=== PATIENT | female | born 1960 | race Caucasian/White ===

== ENCOUNTER 2016-10-08 16:12 | Emergency (ER) | payer OTHER ==
[~2016-10-08] VITALS: Ht 157.5 cm; Wt 136.1 kg
[2016-10-08] MEDS ORDERED: KHEDEZLA50 MG PO (16:27)
[2016-10-08] MEDS ORDERED: LASIX40 MG PO (16:27)
[2016-10-08] MEDS ORDERED: CIPRO500 MG PO (16:28)
[2016-10-08] MEDS ORDERED: KETOROLAC TROME10 MG PO (16:28)
[2016-10-08] MEDS ORDERED: METOPROLOL TART50 MG PO (16:28)
[2016-10-08] MEDS ORDERED: CIPRO500 MG/5 M PO (16:42)
== END 2016-10-08 16:48 | disposition home or self-care (01) ==
LOC: ED 16:12
DX: F41.9 Anxiety disorder, unspecified (principal); I10 Essential (primary) hypertension; E78.5 Hyperlipidemia, unspecified; Z90.710 Acquired absence of both cervix and uterus; Z90.89 Acquired absence of other organs; Z88.0 Allergy status to penicillin; Z88.2 Allergy status to sulfonamides; Z79.899 Other long term (current) drug therapy
CPT/HCPCS: 99283

== ENCOUNTER 2018-12-08 07:06 | Emergency (ER) | payer OTHER ==
[~2018-12-08] VITALS: Ht 157.5 cm; Wt 113.4 kg
--- OUTSIDE RECORDS SUMMARY | ~2018-12-08 | XMS | Encounter Summary ---
Demographics + + + | Address | [address] | | | [place] [address] | + + + | Home Phone | | + + + | Preferred Language | Unknown | + + + | Marital Status | Single | + + + | Moravian Affiliation | Unknown | + + + | Race | White | + + + | Ethnic Group | Not or | + + + Author + + + | Author | [facility] | + + + | Organization | [facility] | + + + | Address | Unknown | + + + | Phone | Unavailable | + + + Support + + +---------+ + | Name | Relationship | Address | Phone | + + +---------+ + | Fanny Baez | ECON | Unknown | | + + +---------+ + Care Team Providers + +------+ + | Care [place] Utility Worker Name | Role | Phone | + +------+ + | Irina Brooks | PCP | | + +------+ + Encounter Details +--------+ + + + + | Date | Type | Department | Care Team | Description | +--------+ + + + + | 03/26/ | MyChart | Cardiology General | | Please call to | | 2019 | Encounter | at [facility] [address] | | reschedule your | | | | Daron Luna Mailcode: | | Cardiology | | | | [address] [place] [address] for | | appointment | | | | Health and Healing, | | | | | | | | | | | | [place], [place] | | | | | | [address] | | | | | | [phone] | | | +--------+ + + + + Social History + +-------+ +--------+ + | Tobacco Use | Types | Packs/Day | Years | Date | | | | | Used | | + +-------+ +--------+ + | Former Smoker | | | | Quit: 02/05/1997 | + +-------+ +--------+ + + +---+---+---+ | Smokeless Tobacco: | | | | | Never Used | | | | + +---+---+---+ + + +---------+ + | Alcohol Use | Drinks/Week | oz/Week | Comments | + + +---------+ + | Not Asked | | | | + + +---------+ + + + + | Sex Assigned at | Date Recorded | | | | + + + | Not on file | | + + + + + + + | Job Start Date | Occupation | Industry | + + + + | Not on file | Not on file | Not on file | + + + + + + + + | Travel History | Travel Start | Travel End | + + + + + + | No recent travel history available. | + + documented as of this encounter Plan of Treatment Not on filedocumented as of this encounter Visit Diagnoses Not on filedocumented in this encounter"
--- OUTSIDE RECORDS SUMMARY | ~2018-12-08 | XMS | Encounter Summary ---
Demographics + + + | Address | [address] | | | [place] [address] | + + + | Home Phone | | + + + | Preferred Language | Unknown | + + + | Marital Status | Single | + + + | Scientologist Affiliation | Unknown | + + + | Race | White | + + + | Ethnic Group | Not or | + + + Author + + + | Author | [facility] | + + + | Organization | [facility] | + + + | Address | Unknown | + + + | Phone | Unavailable | + + + Support + + +---------+ + | Name | Relationship | Address | Phone | + + +---------+ + | Fanny Baez | ECON | Unknown | | + + +---------+ + Care Team Providers + +------+ + | Care Supervisor Concrete Block [employer] Name | Role | Phone | + +------+ + | Sky Solis MD | PCP | | + +------+ + Reason for Referral Consultation (Routine) +--------+--------+ + + + + | Status | Reason | Specialty | Diagnoses / | Referred By | Referred To | | | | | Procedures | Contact | Contact | +--------+--------+ + + + + | Closed | | Sleep | Diagnoses | Keesha Soriano | | | | Medicine | Sleep | MD Tani | Disorder Med | | | | | disorder | [address] | [address] | | | | | breathing | Ave | Jayson Crum | | | | | Metabolic | [place] | Jen Munoz | | | | | syndrome | [address] | Mailcode: | | | | | Procedures | Phone: | [phone] | | | | | CONSULT TO | [phone] | [place] | | | | | ADULT SLEEP | Fax: | Research | | | | | MEDICINE | [phone] | [place] [address] | | | | | | | [place], [place] | | | | | | | [address] | | | | | | | Phone: | | | | | | | [phone] | | | | | | | Fax: | | | | | | | [phone] | +--------+--------+ + + + + Reason for Visit + + + | Reason | Comments | + + + | Follow-up visit | | + + + Consultation (Routine) +--------+--------+ + + + + | Status | Reason | Specialty | Diagnoses / | Referred By | Referred To | | | | | Procedures | Contact | Contact | +--------+--------+ + + + + | Closed | | Cardiology | Diagnoses | Irma, | Christie | | | | | | Sky | MD Tani | | | | | Hyperlipidem | MD Wilfredo | [address] | | | | | ia | JULIAN | Cheryl | | | | | Procedures | INTERNAL | [place], [place] | | | | | CONSULT TO | MEDICINE | [address] | | | | | CARDIOLOGY | [address] | Phone: | | | | | | [address] | [phone] | | | | | | [address] | Fax: | | | | | | [place], | [phone] | | | | | | [place] [address] | | | | | | | Phone: | | | | | | | [phone] | | | | | | | Fax: | | | | | | | [phone] | | +--------+--------+ + + + + Encounter Details +--------+---------+ + + + | Date | Type | Department | Care Team | Description | +--------+---------+ + + + | 05/12/ | Office | Cardiology | Tani Soriano MD | Metabolic syndrome | | 2015 | Visit | Preventive at [facility] | [address] | (Primary Dx); Sleep | | | | [address] | [place], [place] | disorder breathing; | | | | Mailcode: CH9A | [address] | Vitamin D | | | | [facility] | [phone] | deficiency; | | | | and Healing, | | Hypothyroidism | | | | [address] | | | | | | [place], [place] | | | | | | [address] | | | | | | [phone] | | | +--------+---------+ + + + Social History + +-------+ +--------+ + | Tobacco Use | Types | Packs/Day | Years | Date | | | | | Used | | + +-------+ +--------+ + | Former Smoker | | | | Quit: 02/05/1997 | + +-------+ +--------+ + + + +---------+ + | Alcohol Use [...] + + documented as of this encounter Last Filed Vital Signs + + + + + | Vital Sign | Reading | Time Taken | Comments | + + + + + | Blood Pressure | 138/68 | 05/12/2014 1:53 PM | | | | | PDT | | + + + + + | Pulse | 70 | 05/12/2014 1:53 PM | | | | | PDT | | + + + + + | Temperature | 36.7 C (98 F) | 05/12/2014 1:53 PM | | | | | PDT | | + + + + + | Respiratory Rate | - | - | | + + + + + | Oxygen Saturation | 93% | 05/12/2014 1:53 PM | | | | | PDT | | + + + + + | Inhaled Oxygen | - | - | | | Concentration | | | | + + + + + | Weight | 137.8 kg (303 lb | 05/12/2014 1:53 PM | | | | 12.8 oz) | PDT | | + + + + + | Height | 155.7 cm (5' 1.3") | 05/12/2014 1:53 PM | | | | | PDT | | + + + + + | Body Mass Index | 56.84 | 05/12/2014 1:53 PM | | | | | PDT | | + + + + + documented in this encounter Progress Notes Tani Soriano MD - 05/12/2014 3:28 PM PDTFormatting of this note might be different from yvette goddard. Endocrinology Clinic Subjective Rebel Skinner is a 54 y.o. 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 Her weight w as 299 at home in the AM. Exercise: Not much because she has been working 14 hours daily, 6 days weekly. She walks her dog about weekly. She will start exercising next week after s he is done with the [employer] season. She has already joined a gym. She has occasional constipat ion and a dry moth, but she otherwise is tolerating the phentermine well. She has been sleep ing well. Her BP has been good. She had blood testing done through her PCP in mid-April, a bout 04/17/14. Her thyroid hormone results may have been slightly abnormal, but the rest of her results reportedly were normal. He increased her dose of of liothyronine from 5 to 7.5 mcg/d, but she has not started taking the higher dose yet because she is waiting to finish u sing the 5 mcg pills. 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/dl Metabolic syndrome Allergies Allergen Reactions Penicillin G Hives and Dyspnea Sulfa (Sulfonamide Antibiotics) Hives Current Outpatient Prescriptions Medication Sig ascorbic acid (VITAMIN C) 500 mg oral tablet Take 500 mg by mouth two times daily. Cholecalciferol, Vitamin D3, (VITAMIN D3) 2,000 unit oral tablet Take 2,000 Units by [facility] once daily. Desvenlafaxine (PRISTIQ) 50 mg oral tablet extended release 24 hr Take 50 mg by mouth o nce daily. levothyroxine 50 mcg oral tablet Take 50 mcg by mouth once daily. LOSARTAN-HYDROCHLOROTHIAZIDE ORAL Take by mouth. lovastatin 40 mg oral tablet Take 40 mg by mouth once daily in the evening. Administer with evening meal. meloxicam 15 mg oral tablet Take 15 mg by mouth once daily. metoprolol tartrate 50 mg oral tablet Take by mouth two times daily. phentermine 37.5 mg oral tablet 18.75 once daily in the morning. VITAMIN B COMPLEX ORAL Take by mouth. Physical Exam BP 138/68 | Pulse 70 | Temp (Src) 36.7 C (98 F) (Oral) | Ht 1.557 m (5' 1.3") | Wt 137. 803 kg (303 lb 12.8 oz) | SpO2 93% | BMI 56.84 kg/(m^2) Body mass index is 56.84 kg/(m^2). Alert, NAD, mood WNL Skin mild acanthosis nigricans Thyroid 20-25 g. No palpable nodules Cardiac-RRR, no murmur/S3/S4/rubs. No JVD. Pulses 2+. No bruits Abdomen: No hepatosplenomegaly, masses, or tenderness Extremities: trace to 1 + pretibial edema. Wt Readings from Last 4 Encounters: 05/12/14 137.803 kg (303 lb 12.8 oz) 01/06/14 139.164 kg (306 lb 12.8 oz) 10/28/13 141.069 kg (311 lb) Labs Component Latest Ref Rng 10/28/2013 10/28/2013 10/28/2013 10/28/2013 GLUCOSE, PL 60-99 mg/dL 95 BUN, PLASMA (LAB) 6-20 mg/dL [address] 0.6-1.10 mg/dL 0.83 EGFR >60 mL/min >60 SODIUM, PL 136-145 mmol/L 139 POTASSIUM, PL 3.4-5.0 mmol/L 3.6 CHLORIDE, PL 97-108 mmol/L 105 TOTAL CO2, PL 21-32 mmol/L 29 CALCIUM, PL 8.6-10.2 mg/dL 9.1 BILIRUBIN TOTAL 0.3-1.2 mg/dL 0.4 TOTAL PROTEIN, PLASMA (LAB) 6.4-8.2 g/dL 8.2 ALBUMIN, PLASMA 3.5-4.7 g/dL 3.6 ALK PHOS 42-98 U/L 90 AST(SGOT) 15-41 U/L 30 ALT (SGPT) 12-60 U/L 38 ANION GAP 5 CHOLESTEROL <200 mg/dL 160 TRIGLYCERIDES <150 mg/dL 147 HDL CHOL >40 mg/dL 53 LDL CHOLEST <100 mg/dL 78 VLDL CHOL <31 mg/dL 29 NON-HDL CHOL <130 mg/dL 107 TSH 0.50-5.07 mIU/L 1.09 FREE T4, SERUM 0.6-1.2 ng/dL 1.2 VITAMIN D 25-OH 30-80 ng/mL 30.5 ESR 0-30 mm/hr 43 (H) LIPOPROTEIN (A) <=29 mg/dL 102 (H) Component Latest Ref Rn 10/28/2013 WHITE CELL COUNT 4.40-11.00 K/cu mm 9.75 RED CELL COUNT 4.00-5.20 M/cu mm 4.52 HEMOGLOBIN 12.0-16.0 g/dL 13.4 HEMATOCRIT 36.0-46.0 % 40.2 MCV 80.0-96.0 fL 88.9 MCHC 33.0-35.5 g/dL 33.3 RDW SD 35.1-46.3 fL 44.8 PLATELET COUNT 150-400 K/cu mm 304 MPV 9.7-12.3 fL 8.7 (L) NRBC% 0.0-0.3 % 0.0 NRBC# 0.00-0.02 K/cu mm 0.00 NEUTROPHIL % 50.0-70.0 % 60.1 LYMPHOCYTE % 18.0-42.0 % 25.0 MONOCYTE % 3.5-9.0 % 7.7 EOS % 1.0-3.0 % 5.5 (H) BASO % 0.0-2.0 % 1.1 IMMATURE GRANULOCYTE% 0.0-0.6 % 0.6 NEUTROPHIL # 1.80-7.70 K/cu mm 5.85 LYMPHOCYTE # 1.00-4.80 K/cu mm 2.44 MONOCYTE # 0.10-0.90 K/cu mm 0.75 EOS # 0.00-0.50 K/cu mm 0.54 (H) BASO # 0.00-0.10 K/cu mm 0.11 (H) IMMATURE GRANULOCYTE# 0.00-0.03 K/cu mm 0.06 (H) Assessment Rebel Skinner is a 54 y.o. female who has medical problems noted above. 1. Dyslipidemia: High Lp(a), but mostly acceptable LDL-C, HDL-C and TG. An LDL-C < 70 may be preferable. Weight loss may help lower her LDL-C 2. Hypothyroidism: She has been euthyroid 3. BP is high normal, but acceptable for now 4. Metabolic syndrome: She has lost 3 more pounds of body weight, despite being less activ e. 5. Vitamin D deficiency: She was barely replete, but aceptable Plan 1. Have her PCP send us her recent lab results 2. She still needs to have a sleep study - she did not the person she saw with her sister chloé franz the [facility]. She will see someone here at [facility] 3. Continue phentermine 37.5 mg q AM 4. Resume regular exercise 5. Healthy dietary habits 6. RTC here in 4 months (due to long distance from [place] to [facility]) - F/U with PCP in yoly liriano visits here 7. Possible bariatric surgery after changing to her new insurance plan documented in this encounter Plan of Treatment Not on filedocumented as of this encounter Procedures + +--------+ + + + | Procedure Name | Priori | Date/Time | Associated Diagnosis | Comments | | | ty | | | | + +--------+ + + + | LAB REPORTS | | 04/24/2014 | | Results for this | | | | 12:00 AM | | procedure are in the | | | | PDT | | results section. | + +--------+ + + + documented in this encounter Results LAB REPORTS (04/24/2014 12:00 AM PDT) + + + | Narrative | Performed At | + + + | | | | | | + + + + + | Procedure Note | + + | Other, Faculty - 05/26/2014 2:32 PM PDT | + + documented in this encounter Visit Diagnoses + + | Diagnosis | + + | Metabolic syndrome - Primary Dysmetabolic Syndrome X | + + | Sleep disorder breathing Other sleep disturbances | + + | Vitamin D deficiency | + + | Hypothyroidism Unspecified hypothyroidism | + + documented in this encounter
--- OUTSIDE RECORDS SUMMARY | ~2018-12-08 | XMS | Encounter Summary ---
Demographics + + + | Address | [address] | | | [place] [address] | + + + | Home Phone | | + + + | Preferred Language | Unknown | + + + | Marital Status | Single | + + + | Taoism Affiliation | Unknown | + + + | Race | White | + + + | Ethnic Group | Not or | + + + Author + + + | Author | [facility] | + + + | Organization | [facility] | + + + | Address | Unknown | + + + | Phone | Unavailable | + + + Support + + +---------+ + | Name | Relationship | Address | Phone | + + +---------+ + | Fanny Baez | ECON | Unknown | | + + +---------+ + Care Team Providers + +------+ + | Care Casing Inspector Name | Role | Phone | + +------+ + | Sky Solis MD | PCP | | + +------+ + Encounter Details +--------+ + + + + | Date | Type | Department | Care Team | Description | +--------+ + + + + | 05/26/ | Abstract | Cardiology | Tani Soriano MD | | | 2017 | | Preventive at [facility] | [address] | | | | | [address] | [place], [place] | | | | | Mailcode: CH9A | [address] | | | | | [facility] | [phone] | | | | | and [place], | | | | | | [address] | | | | | | [place], [place] | | | | | | [address] | | | | | | [phone] | | | +--------+ + + + [...]
--- OUTSIDE RECORDS SUMMARY | ~2018-12-08 | XMS | Encounter Summary ---
Demographics + + + | Address | [address] | | | [place] [address] | + + + | Home Phone | | + + + | Preferred Language | Unknown | + + + | Marital Status | Single | + + + | Sikh Affiliation | Unknown | + + + | Race | White | + + + | Ethnic Group | Not or | + + + Author + + + | Author | [facility] | + + + | Organization | [facility] | + + + | Address | Unknown | + + + | Phone | Unavailable | + + + Support + + +---------+ + | Name | Relationship | Address | Phone | + + +---------+ + | Fanny Baez | ECON | Unknown | | + + +---------+ + Care Team Providers + +------+ + | Care Patient Financial Services Coordinator Name | Role | Phone | + [...] | | | | | disorder | [address] | [address] | | | | | breathing | Ave | Jayson Crum | | | | | Metabolic | [place] | Jen Munoz | | | | | syndrome | [address] | Mailcode: | | | | | Procedures | Phone: | [id number] | | | | | CONSULT TO | [phone] | [place] | | | | | ADULT SLEEP | Fax: | Research | | | | | MEDICINE | [phone] | [address] [address] | | | | | | | [place], [place] | | | | | | | [address] | | | | | | | Phone: | | | | | | | [phone] | | | | | | | Fax: | | | | | | | [phone] | +--------+--------+ + + + + Reason [...] | | Hyperlipidem | MD Wilfredo | [address] | | | | | ia | JUL[place] | Cheryl | | | | | Procedures | INTERNAL | [place], [place] | | | | | CONSULT TO | MEDICINE | [address] | | | | | CARDIOLOGY | [address] | Phone: | | | | | | [address] | [phone] | | | | | | [address] | Fax: | | | | | | [place], | [phone] | | | | | | [place] [address] | | | | | | | Phone: | | | | | | | [phone] | | | | | | | Fax: | | | | | | | [phone] | | +--------+--------+ + + + + Encounter Details +--------+---------+ + + + | Date | Type | Department | Care Team | Description | +--------+---------+ + + + | 05/12/ | Office | Cardiology | Tani Soriano MD | Metabolic syndrome | | 2015 | Visit | Preventive at [facility] | [address] | (Primary Dx); Sleep | | | | [address] | [place], [place] | disorder breathing; | | | | Mailcode: CH9A | [address] | Vitamin D | | | | [facility] | [phone] | deficiency; | | | | and Healing, | | Hypothyroidism | | | | [address] | | | | | | [place], [place] | | | | | | [address] | | | | | | [phone] | | | +--------+---------+ + + + [...] after s he is done with the [employer] (?) season. She has already joined a gym. [...] unit oral tablet Take 2,000 Units by [facility] once daily. Desvenlafaxine (PRISTIQ) 50 mg oral [...] saw with her sister chloé franz the [facility]. She will see someone here at [facility] 3. Continue phentermine 37.5 mg q AM 4. Resume regular exercise 5. Healthy dietary habits 6. RTC here in 4 months (due to long distance from [place] to [facility]) - F/U with PCP in [...]
--- OUTSIDE RECORDS SUMMARY | ~2018-12-08 | XMS | Encounter Summary ---
Demographics + + + | Address | [address] | | | [place] [address] | + + + | Home Phone | | + + + | Preferred Language | Unknown | + + + | Marital Status | Single | + + + | Baptism Affiliation | Unknown | + + + | Race | White | + + + | Ethnic Group | Not or | + + + Author + + + | Author | [facility] | + + + | Organization | [facility] | + + + | Address | Unknown | + + + | Phone | Unavailable | + + + Support + + +---------+ + | Name | Relationship | Address | Phone | + + +---------+ + | Fanny Baez | ECON | Unknown | | + + +---------+ + Care Team Providers + +------+ + | Care Special Education Administrator Name | Role | Phone | + +------+ + | Sky Solis MD | PCP | | + +------+ + Encounter Details +--------+ + + + + | Date | Type | Department | Care Team | Description | +--------+ + + + + | 09/13/ | MyChart | Cardiology | Tani Soriano MD | RE: Gastric Surgery | | 2017 | Encounter | Preventive at [facility] | [address] | | | | | [address] | [place], [place] | | | | | Mailcode: CH9A | [address] | | | | | [facility] | [phone] | | | | | and Healing, | | | | | | [address] | | | | | | [place], [place] | | | | | | [address] | | | | | | [phone] | | | +--------+ + + + [...]
--- OUTSIDE RECORDS SUMMARY | ~2018-12-08 | XMS | Encounter Summary ---
Demographics + + + | Address | [address] | | | [place] [address] | + + + | Home Phone | | + + + | Preferred Language | Unknown | + + + | Marital Status | Single | + + + | Presybeterian Affiliation | Unknown | + + + | Race | White | + + + | Ethnic Group | Not or | + + + Author + + + | Author | [facility] | + + + | Organization | [facility] | + + + | Address | Unknown | + + + | Phone | Unavailable | + + + Support + + +---------+ + | Name | Relationship | Address | Phone | + + +---------+ + | Fanny Baez | ECON | Unknown | | + + +---------+ + Care Team Providers + +------+ + | Care Quality Assurance Manager Name | Role | Phone | + +------+ + | Sky Solis MD | PCP | | + +------+ + Reason for Visit + + + | Reason | Comments | + + + | Follow-up in | | | outpatient clinic | | + + + | Follow-up visit | | + + + Consultation (Routine) +--------+--------+ + + + + | Status | Reason | Specialty | Diagnoses / | Referred By | Referred To | | | | | Procedures | Contact | Contact | +--------+--------+ + + + + | Closed | | Sleep | Diagnoses | Christie | Myles | | | | Medicine | Sleep | MD Tani | Disorder Med | | | | | disorder | [address] | [address] | | | | | breathing | [address] | [address] | | | | | Metabolic | [place], [place] | Jen Munoz | | | | | syndrome | [address] | Mailcode: | | | | | Procedures | Phone: | [id number] | | | | | CONSULT TO | [phone] | [facility] | | | | | ADULT SLEEP | Fax: | Research | | | | | MEDICINE | [phone] | [place] [address] | | | | | | | [place], [place] | | | | | | | [address] | | | | | | | Phone: | | | | | | | [phone] | | | | | | | Fax: | | | | | | | [phone] | +--------+--------+ + + + + Encounter Details +--------+---------+ + + + | Date | Type | Department | Care Team | Description | +--------+---------+ + + + | 05/18/ | Office | Sleep Disorder | Fatmata Travis MD | Obstructive sleep | | 2016 | Visit | [facility] | [address] | apnea (Primary Dx) | | | | [facility] | Jen Munoz [place], | | | | | [address] | [place] [address] | | | | | Jen Munoz Mailcode: | [phone] | | | | | [address]139 [facility] | | | | | | [facility] | | | | | | [address] [place], [place] | | | | | | [address] | | | | | | [phone] | | | +--------+---------+ + + + [...] + + + | Blood Pressure | 143/68 | 05/19/2015 9:54 AM | | | | | PDT | | + + + + + | Pulse | 86 | 05/19/2015 9:54 AM | | | | | PDT | | + + + + + | Temperature | - | - | | + + + + + | Respiratory Rate | - | - | | + + + + + | Oxygen Saturation | 94% | 05/19/2015 9:54 AM | | | | | PDT | | + + + + + | Inhaled Oxygen | - | - | | | Concentration | | | | + + + + + | Weight | 143.8 kg (317 lb) | 05/19/2015 9:54 AM | | | | | PDT | | + + + + + | Height | 157.5 cm (5' 2") | 05/19/2015 9:54 AM | | | | | PDT | | + + + + + | Body Mass Index | 57.98 | 05/19/2015 9:54 AM | | | | | PDT | | + + + + + documented in this encounter Progress Notes Fatmata Travis MD - 05/19/2015 9:47 AM PDTFormatting of this note might be different from th e original. [facility] Sleep Disorders Program Followup ASSESSMENT/PLAN Rebel Skinner has h/o GERD reports snoring, EDS, awakening coughing htn, HL, situational depression, ordered split PSG last visit 09/2014. spencer study 11/24 14 revealed severe CARLENE 29/hr, O2 Kenny 84%. 01/2015: start APAP 6-15 from [facility] in [place]. -Encouraged weight loss. -Followup: Next Appointment in [facility] is on 05/19/15 at 10:00 am with Fatmata Travis MD. Subjective In the interim since last visit she was told insurance wouldn't cover pap. Has sisters pap (got today. 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 Metabolic syndrome Past Medical History Diagnosis Date Morbid obesity with BMI of 50.0-59.9, adult (HCC) 10/28/2013 Hyperlipidemia 10/28/2013 Vitamin D deficiency 10/28/2013 Hypothyroidism 10/28/2013 Unspecified essential hypertension Thyroid nodule Depression Current outpatient prescriptions: ascorbic acid (VITAMIN C) 500 mg oral tablet, Take 500 mg by mouth once daily., Disp: , Rfl: ASPIRIN (ASPIR-81 ORAL), Take by mouth., Disp: , Rfl: Cholecalciferol, Vitamin D3, (VITAMIN D3) 2,000 unit oral tablet, Take 2,000 Units by mouth once daily., Disp: , Rfl: Desvenlafaxine (PRISTIQ) 50 mg oral tablet extended release 24 hr, Take 50 mg by mouth once daily., Disp: , Rfl: liothyronine (CYTOMEL) 5 mcg oral tablet, Take 5 mcg by mouth once daily., Disp: , Rfl: losartan-hydrochlorothiazide 100-25 mg oral tablet, Take 1 tablet by mouth once daily., Dis p: , Rfl: lovastatin 40 mg oral tablet, Take 40 mg by mouth once daily in the evening. Administer wit h evening meal., Disp: , Rfl: meloxicam 15 mg oral tablet, Take 15 mg by mouth once daily., Disp: , Rfl: metoprolol tartrate 50 mg oral tablet, Take by mouth two times daily., Disp: , Rfl: MOMETASONE FUROATE, BULK, MISC, Apply to affected area. Indications: aplly 1% cream topica lly, Disp: , Rfl: omeprazole 20 mg oral capsule,delayed release(DR/EC), Take 20 mg by mouth once daily., Disp : , Rfl: phentermine 37.5 mg oral tablet, Take 1 tablet by mouth once daily in the morning., Disp: 9 0 tablet, Rfl: 1 VITAMIN B COMPLEX ORAL, Take 1 tablet by mouth once daily., Disp: , Rfl: Objective There were no vitals taken for this visit. estimated body mass index is 57.44 kg/(m^2) as calculated from a height of 1.575 m (5' 2") as of 01/13/15 and a weight of 142.475 kg (314 lb 1.6 oz) as of 01/13/15. I reviewed the sleep questionnaire including a 12 point review of systems. Physical Exam Constitutional: Oriented to person, place, and time and well-developed, well-nourished, and in no distress. Head: Normocephalic and atraumatic. Nose: Nose normal. Eyes: Conjunctivae and EOM are normal. Neck: Normal range of motion. Musculoskeletal: Normal range of motion. Neurological: He is alert and oriented to person, place, and time. EOMI Skin: Skin is warm and dry. Psychiatric: Affect and judgment normal. Nursing note and vitals reviewed. documented in this encoun ter Plan of Treatment Not on filedocumented as of this encounter Visit Diagnoses + + | Diagnosis | + + | Obstructive sleep apnea - Primary Obstructive sleep apnea (adult) (pediatric) | + + documented in this encounter
--- OUTSIDE RECORDS SUMMARY | ~2018-12-08 | XMS | Encounter Summary ---
Demographics + + + | Address | [address] | | | [place] [address] | + + + | Home Phone | | + + + | Preferred Language | Unknown | + + + | Marital Status | Single | + + + | Buddhism Affiliation | Unknown | + + + | Race | White | + + + | Ethnic Group | Not or | + + + Author + + + | Author | [facility] | + + + | Organization | [facility] | + + + | Address | Unknown | + + + | Phone | Unavailable | + + + Support + + +---------+ + | Name | Relationship | Address | Phone | + + +---------+ + | Fanny Baez | ECON | Unknown | | + + +---------+ + Care Team Providers + +------+ + | Care Pipe Roller Name | Role | Phone | + +------+ + | Sky Solis MD | PCP | | + +------+ + Encounter Details +--------+ + + + + | Date | Type | Department | Care Team | Description | +--------+ + + + + | 12/04/ | Abstract | Cardiology | Tani Soriano MD | | | 2017 | | Preventive at [facility] | [address] | | | | | [address] | [place], [place] | | | | | Mailcode: CH9A | [address] | | | | | [facility] | [phone] | | | | | and [address], | | | | | | [address] | | | | | | [place], [place] | | | | | | [address] | | | | | | [phone] | | | +--------+ + + + [...]
--- OUTSIDE RECORDS SUMMARY | ~2018-12-08 | XMS | Encounter Summary ---
Demographics + + + | Address | [address] | | | [place] [address] | + + + | Home Phone | | + + + | Preferred Language | Unknown | + + + | Marital Status | Single | + + + | Baptist Affiliation | Unknown | + + + | Race | White | + + + | Ethnic Group | Not or | + + + Author + + + | Author | [facility] | + + + | Organization | [facility] | + + + | Address | Unknown | + + + | Phone | Unavailable | + + + Support + + +---------+ + | Name | Relationship | Address | Phone | + + +---------+ + | Fanny Baez | ECON | Unknown | | + + +---------+ + Care Team Providers + +------+ + | Care Credit Union Examiner Name | Role | Phone | + +------+ + | Sky Solis MD | PCP | | + +------+ + Encounter Details +--------+ + + + + | Date | Type | Department | Care Team | Description | +--------+ + + + + | 12/13/ | Abstract | Cardiology | Tani Soriano MD | | | 2017 | | Preventive at [facility] | [address] | | | | | [address] | [place], [place] | | | | | Mailcode: CH9A | [address] | | | | | [facility] | [phone] | | | | | and [address], | | | | | | [address] | | | | | | [place], [place] | | | | | | [address] | | | | | | [phone] | | | +--------+ + + + [...]
--- OUTSIDE RECORDS SUMMARY | ~2018-12-08 | XMS | Encounter Summary ---
Demographics + + + | Address | [address] | | | [place] [address] | + + + | Home Phone | | + + + | Preferred Language | Unknown | + + + | Marital Status | Single | + + + | Advent Affiliation | Unknown | + + + | Race | White | + + + | Ethnic Group | Not or | + + + Author + + + | Author | [facility] | + + + | Organization | [facility] | + + + | Address | Unknown | + + + | Phone | Unavailable | + + + Support + + +---------+ + | Name | Relationship | Address | Phone | + + +---------+ + | Fanny Baez | ECON | Unknown | | + + +---------+ + Care Team Providers + +------+ + | Care Corn Miller Name | Role | Phone | + +------+ + | Sky Solis MD | PCP | | + +------+ + Encounter Details +--------+ + + + + | Date | Type | Department | Care Team | Description | +--------+ + + + + | 06/22/ | Abstract | Cardiology | Tani Soriano MD | | | 2016 | | Preventive at [facility] | [address] | | | | | [address] | [place], [place] | | | | | Mailcode: CH9A | [address] | | | | | [facility] | [phone] | | | | | and [address], | | | | | | [address] | | | | | | [place], [place] | | | | | | [address] | | | | | | [phone] | | | +--------+ + + + [...]
--- OUTSIDE RECORDS SUMMARY | ~2018-12-08 | XMS | Encounter Summary ---
Demographics + + + | Address | [address] | | | [place] [address] | + + + | Home Phone | | + + + | Preferred Language | Unknown | + + + | Marital Status | Single | + + + | Nondenominational Affiliation | Unknown | + + + | Race | White | + + + | Ethnic Group | Not or | + + + Author + + + | Author | [facility] | + + + | Organization | [facility] | + + + | Address | Unknown | + + + | Phone | Unavailable | + + + Support + + +---------+ + | Name | Relationship | Address | Phone | + + +---------+ + | Fanny Baez | ECON | Unknown | | + + +---------+ + Care Team Providers + +------+ + | Care Lumber Carrier Operator Name | Role | Phone | + +------+ + | Sky Solis MD | PCP | | + +------+ + Encounter Details +--------+------+ + + + | Date | Type | Department | Care Team | Description | +--------+------+ + + + | 09/16/ | Lab | Laboratory at [facility] | | Hyperlipidemia; | | 2014 | | [address] | | Hypothyroidism, | | | | [place], [place] | | unspecified | | | | [address] | | hypothyroidism type; | | | | [phone] | | Metabolic syndrome; | | | | | | Vitamin D | | | | | | deficiency | +--------+------+ + + + Social History + +-------+ [...] | + +--------+ + + + | LIPID LAB [facility] - | Routin | 09/16/2014 | Hyperlipidemia | Results for this | | LIPID PROFILE- | e | 1:15 PM | Hypothyroidism, | procedure are in the | | PLASMA LIPIDS, HDL | | PDT | unspecified | results section. | | AND LDL | | | hypothyroidism type | | | | | | Metabolic syndrome | | + +--------+ + + + | VITAMIN D, | Routin | 09/16/2014 | Vitamin D | Results for this | | 25-HYDROXY, SERUM | e | 1:15 PM | deficiency | procedure are in the | | | | PDT | | results section. | + +--------+ + + + | COMPLETE METABOLIC | Routin | 09/16/2014 | Hyperlipidemia | Results for this | | SET | e | 1:15 PM | Vitamin D deficiency | procedure are in the | | (NA,K,CL,CO2,BUN,CRE | | PDT | Hypothyroidism, | results section. | | AT,GLUC,CA,AST,ALT,B | | | unspecified | | | IGGY TOTAL,ALK | | | hypothyroidism type | | | PHOS,ALB,PROT TOTAL) | | | Metabolic syndrome | | + +--------+ + + + documented in this encounter Results VITAMIN D, 25-HYDROXY, SERUM (09/16/2014 1:15 PM PDT) + +-------+ + + + | Component | Value | Ref Range | Performed | Pathologist | | | | | At | Signature | + +-------+ + + + | VITAMIN D | 33.1 | 30 - 80 ng/mL | [facility] | | | 25 HYDROXY | | | LABORATORY | | | | | | SERVICES, | | | | | | SPECIAL IMM | | | | | | + COAG | | + +-------+ + + + + + | Specimen | + + | Blood - Blood | + + + + + | Narrative | Performed At | + + + | REFERENCE INTERVAL: Vitamin D, 25-Hydroxy 0-17years: | [facility] | | Deficiency: less than 20 ng/mL Optimum level: | LABORATORY | | greater than or equal to 20 ng/mL* | SERVICES, | | *(Allison CL et al. Pediatrics 2008; 122:1128-38.) 18 | SPECIAL IMM + | | years and older: Deficiency: less than 20 | COAG | | ng/mL Insufficiency: 20-29 ng/mL | | | Optimum Level: 30-80 ng/mL High: | | | 81-150 ng/ml Toxic: Greater than | | | 150 ng/mL This assay accurately quantifies the sum of Vitamin D3 | | | 25-hydroxy and Vitamin D2, 25-hydroxy. Reference range | | | change effective 08/29/2012. | | + + + + + + + + | Performing | Address | City/State/Zipcode | Phone Number | | Organization | | | | + + + + + | [facility] | [address] | [place] [address] | | | SERVICES, SPECIAL | [address] | | | | IMM + [place]AG | | | | + + + + + COMPLETE METABOLIC SET (NA,K,CL,CO2,BUN,CREAT,GLUC,CA,AST,ALT,BILI TOTAL,ALK PHOS,ALB,PROT TOTAL) (09/16/2014 1:15 PM PDT) + +---------+ + + + | Component | Value | Ref Range | Performed | Pathologist | | | | | At | Signature | + +---------+ + + + | GLUCOSE, | 82 | 60 - 99 mg/dL | [facility] | | | PLASMA | | | LABORATORY | | | (LAB) | | | SERVICES, | | | | | | CORE | | + +---------+ + + + | BUN, PLASMA | 15 | 6 - 20 mg/dL | [facility] | | | (LAB) | | | LABORATORY | | | | | | SERVICES, | | | | | | CORE | | + +---------+ + + + | CREATININE | 0.82 | 0.60 - 1.10 | [facility] | | | PLASMA | | mg/dL | LABORATORY | | | (LAB) | | | SERVICES, | | | | | | CORE | | + +---------+ + + + | EGFR | >60 | >60 mL/min | [facility] | | | - | | | LABORATORY | | | [facility] | | | SERVICES, | | | | | | CORE | | + +---------+ + + + | EGFR NON | >60 | >60 mL/min | [facility] | | | -[facility] | | | LABORATORY | | | [facility] | | | SERVICES, | | | | | | CORE | | + +---------+ + + + | SODIUM, | 139 | 136 - 145 | [facility] | | | PLASMA | | mmol/L | LABORATORY | | | (LAB) | | | SERVICES, | | | | | | CORE | | + +---------+ + + + | POTASSIUM, | 4.2 | 3.4 - 5.0 | [facility] | | | PLASMA | | mmol/L | LABORATORY | | | (LAB) | | | SERVICES, | | | | | | CORE | | + +---------+ + + + | CHLORIDE, | 100 | 97 - 108 mmol/L | [facility] | | | PLASMA | | | LABORATORY | | | (LAB) | | | SERVICES, | | | | | | CORE | | + +---------+ + + + | TOTAL CO2, | 28 | 21 - 32 mmol/L | [facility] | | | PLASMA | | | LABORATORY | | | (LAB) | | | SERVICES, | | | | | | CORE | | + +---------+ + + + | CALCIUM, | 9.9 | 8.6 - 10.2 | [facility] | | | PLASMA | | mg/dL | LABORATORY | | | (LAB) | | | SERVICES, | | | | | | CORE | | + +---------+ + + + | BILIRUBIN | 0.3 | 0.3 - 1.2 mg/dL | [facility] | | | TOTAL | | | LABORATORY | | | | | | SERVICES, | | | | | | CORE | | + +---------+ + + + | TOTAL | 8.3 (H) | 6.4 - 8.2 g/dL | [facility] | | | PROTEIN, | | | LABORATORY | | | PLASMA | | | SERVICES, | | | (LAB) | | | CORE | | + +---------+ + + + | ALBUMIN, | 3.7 | 3.5 - 4.7 g/dL | [facility] | | | PLASMA | | | LABORATORY | | | (LAB) | | | SERVICES, | | | | | | CORE | | + +---------+ + + + | ALK PHOS | 102 (H) | 42 - 98 U/L | [facility] | | | | | | LABORATORY | | | | | | SERVICES, | | | | | | CORE | | + +---------+ + + + | AST(SGOT) | 35 | <=41 U/L | [facility] | | | | | | LABORATORY | | | | | | SERVICES, | | | | | | CORE | | + +---------+ + + + | ALT (SGPT) | 49 | <=60 U/L | [facility] | | | | | | LABORATORY | | | | | | SERVICES, | | | | | | CORE | | + +---------+ + + + | ANION | 11 | 4 - 11 mmol/L | [facility] | | | GAP(ALB | | | LABORATORY | | | CORRECTED) | | | SERVICES, | | | | | | CORE | | + +---------+ + + + | POTASSIUM | No Hemo | | [facility] | | | CMNT | | | LABORATORY | | | | | | SERVICES, | | | | | | CORE | | + +---------+ + + + | BILI T CMNT | No Hemo | | [facility] | | | | | | LABORATORY | | | | | | SERVICES, | | | | | | CORE | | + +---------+ + + + | AST CMNT | No Hemo | | [facility] | | | | | | LABORATORY | | | | | | SERVICES, | | | | | | CORE | | + +---------+ + + + | ANION GAP | 11 | mmol/L | [facility] | | | | | | LABORATORY | | | | | | SERVICES, | | | | | | CORE | | + +---------+ + + + + + | Specimen | + + | Blood - Blood | + + + + + | Narrative | Performed At | + + + | GFR is estimated using the MDRD equation recommended by the | [facility] | | National Kidney Disease Education Program. Estimated GFR | LABORATORY | | Interpretive Information: <60 mL/min/1.73 sq m | SERVICES, CORE | | Chronic Kidney Disease <15 mL/min/1.73 sq m | | | Kidney Failure Estimated GFR greater that 60 mL/min/1.73 sq m is of | | | limited clinical value. The MDRD equation is not valid in the | | | following situations: - Patients under 18 years of age - Severe | | | malnutrition or obesity - Vegetarian diet - Rapidly changing kidney | | | function | | + + + + + + + + | Performing | Address | City/State/Zipcode | Phone Number | | Organization | | | | + + + + + | [facility] | [address] | [place] [address] | | | [address]DA GONZALE[address] | [address] | | | + + + + + LIPID LAB - LIPID LAB PROFILE- PLASMA LIPIDS, HDL AND LDL (09/16/2014 1:15 PM PDT) + +---------+ + + + | Component | Value | Ref Range | Performed | Pathologist | | | | | At | Signature | + +---------+ + + + | TOTAL | 164 | <=200 mg/dl | [facility] | | | CHOLESTEROL | | | LAB | | | - LIPID | | | | | | LAB | | | | | + +---------+ + + + | VLDL | 35 (H) | <=31 mg/dl | [facility] | | | CHOLESTEROL | | | LAB | | | , | | | | | | CALCULATED | | | | | | - LIPID LAB | | | | | + +---------+ + + + | LDL, | 80 | <=100 mg/dl | [facility] | | | CHOLESTEROL | | | LAB | | | - LIPID | | | | | | LAB | | | | | + +---------+ + + + | HDL, | 49 | 49 - 120 mg/dl | [facility] | | | CHOLESTEROL | | | LAB | | | - LIPID | | | | | | LAB | | | | | + +---------+ + + + | TOTAL | 173 (H) | <=150 mg/dl | [facility] | | | TRIGLYCERID | | | LAB | | | E - LIPID | | | | | | LAB | | | | | + +---------+ + + + | NON-HDL | 115 | <=130 mg/dL | [facility] | | | CHOLESTEROL | | | LAB | | | (LIPID | | | | | | LAB) | | | | | + +---------+ + + + + + | Specimen | + + | Blood - Blood | + + + + + + + | Performing | Address | City/State/Zipcode | Phone Number | | Organization | | | | + + + + + | [facility] | [address] | [place], [place] | | | | [address] | [address] | | + + + + + | [facility] | [address] | [place], [place] | | | | [address] | [address] | | + + + + + documented in this encounter Visit Diagnoses + + | Diagnosis | + + | Hyperlipidemia Other and unspecified hyperlipidemia | + + | Hypothyroidism, unspecified hypothyroidism type | + + | Metabolic syndrome Dysmetabolic Syndrome X | + + | Vitamin D deficiency | + + documented in this encounter"
--- OUTSIDE RECORDS SUMMARY | ~2018-12-08 | XMS | Encounter Summary ---
Demographics + + + | Address | [address] | | | [place] [address] | + + + | Home Phone | | + + + | Preferred Language | Unknown | + + + | Marital Status | Single | + + + | Sabianism Affiliation | Unknown | + + + | Race | White | + + + | Ethnic Group | Not or | + + + Author + + + | Author | [facility] | + + + | Organization | [facility] | + + + | Address | Unknown | + + + | Phone | Unavailable | + + + Support + + +---------+ + | Name | Relationship | Address | Phone | + + +---------+ + | Fanny Baez | ECON | Unknown | | + + +---------+ + Care Team Providers + +------+ + | Care Remediation Consultant Name | Role | Phone | + +------+ + | Sky Solis MD | PCP | | + +------+ + Reason for Visit Consultation (Routine) +--------+--------+ + + + + | Status | Reason | Specialty | Diagnoses / | Referred By | Referred To | | | | | Procedures | Contact | Contact | +--------+--------+ + + + + | Closed | | Cardiology | Diagnoses | Irma, | Christie | | | | | Keesha Swanson | MD Tani | | | | | Hyperlipidem | MD Wilfredo | [address] | | | | | ia Ele[address] | [address] | [address] | | | | | | INTERNAL | [place], [place] | | | | | lipoprotein( | MEDICINE | [address] | | | | | a) | [address] | Phone: | | | | | Hypothyroidi | [address] | [phone] | | | | | sm | [address] | Fax: | | | | | Metabolic | [place], | [phone] | | | | | syndrome | [place] [address] | | | | | | Procedures | Phone: | | | | | | CONSULT TO | [phone] | | | | | | CARDIOLOGY | Fax: | | | | | | | [phone] | | +--------+--------+ + + + + Encounter Details +--------+---------+ + + + | Date | Type | Department | Care Team | Description | +--------+---------+ + + + | 05/18/ | Office | Cardiology | Tani Soriano MD | Hyperlipidemia, | | 2016 | Visit | Preventive at [facility] | [address] | unspecified | | | | [address] | [place], [place] | hyperlipidemia type | | | | Mailcode: CH9A | [address] | (Primary Dx); | | | | [place] [facility] | [phone] | Metabolic syndrome; | | | | and Healing, | | Other specified | | | | Building [address] | | hypothyroidism; CARLENE | | | | [place], [place] | | (obstructive sleep | | | | [address] | | apnea) - sleep study | | | | [phone] | | in [facility] of | | | | | | 30 per hour. | +--------+---------+ + + + Social History [...] + + + | Blood Pressure | 144/81 | 05/19/2015 12:08 PM | | | | | PDT | | + + + + + | Pulse | 92 | 05/19/2015 12:08 PM | | | | | PDT | | + + + + + | Temperature | - | - | | + + + + + | Respiratory Rate | - | - | | + + + + + | Oxygen Saturation | 98% | 05/19/2015 12:08 PM | | | | | PDT | | + + + + + | Inhaled Oxygen | - | - | | | Concentration | | | | + + + + + | Weight | 143.8 kg (317 lb) | 05/19/2015 12:08 PM | | | | | PDT | | + + + + + | Height | 157.5 cm (5' 2") | 05/19/2015 12:08 PM | | | | | PDT | | + + + + + | Body Mass Index | 57.98 | 05/19/2015 12:08 PM | | | | | PDT | | + + + + + documented in this encounter Progress Notes Tani Soriano MD - 05/19/2015 1:13 PM PDTFormatting of this note might be different from yvette goddard. Endocrinology Clinic Subjective Rebel Skinner is a 55 y.o. 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 She has not started using CPAP yet, but she will receive a device next week. Exercise: Not much. She is planning to start exercising with her 16 yo niece. Her son with metastatic cancer F eb 12th. This is the second child that she has lost. Another child from SIDS. She is having a lot of grief, as expected. She has not been trying to eat healthy foods. Her BP h as been okay at home < 140/76. It is probably high today because she did not take her antih ypertensive medications this AM. She has also been walking a lot this AM prior to her appoi ntment. She is tolerating the phentermine 37.5 mg well. She takes it at 8 AM. She had the sleep study in [facility] and apparently was found to have an AHI of 30 per hour . CPAP has been ordered, but she is still trying to appeal a blockade by her insurance plan . 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 Metabolic syndrome CARLENE (obstructive sleep apnea) - sleep study in [facility] of 30 per hour. Allergies Allergen Reactions Penicillin G Hives and Dyspnea Sulfa (Sulfonamide Antibiotics) Hives Current Medications Patient is Taking: Ascorbic Acid 500 Mg Tablet - Take 500 mg by mouth once daily. Aspir-81 Oral - Take by mouth. Cholecalciferol (vitamin D3) 2,000 Unit Tablet - Take 2,000 Units by mouth once daily. Desvenlafaxine Succinate Er 50 Mg Tablet,extended Release 24 Hr - Take 50 mg by mouth o nce daily. Liothyronine 5 Mcg Tablet - Take 5 mcg by mouth once daily. Losartan 100 Mg-hydrochlorothiazide 25 Mg Tablet - Take 1 tablet by mouth once daily. Lovastatin 40 Mg Tablet - Take 40 mg by mouth once daily in the evening. Administer wit h evening meal. Meloxicam 15 Mg Tablet - Take 15 mg by mouth once daily. Metoprolol Tartrate 50 Mg Tablet - Take by mouth two times daily. Mometasone Furoate (bulk) Misc - Apply to affected area. Indications: aplly 1% cream t opically Omeprazole 20 Mg Capsule,delayed Release - Take 20 mg by mouth once daily. Phentermine 37.5 Mg Tablet - Take 1 tablet by mouth once daily in the morning. Vitamin B Complex Oral - Take 1 tablet by mouth once daily. Physical Exam BP 144/81 | Pulse 92 | Ht 1.575 m (5' 2") | Wt 143.79 kg (317 lb) | SpO2 98% | BMI 57.97 kg /(m^2) Body mass index is 57.97 kg/(m^2). Alert, NAD, mood WNL Skin mild acanthosis nigricans Thyroid 20-25 g. No palpable nodules Cardiac-RRR, no murmur/S3/S4/rubs. No JVD. Pulses 2+. No bruits Abdomen: No hepatosplenomegaly, masses, or tenderness Extremities: trace pretibial edema. Wt Readings from Last 10 Encounters: 05/19/15 143.79 kg (317 lb) 05/19/15 143.79 kg (317 lb) 05/19/15 143.79 kg (317 lb) 01/13/15 142.475 kg (314 lb 1.6 oz) 01/12/15 142.429 kg (314 lb) 09/16/14 141.658 kg (312 lb 4.8 oz) 09/16/14 141.658 kg (312 lb 4.8 oz) 05/12/14 137.803 kg (303 lb 12.8 oz) [...] <=29 mg/dL 102 (H) Component Latest Ref Rng 10/28/2013 WHITE CELL COUNT 4.40-11.00 K/cu mm [...] IMMATURE GRANULOCYTE# 0.00-0.03 K/cu mm 0.06 (H) Component Latest Ref Rng 09/16/2014 09/16/2014 GLUCOSE, PL 60-99 mg/dL 82 BUN, PLASMA 6-20 mg/dL [address] 0.60-1.10 mg/dL 0.82 EGFR >60 mL/min >60 SODIUM, PL 136-145 mmol/L 139 POTASSIUM, PL 3.4-5.0 mmol/L 4.2 CHLORIDE, PL 97-108 mmol/L 100 TOTAL CO2, PL 21-32 mmol/L 28 CALCIUM, PL 8.6-10.2 mg/dL 9.9 BILIRUBIN TOTAL 0.3-1.2 mg/dL 0.3 TOTAL PROTEIN, PL 6.4-8.2 g/dL 8.3 (H) ALBUMIN, PLASMA 3.5-4.7 g/dL 3.7 ALK PHOS 42-98 U/L 102 (H) AST(SGOT) <=41 U/L 35 ALT (SGPT) <=60 U/L 49 ANION GAP 11 CHOLESTEROL <=200 mg/dl 164 VLDL CHOL <=31 mg/dl 35 (H) LDL CHOLEST <=100 mg/dl 80 HDL CHOL 49-120 mg/dl 49 TOTAL TRIGLYCERIDE - LIPID LAB <=150 mg/dl 173 (H) NON-HDL CHOLESTEROL <=130 mg/dL 115 VITAMIN D 25-OH 30-80 ng/mL 33.1 Assessment Rebel Skinner is a 55 y.o. female who has medical problems noted above. 1. Dyslipidemia: High Lp(a), but mostly acceptable LDL-C 80, HDL-C 49 and mildly elevated TG 173. An LDL-C < 70 may be preferable, but weight loss may help lower her LDL-C. Her lif estyle has been worse after the of her son, so we will not do repeat lab testing today . 2. Hypothyroidism: She has been euthyroid 3. BP is high normal today. Treatment with CPAP should help lower her BP 4. Metabolic syndrome: BMI 58. She will meet with our dietitian today. Treatment of CARLENE is likely to facilitate weight loss. Stress related to her son's after his struggle w ith metastatic esophageal cancer is negatively impacting her ability to lose weight. She wa s losing weight after adding phentermine, but the deterioration in her lifestyle after her s on's undermined the efficacy of the phentermine. Bariatric surgery would be very help ful in the endeavor to lower her excess body adiposity, but it has previously been blocked b y her insurance plan. 5. CARLENE: She needs to start treatment 6. Vitamin D deficiency: Her level was low normal in September Plan Use CPAP Meet with our dietitian, Marleny Caro, this afternoon Continue taking phentermine Healthy diet and regular physical activity Monitor BP RTC 4 months (sooner F/U is difficult because of the long distance) documented in this encounter Plan of Treatment Not on filedocumented as of this encounter Visit Diagnoses + + | Diagnosis | + + | Hyperlipidemia, unspecified hyperlipidemia type - Primary | + + | Metabolic syndrome Dysmetabolic Syndrome X | + + | Other specified hypothyroidism | + + | CARLENE (obstructive sleep apnea) - sleep study in [facility] of 30 per hour. | | Obstructive sleep apnea (adult) (pediatric) | + + documented in this encounter
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
--- OUTSIDE RECORDS SUMMARY | ~2018-12-08 | XMS | Encounter Summary ---
Demographics + + + | Address | [address] | | | [place] [address] | + + + | Home Phone | | + + + | Preferred Language | Unknown | + + + | Marital Status | Single | + + + | Denominational Affiliation | Unknown | + + + | Race | White | + + + | Ethnic Group | Not or | + + + Author + + + | Author | [facility] | + + + | Organization | [facility] | + + + | Address | Unknown | + + + | Phone | Unavailable | + + + Support + + +---------+ + | Name | Relationship | Address | Phone | + + +---------+ + | Fanny Baez | ECON | Unknown | | + + +---------+ + Care Team Providers + +------+ + | Care Optical Glass Etcher Name | Role | Phone | + +------+ + | Sky Solis MD | PCP | | + +------+ + Encounter Details +--------+ + + + + | Date | Type | Department | Care Team | Description | +--------+ + + + + | 11/17/ | Documentati | Sleep Disorder | Fatmata Travis MD | | | 2015 | on | Medicine at [facility] | [address] | | | | | Research Center | [address] [place], | | | | | [address] | [place] [address] | | | | | Jen Munoz Mailcode: | [phone] | | | | | [address] [facility] | | | | | | [facility] Center | | | | | | [address] [place], [place] | | | | | | [address] | | | | | | [phone] | | | +--------+ + + + [...]
--- OUTSIDE RECORDS SUMMARY | ~2018-12-08 | XMS | Encounter Summary ---
Demographics + + + | Address | [address] | | | [place] [address] | + + + | Home Phone | | + + + | Preferred Language | Unknown | + + + | Marital Status | Single | + + + | Buddhist Affiliation | Unknown | + + + | Race | White | + + + | Ethnic Group | Not or | + + + Author + + + | Author | [facility] | + + + | Organization | [facility] | + + + | Address | Unknown | + + + | Phone | Unavailable | + + + Support + + +---------+ + | Name | Relationship | Address | Phone | + + +---------+ + | Fanny Baez | ECON | Unknown | | + + +---------+ + Care Team Providers + +------+ + | Care Aqua Ammonia Operator Name | Role | Phone | + +------+ + | Sky Solis MD | PCP | | + +------+ + Reason for Visit + + + | Reason | Comments | + + + | Refill Request | phentermine 37.5 mg | + + + Encounter Details +--------+--------+ + + + | Date | Type | Department | Care Team | Description | +--------+--------+ + + + | 03/04/ | Refill | Cardiology | Tani Soriano MD | Refill Request | | 2016 | | Preventive at [facility] | [address] | (phentermine 37.5 mg | | | | [address] | [place], [place] | ) | | | | Mailcode: CH9A | [address] | | | | | [facility] | [phone] | | | | | and Healing, | | | | | | Building [address] | | | | | | [place], [place] | | | | | | [address] | | | | | | [phone] | | | +--------+--------+ + + + Social History + +-------+ [...]
--- OUTSIDE RECORDS SUMMARY | ~2018-12-08 | XMS | Encounter Summary ---
Demographics + + + | Address | [address] | | | [place] [address] | + + + | Home Phone [...] + + + | Author | [facility] | + + + | Organization | [facility] | + + + | Address | Unknown | + + + | Phone | Unavailable | + + + Support + + +---------+ + | Name | Relationship | Address | Phone | + + +---------+ + | Fanny Baez | ECON | Unknown | | + + +---------+ + Care Team Providers + +------+ + | Care Kitchen Work Supervisor Name | Role | Phone | + +------+ + | Sky Solis MD | PCP | | + +------+ + Reason for Referral Diagnostic Testing (Routine) +--------+--------+ + + + + | Status | Reason | Specialty | Diagnoses / | Referred By | Referred To | | | | | Procedures | Contact | Contact | +--------+--------+ + + + + | Denied | | Sleep | Diagnoses | Thaddeus | Myles To | | | | Medicine | Unspecified | MD Norma | Andrew Collado | | | | | sleep apnea | [address] | [address] [facility] | | | | | Procedures | [facility] | [address] | | | | | SPL[address] | [address] | Mailcode: | | | | | NIGHT PSG | [place], [place] | [address] | | | | | [place] | [address] | [place], [place] | | | | | POLYSOMNOGRA | Phone: | [phone] | | | | | PHY W/CPAP | [phone] | Phone: | | | | | | Fax: | [phone] | | | | | | [phone] | Fax: | | | | | | | [phone] | +--------+--------+ + + + + Reason for Visit + + + | Reason | Comments | + + + | CARLENE - obstructive | | | Sleep Apnea | | + + + | Consultation | | + + + Consultation (Routine) [...] | | | | | disorder | [address] | [address] | | | | | breathing | [address] | [address] | | | | | Metabolic | [place], [place] | [address] | | | | | syndrome | [address] | Mailcode: | | | | | Procedures | Phone: | [address] | | | | | CONSULT TO | [phone] | [facility] | | | | | ADULT SLEEP | Fax: | Research | | | | | MEDICINE | [phone] | [address] | | | | | | | [place], [place] | | | | | | | [address] | | | | | | | Phone: | | | | | | | [phone] | | | | | | | Fax: | | | | | | | [phone] | +--------+--------+ + + + + Encounter Details +--------+---------+ + + + | Date | Type | Department | Care Team | Description | +--------+---------+ + + + | 09/16/ | Office | Sleep Disorder | Norma Travis MD | Unspecified sleep | | 2015 | Visit | Medicine at [facility] | [address] | apnea (Primary Dx); | | | | Research Center | [address] [place], | Morbid obesity (HCC) | | | | [address] | [place] [address] | | | | | [address] Mailcode: | [phone] | | | | | [address] | | | | | | [facility] | | | | | | [address] [place], [place] | | | | | | [address] | | | | | | [phone] | | | +--------+---------+ + + + [...] + + + | Blood Pressure | 127/42 | 09/16/2014 9:44 AM | | | | | PDT | | + + + + + | Pulse | 73 | 09/16/2014 9:44 AM | | | | | PDT | | + + + + + | Temperature | 36.6 C (97.8 F) | 09/16/2014 9:44 AM | | | | | PDT | | + + + + + | Respiratory Rate | - | - | | + + + + + | Oxygen Saturation | 95% | 09/16/2014 9:44 AM | | | | | PDT | | + + + + + | Inhaled Oxygen | - | - | | | Concentration | | | | + + + + + | Weight | 141.7 kg (312 lb 4.8 | 09/16/2014 9:44 AM | | | | oz) | PDT | | + + + + + | Height | 156.8 cm (5' 1.75") | 09/16/2014 9:44 AM | | | | | PDT | | + + + + + | Body Mass Index | 57.58 | 09/16/2014 9:44 AM | | | | | PDT | | + + + + + documented in this encounter Progress Notes Norma Travis MD - 09/16/2014 9:35 AM PDTFormatting of this note might be different from yvette goddard. Referring: Sky Solis MD Primary Care: Sky Solis MD ASSESSMENT and PLAN Rebel Skinner has htn, HL, situational depression h/o GERD reports snoring, EDS, awakening coughing. - split sleep study ordered to evaluate for sleep-disordered breathing - send msg thru my chart regarding results of study and treatment options, [facility] [place] [facility]. -She agrees to take precautions to prevent driving while drowsy. -Weight loss encouraged for patients with BMI > 30 kg/m2. - See patient handout for other details of recommendations provided. - Followup in clinic to evaluate response to treatment. IDENTIFYING DATA/CHIEF COMPLAINT: Rebel is a 54 y.o. single female referred for evaluation of Chief Complaint Patient presents with CARLENE - obstructive Sleep Apnea . HISTORY OF PRESENT ILLNESS: Observation/tests/treatment history: I reviewed the patients records, sleep questionairre and pertinent details are summarized. Her symptoms include snoring, witnessed apneas and daytime somnolence. Endorses moderate s noring. Endorses trivial apneic events. No symptoms of narcolepsy or cataplexy. + vivid dreams. She endorses mild excessive movements or restless legs symptoms during sleep She has mild abnormal behavior at night including: dream enactment, nightmares and sleep talking She has mild morning headaches. She denies accidents or near misses on the roadway due to sleepiness or inattention. Scor es 5/24 on their [place] Sleepiness Scale. Daytime somnolence is mild She noted moderate insomnia. Estimates most common sleep time is roughly 9 to 6 . MEDS: Current outpatient prescriptions:ascorbic acid (VITAMIN C) 500 mg oral tablet, Take 500 mg by mouth once daily., Disp: , Rfl: Cholecalciferol, Vitamin D3, (VITAMIN [...] mouth two times daily., Disp: , Rfl: phentermine 37.5 mg oral tablet, Take 1 tablet by mouth once daily in the morning., Disp: 9 0 tablet, Rfl: 1 VITAMIN B COMPLEX ORAL, Take 1 tablet by mouth once daily., Disp: , Rfl: ALLERGIES: is allergic to penicillin g and sulfa (sulfonamide antibiotics). PAST MEDICAL AND SURGICAL HISTORY: Past Medical History Diagnosis Date Morbid obesity with BMI of 50.0-59.9, adult 10/28/2013 Hyperlipidemia 10/28/2013 Vitamin D deficiency 10/28/2013 Hypothyroidism 10/28/2013 Unspecified essential hypertension Thyroid nodule Depression Reviewed No results found for this basename: cxr No results found for this basename: ph,pco2,po2,hco3,O2sat,FIO2 No results found for this basename: pft I have personally reviewed the scanned questionnaire which details a 12 point review of sys tems, the past medical history, family history and social history. Physical Exam Constitutional: Oriented to person, place, and time and well-developed, well-nourished, and in no distress. HENT: MMP 4 Head: Normocephalic and atraumatic. Nose: Nose normal. Mouth/Throat: Oropharynx is clear and moist. Eyes: Conjunctivae and EOM are normal. Neck: Normal range of motion. Neck supple. Cardiovascular: Normal rate and normal heart sounds. Pulmonary/Chest: Effort normal and breath sounds normal. Abdominal: Soft. Bowel sounds are normal. Musculoskeletal: Normal range of motion. Neurological: He is alert and oriented to person, place, and time. Gait normal. Skin: Skin is warm and dry. Psychiatric: Affect and judgment normal. Nursing note and vitals reviewed. MD NORMA Pappas MD [facility] Sleep Disorders Program documented in this encoun ter Plan of Treatment + + +--------+ + + | Name | Type | Priori | Associated Diagnoses | Order Schedule | | | | ty | | | + + +--------+ + + | SPLIT N[facility] PSG | Procedures | Routin | Sleep apnea | Expected: 09/16/2014 | | | | e | | | + + +--------+ + + documented as of this encounter Visit Diagnoses + + | Diagnosis | + + | Unspecified sleep apnea - Primary | + + | Morbid obesity (HCC) Morbid obesity | + + documented in this encounter
--- OUTSIDE RECORDS SUMMARY | ~2018-12-08 | XMS | Clinical Summary ---
Demographics + + + | Address | [address] | | | [place] [address] | + + + | Home Phone | | + + + | Preferred Language | Unknown | + + + | Marital Status | Single | + + + | Anabaptism Affiliation | Unknown | + + + | Race | Unknown | + + + | Ethnic Group | Unknown | + + + Author + + + | Author | [facility] | | | and [place] | + + + | Organization | [facility] | | | and [place] | + + + | Address | Unknown | + + + | Phone | Unavailable | + + + Support + + +---------+ + | Name | Relationship | Address | Phone | + + +---------+ + | Fanny Baez | AILEEN | NA | | | | | NA, | | + + +---------+ + Care Team Providers + +------+ + | Care Armed Custom Protection Officer Name | Role | Phone | + +------+ + | Sky Solis MD | PCP | | + +------+ + Allergies Not on File Medications Not on file Active Problems Not on file Social History + +-------+ +--------+------+ | Tobacco Use | Types | Packs/Day | Years | Date | | | | | Used | | + +-------+ +--------+------+ | Never Assessed | | | | | + +-------+ +--------+------+ + + + | Sex Assigned at [...] recent travel history available. | + + Last Filed Vital Signs Not on file Plan of Treatment + + + + + | Health Maintenance | Due Date | Last Done | Comments | + + + + + | Vaccine: | | | | | Dtap/Tdap/Td (1 - | 9 | | | | Tdap) | | | | + + + + + | Cervical Cancer | | | | | Screening (Pap) | 0 | | | + + + + + | Vaccine: Zoster (1 | | | | | of 2) | 0 | | | + + + + + | Breast Cancer | | 04/01/2015, 03/19/2014, | | | Screening | 8 | 12/04/2012 | | + + + + + | Vaccine: Influenza | | | | | (#1) | 9 | | | + + + + + Results Not on filefrom Last 3 Months Insurance +-------+--------+ +--------+ + +------+ | Payer | Benefi | Subscriber | Effect | Phone | Address | Type | | | t Plan | ID | madeline | | | | | | / | | Dates | | | | | | Group | | | | | | +-------+--------+ +--------+ + +------+ | MODA | MODA | [id number] | 07/07/19 | [phone] | [address] | PPO | | | [employer] | | 12-Pre | 9 | [phone] | | | | [place] | | sent | | [place], | | | | [place] | | | | [place] [address] | | +-------+--------+ +--------+ + +------+ + +--------+ +--------+ + + | Guarantor Name | Accoun | Relation to | Date | Phone | Billing Address | | | t Type | Patient | of | | | | | | | | | | + +--------+ +--------+ + + | Rebel Skinner | Person | Self [birth year] | [address] | | | al/Fam | | 1961 | [phone] | [place] [address] | | | vicky | | | 3 (Home) | | + +--------+ +--------+ + + Advance Directives Patient has advance care planning documents on file. For more information, please contact:[facility] [place] [address]"
--- OUTSIDE RECORDS SUMMARY | ~2018-12-08 | XMS | Encounter Summary ---
Demographics + + + | Address | [address] | | | [place] [address] | + + + | Home Phone | | + + + | Preferred Language | Unknown | + + + | Marital Status | Single | + + + | Restorationist Affiliation | Unknown | + + + | Race | White | + + + | Ethnic Group | Not or | + + + Author + + + | Author | [facility] | + + + | Organization | [facility] | + + + | Address | Unknown | + + + | Phone | Unavailable | + + + Support + + +---------+ + | Name | Relationship | Address | Phone | + + +---------+ + | Fanny Baez | ECON | Unknown | | + + +---------+ + Care Team Providers + +------+ + | Care Flat Lock Operator Name | Role | Phone | + +------+ + | Sky Solis MD | PCP | | + +------+ + Encounter Details +--------+ + + + + | Date | Type | Department | Care Team | Description | +--------+ + + + + | 12/13/ | Abstract | Cardiology | Tani Soriano MD | | | 2017 | | Preventive at [facility] | [address] | | | | | [address] | [place], [place] | | | | | Mailcode: CH9A | [address] | | | | | [facility] | [phone] | | | | | and [address], | | | | | | [address] | | | | | | [place], [place] | | | | | | [address] | | | | | | [phone] | | | +--------+ + + + [...]
--- OUTSIDE RECORDS SUMMARY | ~2018-12-08 | XMS | Encounter Summary ---
Demographics + + + | Address | [address] | | | [place] [address] | + + + | Home Phone [...] Author + + + | Author | [facility] | + + + | Organization | [facility] | + + + | Address | Unknown | + + + | Phone | Unavailable | + + + Support + + +---------+ + | Name | Relationship | Address | Phone | + + +---------+ + | Fanny Baez | ECON | Unknown | | + + +---------+ + Care Team Providers + +------+ + | Care Machine Carton Marker Name | Role | Phone | + +------+ + | Sky Solis MD | PCP | | + +------+ + Encounter Details +--------+ + + + + | Date | Type | Department | Care Team | Description | +--------+ + + + + | 06/17/ | Documentati | Mick Dyer | [facility], | | | 2013 | on | Diabetes Health | Endocrinology | | | | | [facility] | | | | | | [address] | | | | | [address] | | | | | | Physician's | | | | | | Pavilion | | | | | | [facility] | | | | | | [place], [place] | | | | | | [address] | | | | | | [phone] | | | +--------+ + + + + Social History + +-------+ +--------+------+ | Tobacco [...]
--- OUTSIDE RECORDS SUMMARY | ~2018-12-08 | XMS | Encounter Summary ---
Demographics + + + | Address | [address] | | | [place] [address] | + + + | Home Phone | | + + + | Preferred Language | Unknown | + + + | Marital Status | Single | + + + | Alevism Affiliation | Unknown | + + + [...] Team Providers + +------+ + | Care Carpenter Mold Name | Role | Phone | + +------+ + | Sky Solis MD | PCP | | + +------+ + Reason for Visit + + + | Reason | Comments | + + + | Return Patient | | + + + Consultation (Routine) +--------+--------+ + + + + | Status | Reason | Specialty | Diagnoses / | Referred By | Referred To | | | | | Procedures | Contact | Contact | +--------+--------+ + + + + | Closed | | Endocrinology | | Irma, | [facility] | | | | , Diabetes & | | Sky | [address] | | | | Metabolism | | MD Wilfredo | [address] | | | | | | [address] | | | | | | INTERNAL | Physician's | | | | | | MEDICINE | Pavilion | | | | | | [address] | Physician's | | | | | | [address] | Pavilion | | | | | | [address] | [place], [place] | | | | | | [place], | [address] | | | | | | [place] [address] | Phone: | | | | | | Phone: | [phone] | | | | | | [phone] | Fax: | | | | | | Fax: | [phone] | | | | | | [phone] | | +--------+--------+ + + + + Encounter Details +--------+---------+ + + + | Date | Type | Department | Care Team | Description | +--------+---------+ + + + | 01/06/ | Office | Mick Dyer | Tani Soriano MD | Hyperlipidemia | | 2014 | Visit | Diabetes Health | [address] | (Primary Dx); | | | | [facility] | [place], [place] | Hypothyroidism; | | | | [address] | [address] | Elevated | | | | [address] | [phone] | lipoprotein(a) 102 | | | | Physician's | | mg/dl; Metabolic | | | | Pavilion | | syndrome | | | | Phys[facility] Pavilion | | | | | | [place], [place] | | | | | | [address] | | | | | | [phone] | | | +--------+---------+ + + + [...] + + + | Blood Pressure | 136/73 | 01/06/2014 4:36 PM | | | | | PST | | + + + + + | Pulse | 76 | 01/06/2014 4:36 PM | | | | | PST | | + + + + + | Temperature | - | - | | + + + + + | Respiratory Rate | - | - | | + + + + + | Oxygen Saturation | - | - | | + + + + + | Inhaled Oxygen | - | - | | | Concentration | | | | + + + + + | Weight | 139.2 kg (306 lb | 01/06/2014 4:36 PM | | | | 12.8 oz) | PST | | + + + + + | Height | - | - | | + + + + + | Body Mass Index | 56.11 | 10/28/2013 1:06 PM | | | | | PDT | | + + + + + documented in this encounter Progress Notes Tani Soriano MD - 01/06/2014 5:16 PM PSTFormatting of this note might be different from yvette goddard. Endocrinology Clinic Subjective Rebel Skinner is a 53 y.o. 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 She has been walking about 3/4 mile 3 times weekly. No chest pain, chest pressure, chest discomfort, or exertional dyspnea. Her BP is unchanged after starting treatment with phentermine 18.75 mg /d. She is tolerating the phentermine well. Her insurance plan has blocked bariatric surge ry, but her plan may change in June. Patient Active Problem List Diagnosis Morbid obesity [...] unit oral tablet Take 2,000 Units by [facility] once daily. Desvenlafaxine (PRISTIQ) 50 [...] ORAL Take by mouth. Physical Exam BP 136/73 | Pulse 76 | Wt 139.164 kg (306 lb 12.8 oz) | BMI 56.1 kg/(m^2) Body mass index is 56.1 kg/(m^2). Alert, NAD, mood WNL Skin mild acanthosis nigricans Thyroid 20-25 g. No palpable nodules Cardiac-RRR, no murmur/S3/S4/rubs. No JVD. Pulses 2+. No bruits Abdomen: No hepatosplenomegaly, masses, or tenderness Extremities: no pretibial edema. Wt Readings from Last 4 Encounters: 01/06/14 139.164 kg (306 lb 12.8 oz) [...] 0.06 (H) Assessment Rebel Skinner is a 53 y.o. female who has medical problems noted above. 1. Dyslipidemia: High Lp(a), but mostly acceptable LDL-C, HDL-C and TG. An LDL-C < 70 may be preferable. Weight loss may help lower her LDL-C 2. Hypothyroidism: She is euthyroid 3. BP is acceptable 4. Metabolic syndrome: She has lost 4.5 lbs in about 2 months. She cn try increasing the phentermine to full dose 5. Vitamin D deficiency: She is barely replete Plan 1. Phentermine 37.5 mg q AM 2. Regular exercise 3. Healthy dietary habits 4. RTC here in 4 months (due to long distance from [place]) with F/U with her PCP in abou t 2 Months 5. Possible bariatric surgery after changing to her new insurance plan documented in this encounter Plan of Treatment Not on filedocumented as of this encounter Visit Diagnoses + + | Diagnosis | + + | Hyperlipidemia - Primary Other and unspecified hyperlipidemia | + + | Hypothyroidism Unspecified hypothyroidism | + + | Elevated lipoprotein(a) 102 mg/dl Other disorders of lipoid metabolism | + + | Metabolic syndrome Dysmetabolic Syndrome X | + + documented in this encounter"
--- OUTSIDE RECORDS SUMMARY | ~2018-12-08 | XMS | Encounter Summary ---
Demographics + + + | Address | [address] | | | [place] [address] | + + + | Home Phone | | + + + | Preferred Language | Unknown | + + + | Marital Status | Single | + + + | Hindu Affiliation | Unknown | + + + [...] Team Providers + +------+ + | Care Customs Director Name | Role | Phone | + +------+ + | Sky Solis MD | PCP | | + +------+ + Encounter Details +--------+------+ + + + | Date | Type | Department | Care Team | Description | +--------+------+ + + + | 09/16/ | Lab | Laboratory at [facility] | | Hyperlipidemia; | | 2014 | | [address] | | Hypothyroidism, | | | | [place], [place] | | unspecified | | | | [address] | | hypothyroidism type; | | | | [phone] | | Metabolic syndrome; | | | [...] [facility] | [address] | [place] [address] | | | SERVICES, SPECIAL | PARK [...] | | | LABORATORY | | | FIJIAN | | | SERVICES, | | | [...] | + + + + + | [facility] | [address] | [place] [address] | | | NELDA GONZALEZ | IL[address] [...] | + + + + + | [facility] | [address] | [place], [place] | | | | [address] | [address] | | + + + + + | [facility] | [address] | [place], [place] | | | | [address] | [address] | | + + + + + [...]
--- OUTSIDE RECORDS SUMMARY | ~2018-12-08 | XMS | Encounter Summary ---
Demographics + + + | Address | [address] | | | [place] [address] | + + + | Home Phone | | + + + | Preferred Language | Unknown | + + + | Marital Status | Single | + + + | Protestant Affiliation | Unknown | + + + | Race | White | + + + | Ethnic Group | Not or | + + + Author + + + | Author | [facility] | + + + | Organization | [facility] | + + + | Address | Unknown | + + + | Phone | Unavailable | + + + Support + + +---------+ + | Name | Relationship | Address | Phone | + + +---------+ + | Fanny Baez | ECON | Unknown | | + + +---------+ + Care Team Providers + +------+ + | Care Machine Worker Name | Role | Phone | [...] | | | | | disorder | [address] | [address] | | | | | breathing | [address] | [address] | | | | | Metabolic | [place], [place] | [place]oz | | | | | syndrome | [address] | Mailcode: | | | | | Procedures | Phone: | [id number] | | | | | CONSULT TO | [phone] | [facility] | | | | | [facility]ULT [facility] | Fax: | Research | | | | | MEDICINE | [phone] | [address] | | | | | | | [place], [place] | | | | | | | [address] | | | | | | | Phone: | | | | | | | [phone] | | | | | | | Fax: | | | | | | | [phone] | +--------+--------+ + + + + Encounter Details +--------+---------+ + + + | Date | Type | Department | Care Team | Description | +--------+---------+ + + + | 01/12/ | Office | Sleep Disorder | Fatmata Travis MD | Obstructive sleep | | 2015 | Visit | [facility] at [facility] | [address] | apnea (Primary Dx) | | | | [facility] | [place], | | | | | [address] | [place] [address] | | | | | [place] Mailcode: | [phone] | | | | | [id number] | | | | | | [facility] | | | | | | [address] [place], [place] | | | | | | [address] | | | | | | [phone] | | | +--------+---------+ + + + [...] + + + | Blood Pressure | 109/66 | 01/12/2015 3:33 PM | | | | | PST | | + + + + + | Pulse | 87 | 01/12/2015 3:33 PM | | | | | PST | | + + + + + | Temperature | - | - | | + + + + + | Respiratory Rate | - | - | | + + + + + | Oxygen Saturation | 95% | 01/12/2015 3:33 PM | | | | | PST | | + + + + + | Inhaled Oxygen | - | - | | | Concentration | | | | + + + + + | Weight | 142.4 kg (314 lb) | 01/12/2015 3:33 PM | | | | | PST | | + + + + + | Height | 157.5 cm (5' 2") | 01/12/2015 3:33 PM | | | | | PST | | + + + + + | Body Mass Index | 57.43 | 01/12/2015 3:33 PM | | | | | PST | | + + + + + documented in this encounter Progress Notes Fatmata Travis MD - 01/12/2015 3:52 PM PSTFormatting of this note might be different from th e original. Durable Medical Equipment Order & Demographic Data Patient name Yousif Singh 1960 Address [address] [place] [address] No relevant phone numbers on file. Insurance Information Payor: MOD[employer] / Plan: [employer] / Product Type: PPO / F/O Payor-Plan/Addr Policy # Cert # Phone # 1 [employer] - [employer] [id number] [address] [address] Sub Name: YOUSIF SINGH Rel to Pt: Diagnosis: Obstructive Sleep Apnea (ICD-10: G47.33) Length of need: Lifetime (99 mo) 1. Auto CPAP set to pressure Minimum = 6 and Maximum = 15 cm H2O with heated humidification and wireless modem; assign [facility] Sleep Program as patient s provider in online data base. 2. Fit and supply mask, fit to patient's comfort. Refills as needed. - As needed to complete above order, provide required accessories with replacements as foll ows or as insurance permits: Mask interface, 1 per 3 months Cushion replacement, 2 per month Pillow set, replacement, 2 set per month Full-face mask, 1 per 3 months Full-face cushion replacement 1 per month Headgear, 1 per 6 months Tubing, 1 per 3 months Filter, disposable, 2 per month Filter, non-disposable, 1 per 6 months Chin band, 1 per 6 months Humidifier chamber, 1 per 6 months MD Fatmata Pappas MD Date: 01/12/2015 Sent to [facility], Fatmata Fournier MD - 015 3:27 PM PST [facility] Sleep Disorders Program Followup ASSESSMENT/PLAN Yousif Singh has h/o GERD reports snoring, EDS, awakening coughing htn, HL, situational depression, ordered split PSG last visit 09/2014. danby study 11/06 015 revealed severe CARLENE 29/hr, O2 Kenny 84%. -Encouraged weight loss. - start APAP 6-15 from [facility] in [place]. Subjective In the interim since last visit she had PSG and reviewed results with her. Reports awaekni ng coughing and discussed possibilyt of reflux Patient Active Problem List Diagnosis Morbid obesity with BMI of 50.0-59.9, adult ([facility]) Hyperlipidemia Vitamin D deficiency Hypothyroidism Elevated lipoprotein(a) 102 mg/dl Metabolic syndrome Past Medical History Diagnosis Date Morbid obesity with BMI of 50.0-59.9, adult ([facility]) 10/28/2013 Hyperlipidemia 10/28/2013 Vitamin D deficiency 10/28/2013 [...] this visit. estimated body mass index is 57.62 kg/(m^2) as calculated from a height of 1.568 m (5' 1.75 ") as of 09/16/14 and a weight of 141.658 kg (312 lb 4.8 oz) as of 09/16/14. I reviewed the sleep questionnaire including a [...]
--- OUTSIDE RECORDS SUMMARY | ~2018-12-08 | XMS | Encounter Summary ---
Demographics + + + | Address | [address] | | | [place] [address] | + + + | Home Phone | | + + + | Preferred Language | Unknown | + + + | Marital Status | Single | + + + | Gnosticism Affiliation | Unknown | + + + [...] Team Providers + +------+ + | Care Plush Cutter Name | Role | Phone | + +------+ + | Sky Solis MD | PCP | | + +------+ + Encounter Details +--------+ + + + + | Date | Type | Department | Care Team | Description | +--------+ + + + + | 11/24/ | Abstract | Cardiology | Tani Soriano MD | | | 2016 | | Preventive at [facility] | [address] | | | | | [address] | [place], [place] | | | | | Mailcode: CH9A | [phone] | | | | | [facility] | [phone] | | | | | and [address], | | | | | | [address] | | | | | | [place], [place] | | | | | | [address] | | | | | | [phone] | | | +--------+ + + + [...]
--- OUTSIDE RECORDS SUMMARY | ~2018-12-08 | XMS | Clinical Summary ---
Demographics + + + | Address | [address] | | | [place] [address] | + + + | Home Phone | | + + + | Preferred Language | Unknown | + + + | Marital Status | Single | + + + | Faith Affiliation | Unknown | + + + | Race | White | + + + | Ethnic Group | Not or | + + + Author + + + | Author | [facility] | + + + | Organization | [facility] | + + + | Address | Unknown | + + + | Phone | Unavailable | + + + Support + + +---------+ + | Name | Relationship | Address | Phone | + + +---------+ + | Fanny Baez | ECON | Unknown | | + + +---------+ + Care Team Providers + +------+ + | Care Overlock Elastic Attacher Name | Role | Phone | + +------+ + | Irina Brooks | PCP | | + +------+ + Source Comments [facility]UL is fully live on both EpicCare Ambulatory and EpicCare InPatient.[facility] Allergies + + + + + + | Active Allergy | Reactions | Severity | Noted | Comments | | | | | Date | | + + + + + + | Penicillin G | Hives, Dyspnea | | 10/29/19 | | | | | | 14 | | + + + + + + | Sulfa (Sulfonamide | Hives | | 10/29/19 | | | Antibiotics) | | | 14 | | + + + + + + | Adhesive Tape | Rash, Contact | | 02/07/19 | | | | Dermatitis | | 18 | | + + + + + + Medications + + + +---------+------+------+-------+ | Medication | Sig | Dispensed | Refills | Star | End | Statu | | | | | | t | Date | s | | | | | | Date | | | + + + +---------+------+------+-------+ | Desvenlafaxine | Take 50 mg by mouth | | 0 | | | Activ | | (PRISTIQ) 50 mg oral | once daily. | | | | | e | | tablet extended | | | | | | | | release 24 hr | | | | | | | + + + +---------+------+------+-------+ | metoprolol | Take 50 mg by mouth | | 0 | | | Activ | | tartrate 50 mg oral | two times daily. | | | | | e | | tablet | | | | | | | + + + +---------+------+------+-------+ | Cholecalciferol, | Take 2,000 Units by | | 0 | | | Activ | | Vitamin D3, (VITAMIN | mouth once daily. | | | | | e | | D3) 2,000 unit oral | | | | | | | | tablet | | | | | | | + + + +---------+------+------+-------+ | VITAMIN B COMPLEX | Take 1 tablet by | | 0 | | | Activ | | ORAL | mouth two times | | | | | e | | | daily. | | | | | | + + + +---------+------+------+-------+ | liothyronine | Take 7.5 mcg by | | 0 | | | Activ | | (CYTOMEL) 5 mcg oral | mouth once daily. | | | | | e | | tablet | | | | | | | + + + +---------+------+------+-------+ | omeprazole 20 mg | Take 20 mg by mouth | | 0 | | | Activ | | oral capsule,delayed | once daily. | | | | | e | | release(DR/EC) | | | | | | | + + + +---------+------+------+-------+ | MOMETASONE | Apply to affected | | 0 | | | Activ | | FUROATE, BULK, | area. Indications: | | | | | e | | MISCIndications: | aplly 1% cream | | | | | | | aplly 1% cream | topically | | | | | | | topically | | | | | | | + + + +---------+------+------+-------+ | losartan 100 mg | Take 100 mg by mouth | | 0 | | | Activ | | oral | once daily. | | | | | e | | tabletIndications: | Indications: | | | | | | | hypertension | hypertension | | | | | | + + + +---------+------+------+-------+ | predniSONE 20 mg | Take 20 mg by mouth | | 0 | | | Activ | | oral tablet | once daily as needed | | | | | e | | | (gout). | | | | | | + + + +---------+------+------+-------+ | Iron 18 mg oral | Take 18 mg by mouth | | 0 | | | Activ | | tablet | two times daily. | | | | | e | | | Plus 30 mg of | | | | | | | | vitamin C per pill | | | | | | + + + +---------+------+------+-------+ | | Take 1 tablet by | | 0 | | | Activ | | multivitamin-mineral | mouth once daily. | | | | | e | | s oral tablet | | | | | | | + + + +---------+------+------+-------+ | lovastatin 20 mg | Take 1 tablet by | 90 | 11 | 10/2 | | Activ | | oral tablet | mouth once daily in | tablet | | 20 | | e | | | the evening. | | | 17 | | | | | Administer with | | | | | | | | evening meal. | | | | | | + + + +---------+------+------+-------+ | CALCIUM CITRATE | Take 1 tablet by | | 0 | | | Activ | | ORAL | mouth three times | | | | | e | | | daily. | | | | | | + + + +---------+------+------+-------+ | estradiol 0.01 % | Insert 2 g vaginally | | 0 | | | Activ | | (0.1 mg/gram) | once daily. | | | | | e | | vaginal cream | | | | | | | + + + +---------+------+------+-------+ | colchicine 0.6 mg | Take 0.6 mg by mouth | | 0 | | | Activ | | oral tablet | two times daily. | | | | | e | + + + +---------+------+------+-------+ Active Problems + + + | Problem | Noted Date | + + + | Controlled type 2 diabetes mellitus without complication, without | 11/28/2016 | | long-term current use of insulin | | + + + | CARLENE (obstructive sleep apnea) - sleep study in [place] [facility] | 05/23/2015 | | 30 per hour. | | + + + | Elevated lipoprotein(a) 102 mg/dl | 12/01/2013 | + + + | Metabolic syndrome | 12/01/2013 | + + + | Morbid obesity with BMI of 50.0-59.9, adult | 10/28/2013 | + + + | Hyperlipidemia | 10/28/2013 | + + + | Vitamin D deficiency | 10/28/2013 | + + + | Hypothyroidism | 10/28/2013 | + + + Social History + +-------+ [...] | + + Last Filed Vital Signs + + + + + | Vital Sign | Reading | Time Taken | Comments | + + + + + | Blood Pressure | 145/75 | 10/24/2017 4:22 PM | | | | | PDT | | + + + + + | Pulse | 66 | 10/24/2017 4:22 PM | | | | | PDT | | + + + + + | Temperature | 36.5 C (97.7 F) | 03/23/2017 12:03 PM | | | | | PST | | + + + + + | Respiratory Rate | 16 | 10/28/2013 1:06 PM | | | | | PDT | | + + + + + | Oxygen Saturation | 96% | 10/24/2017 4:22 PM | | | | | PDT | | + + + + + | Inhaled Oxygen | - | - | | | Concentration | | | | + + + + + | Weight | 112.9 kg (249 lb) | 10/24/2017 4:22 PM | | | | | PDT | | + + + + + | Height | 157.5 cm (5' 2") | 10/24/2017 4:22 PM | | | | | PDT | | + + + + + | Body Mass Index | 45.54 | 10/24/2017 4:22 PM | | | | | PDT | | + + + + + Plan of Treatment + + + + + | Health Maintenance | Due Date | Last Done | Comments | + + + + + | Diabetes | | | | | self-management | 0 | | | | education | | | | + + + + + | Monofilament foot | | | | | exam | 0 | | | + + + + + | Pneumococcal | | | | | vaccination (1 of 1 | 6 | | | | - PPSV23) | | | | + + + + + | Diabetic eye exam | | | | | | 0 | | | + + + + + | Hemoglobin A1c | | 03/23/2017, 06/27/2016 | | | | 8 | | | + + + + + | Medical attention | | 11/27/2016 | | | for nephropathy | 8 | | | + + + + + | Creatinine | | 03/23/2017, 09/16/2014, | | | | 9 | 10/28/2013 | | + + + + + | Influenza (Flu) | | 03/08/2017, 02/23/2012, | | | vaccination (#1) | 9 | 11/04/2009, Additional history | | | | | exists | | + + + + + | Cholesterol | | 03/23/2017, 09/16/2014, | | | screening | 3 | 10/28/2013 | | + + + + + [...] + +------+ | MODA | MODA | xxxxxxxxx | 07/07/19 | [phone] | [address] | PPO | | | [place] | | 12-Pre | 4 | [address] | | | | [place] | | sent | | [place], | | | | | | | | [place] [address] | | +-------+--------+ +--------+ + +------+ + +--------+ +--------+ + + | Guarantor Name | Accoun | Relation to | Date | Phone | Billing Address | | | t Type | Patient | of | | | | | | | | | | + +--------+ +--------+ + + | Rebel Skinner | Person | Self [birth year] | | | al/Fam | | 1961 | [phone] | [place] [address] | | | vicky | | | 3 (Home) | | + +--------+ +--------+ + +
--- OUTSIDE RECORDS SUMMARY | ~2018-12-08 | XMS | Encounter Summary ---
Demographics + + + | Address | [address] | | | [place] [address] | + + + | Home Phone [...] Team Providers + +------+ + | Care School Attendance Secretary Name | Role | Phone | + +------+ + | Sky Solis MD | PCP | | + +------+ + Encounter Details +--------+ + + + + | Date | Type | Department | Care Team | Description | +--------+ + + + + | 11/24/ | Abstract | Cardiology | Tani Soriano MD | | | 2016 | | Preventive at [facility] | [address] | | | | | [address] | [place], [place] | | | | | Mailcode: CH9A | [address] | | | | | [facility] | [phone] | | | | | and [place], | | | | | | [address] | | | | | | [place], [place] | | | | | | [address] | | | | | | [phone] | | | +--------+ + + + [...]
--- OUTSIDE RECORDS SUMMARY | ~2018-12-08 | XMS | Encounter Summary ---
Demographics + + + | Address | [address] | | | [place] [address] | + + + | Home Phone | | + + + | Preferred Language | Unknown | + + + | Marital Status | Single | + + + | Holiness Affiliation | Unknown | + + + [...] Team Providers + +------+ + | Care Jewelry Sorter Name | Role | Phone | + +------+ + | Sky Solis MD | PCP | | + +------+ + Encounter Details +--------+ + + + + | Date | Type | Department | Care Team | Description | +--------+ + + + + | 03/07/ | Abstract | Digestive Health | Clinic, Surgery | | | 2018 | | [place] [facility] [address] | | | | | | [address] | | | | | | Mailcode: [place] | | | | | | [facility] | | | | | | [facility], [address] | | | | | | [place], [place] | | | | | | [address] | | | | | | [phone] | | | +--------+ + + + [...]
--- OUTSIDE RECORDS SUMMARY | ~2018-12-08 | XMS | Encounter Summary ---
Demographics + + + | Address | [address] | | | [place] [address] | + + + | Home Phone | | + + + | Preferred Language | Unknown | + + + | Marital Status | Single | + + + | Episcopalian Affiliation | Unknown | + + + | Race | White | + + + | Ethnic Group | Not or | + + + Author + + + | Author | [facility] | + + + | Organization | [facility] | + + + | Address | Unknown | + + + | Phone | Unavailable | + + + Support + + +---------+ + | Name | Relationship | Address | Phone | + + +---------+ + | Fanny Baez | ECON | Unknown | | + + +---------+ + Care Team Providers + +------+ + | Care President & [employer] Name | Role | Phone | + +------+ + | Sky Solis MD | PCP | | + +------+ + Reason for Visit Office Visit - E/M Services (Routine) +--------+--------+ + + + + | [...] | | | | | INTERNAL | [place], [place] | | | | | lipoprotein( | MEDICINE | [address] | | | | | a) | [address] | Phone: | | | | | Hypothyroidi | [facility] | [phone] | | | | | sm | [address] | Fax: | | | | | Metabolic | [place], | [phone] | | | | | syndrome | [place] [address] | | | | | | Procedures | Phone: | | | | | | [place] EST | [phone] | | | | | | PATIENT | Fax: | | | | | | LEVEL V | [phone] | | +--------+--------+ + + + + Encounter Details +--------+---------+ + + + | Date | Type | Department | Care Team | Description | +--------+---------+ + + + | 03/23/ | Office | Cardiology | Tani Soriano MD | Mixed hyperlipidemia | | 2018 | Visit | Preventive at [facility] | [address] | (Primary Dx); | | | | [address] | [place], [place] | Controlled type 2 | | | | Mailcode: [facility] | [address] | diabetes mellitus | | | | [facility] | [phone] | without | | | | and Healing, | | complication, | | | | Building [address] | | without long-term | | | | [place], [place] | | current use of | | | | [address] | | insulin (HCC); | | | | [phone] | | Acquired | | | | | | hypothyroidism; | | | | | | Metabolic syndrome; | | | | | | Myalgia | +--------+---------+ + + + Social History [...] + + + | Blood Pressure | 130/62 | 03/23/2017 12:03 PM | | | | | PST | | + + + + + | Pulse | 66 | 03/23/2017 12:03 PM | | | | | PST | | + + + + + | Temperature | 36.5 C (97.7 F) | 03/23/2017 12:03 PM | | | | | PST | | + + + + + | Respiratory Rate | - | - | | + + + + + | Oxygen Saturation | 97% | 03/23/2017 12:03 PM | | | | | PST | | + + + + + | Inhaled Oxygen | - | - | | | Concentration | | | | + + + + + | Weight | 115.4 kg (254 lb 6.4 | 03/23/2017 12:03 PM | | | | oz) | PST | | + + + + + | Height | 156.8 cm (5' 1.75") | 03/23/2017 12:03 PM | | | | | PST | | + + + + + | Body Mass Index | 46.91 | 03/23/2017 12:03 PM | | | | | PST | | + + + + + documented in this encounter Progress Notes Tani Soriano MD - 03/23/2017 12:00 PM PSTFormatting of this note might be different from yvette goddard. [facility]ive [facility] Subjective Rebel Skinner is a 56 y.o. 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 She had izabel cristofer sleeve surgery 10/03/16 in [facility] on October 03. She is taking supplemental vi tamin B12, calcium and a multivitamin, but she stopped taking vitamin D. She has been havin g trouble with gout, with a most recent attack last month while taking colchicine and allopu rinol. She is being referred to a pre algebra teacher in [place] to clarify whether she actua lly has gout and to guide treatment. Exercise: Pool walking and water weights for 1 hour a bout 2 days weekly. She has no chest pain, chest pressure, chest discomfort, or exertional dyspnea. She has had intermittent numbness in her left arm extending down to her thumb. Georgie warren will see a chiropractor this afternoon for her neck. She has been having myalgias of her arms, legs, and back beginning about 3 weeks ago. She stopped taking colchicine about 3 wee ks ago. She resumed treatment with lovastatin in late November. She had lab testing yesterd ay: CBC, uric acid. Her PCP, Dr. Solis is retiring, she she will start seeing Dr. Feng n ext month. 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 Metabolic syndrome CARLENE (obstructive sleep apnea) - sleep study in [place] AHI of 30 per hour. Allergies Allergen Reactions Penicillin G Hives and Dyspnea Sulfa (Sulfonamide Antibiotics) Hives Current Medications Patient is Taking: Allopurinol 300 Mg Tablet - Take 300 mg by mouth once daily. Indications: prevention of acute gout attack Desvenlafaxine Succinate Er 50 Mg Tablet,extended Release 24 Hr - Take 50 mg by mouth o nce daily. Liothyronine 5 Mcg Tablet - Take 7.5 mcg by mouth once daily. Losartan 100 Mg Tablet - Take 100 mg by mouth once daily. Indications: hypertension Lovastatin 20 Mg Tablet - Take 1 tablet by mouth once daily in the evening. Administer with evening meal. Metoprolol Tartrate 50 Mg Tablet - Take 50 mg by mouth two times daily. Mometasone Furoate (bulk) Misc - Apply to affected area. Indications: aplly 1% cream t opically Multivitamin With Minerals Tablet - Take 1 tablet by mouth once daily. Omeprazole 20 Mg Capsule,delayed Release - Take 20 mg by mouth once daily. Vitamin B Complex Oral - Take 1 tablet by mouth two times daily. Calcium Citrate Oral - Take 1 tablet by mouth three times daily. Physical Exam BP 130/62 | Pulse 66 | Temp (Src) 36.5 C (97.7 F) (Oral) | Ht 1.568 m (5' 1.75") | Wt 1 15.4 kg (254 lb 6.4 oz) | SpO2 97% | BMI 46.91 kg/(m^2) Body mass index is 46.91 kg/m. Alert, NAD, mood WNL Skin mild acanthosis nigricans Thyroid 20-25 g. No palpable nodules Cardiac-RRR, no murmur/S3/S4/rubs. No JVD. Pulses 2+. No bruits Abdomen: No hepatosplenomegaly, masses, or tenderness Extremities: trace pretibial edema. Wt Readings from Last 10 Encounters: 03/23/17 115.4 kg (254 lb 6.4 oz) 02/07/17 116.6 kg (257 lb) 11/28/16 127 kg (280 lb) 06/27/16 151.5 kg (334 lb) 09/22/15 145.8 kg (321 lb 6.4 oz) 05/19/15 143.8 kg (317 lb) 05/19/15 143.8 kg (317 lb) 05/19/15 143.8 kg (317 lb) 01/13/15 142.5 kg (314 lb 1.6 oz) 01/12/15 142.4 kg (314 lb) Labs Component Latest Ref Rng 10/28/2013 [...] ng/mL 33.1 Assessment Rebel Skinner is a 56 y.o. female who has medical problems noted above. 1. Dyslipidemia: High Lp(a), but mostly acceptable LDL-C 80, HDL-C 49 and mildly elevated TG 173 in the past. An LDL-C concentration < 70 mg/dl may be preferable. We need to see he r current results. 2. Hypothyroidism: She has been euthyroid. Will recheck now 3. HTN: BP is normal today 4. Metabolic syndrome: BMI was up to 63 kg/m2, but she has already lost 74 lbs since under going gastric sleeve surgery in [place] in September 2016. She needs to resume taking vitamin D . She met with our dietitian at her last visit. 5. ACRLENE: Prior sleep study in [place] apparently identified an AHI of 30 per hour. This should be improving in response to weight loss 6. Vitamin D deficiency: She needs to resume taking supplemental vit D 7. Myalgias: Unclear etiology. She tolerated the statin well in the past for a long time. Will check her CK concentration. I asked her continue taking the lovastatin for now. 8. Grief over losing her son 2 years ago. She is doing fairly well. Plan Check labs today Resume taking vitamin D 2000 units daily. Increase the dose as needed Meet with our dietitian regarding meal planning - she received very limited instruction fro m the surgeon in [place] and most of the communication was in Nepali, which she does not spe ak. Continue F/U with her PCP in [facility] 4-5 months documented in this encoun ter Plan of Treatment Not on filedocumented as of this encounter Results TSH (03/23/2017 1:28 PM PST) + +-------+ + + + | Component | Value | Ref Range | Performed | Pathologist | | | | | At | Signature | + +-------+ + + + | TSH | 1.75 | 0.50 - 5.07 | [facility] | | | | | mIU/L | LABORATORY | | | | | | SERVICES, | | | | | | CORE | | + +-------+ + + + + + | Specimen | + + | Blood - Blood | | (substance) | + + + + + | Narrative | Performed At | + + + | TSH reference ranges are influenced by a variety of environmental | [facility] | | influences, age, gender and ethnicity. The supplied reference limits | LABORATORY | | are based on published values utilizing a similar TSH assay, and | LISA, CORE | | should be interpreted with caution. | | + + + + + + + + | Performing | Address | City/State/Zipcode | Phone Number | | Organization | | | | + + + + + | [facility] | [address] | [place] [address] | | | NELDA GONZALEZ | [address] | | | + + + + + RHEUMATOID FACTOR, SERUM (03/23/2017 1:28 PM PST) + +-------+ + + + | Component | Value | Ref Range | Performed | Pathologist | | | | | At | Signature | + +-------+ + + + | RHEUMATOID | <10 | <=14 IU/mL | [facility] | | | FACTOR | | | [facility] | | | | | | [place] | | + +-------+ + + + + + | Specimen | + + | Blood - Blood | | (substance) | + + + + + + + | Performing | Address | City/State/Zipcode | Phone Number | | Organization | | | | + + + + + | [facility] | [address] | [place] [address] | | | [place] | | | | + + + + + CK, PLASMA (03/23/2017 1:28 PM PST) + +--------+ + + + | Component | Value | Ref Range | Performed | Pathologist | | | | | At | Signature | + +--------+ + + + | CK | 36 (L) | 38 - 234 U/L | [facility] | | | | | | LABORATORY | | | | | | SERVICES, | | | | | | CORE | | + +--------+ + + + + + | Specimen | + + | Blood - Blood | | (substance) | + + + + + + + | Performing | Address | City/State/Zipcode | Phone Number | | Organization | | | | + + + + + | [facility] | [address] | [place] [address] | | | SERVICES, CORE | [address] | | | + + + + + LIPID LAB - C-REACTIVE PROTEIN, HIGH SENSITIVITY (03/23/2017 1:28 PM PST) + + + + + + | Component | Value | Ref Range | Performed | Pathologist | | | | | At | Signature | + + + + + + | C-REACTIVE | 16.62 (H) | <=2.00 mg/L | [facility] | | | PRTN, HIGH | | | LABORATORY | | | SENS - | | | SERVICES, | | | LIPID LAB | | | LIPID | | + + + + + + + + | Specimen | + + | Blood - Blood | | (substance) | + + + + + + + | Performing | Address | City/State/Zipcode | Phone Number | | Organization | | | | + + + + + | [facility] | [address] | [place], [place] | | | SERVICES, LIPID | [address] | [id number] | | + + + + + LIPID LAB - LIPID PROFILE - PLASMA LIPIDS, HDL AND LDL (03/23/2017 1:28 PM PST) + +---------+ + + + | Component | Value | Ref Range | Performed | Pathologist | | | | | At | Signature | + +---------+ + + + | TOTAL | 179 | <220 mg/dl | [facility] | | | CHOLESTEROL | | | LABORATORY | | | - LIPID | | | SERVICES, | | | LAB | | | LIPID | | + +---------+ + + + | VLDL | 24 | <=31 mg/dl | [facility] | | | CHOLESTEROL | | | LABORATORY | | | , | | | SERVICES, | | | CALCULATED | | | LIPID | | | - LIPID LAB | | | | | + +---------+ + + + | LDL, | 103 (H) | <100 mg/dl | [facility] | | | CHOLESTEROL | | | LABORATORY | | | - LIPID | | | SERVICES, | | | LAB | | | LIPID | | + +---------+ + + + | HDL, | 52 | >50 mg/dl | [facility] | | | CHOLESTEROL | | | LABORATORY | | | - LIPID | | | SERVICES, | | | LAB | | | LIPID | | + +---------+ + + + | TOTAL | 121 | <150 mg/dl | [facility] | | | TRIGLYCERID | | | LABORATORY | | | E - LIPID | | | SERVICES, | | | LAB | | | LIPID | | + +---------+ + + + | NON-HDL | 127 | <=130 mg/dL | [facility] | | | CHOLESTEROL | | | LABORATORY | | | (LIPID | | | SERVICES, | | | LAB) | | | LIPID | | + +---------+ + + + + + | Specimen | + + | Blood - Blood | | (substance) | + + + + + + + | Performing | Address | City/State/Zipcode | Phone Number | | Organization | | | | + + + + + | [facility] | [address] | [place], [place] | | | SERVICES, LIPID | [address] | [id number] | | + + + + + HEMOGLOBIN A1C, BLOOD (03/23/2017 1:28 PM PST) + + + + + + | Component | Value | Ref Range | Performed | Pathologist | | | | | At | Signature | + + + + + + | HEMOGLOBIN | 6.0 (H)Comment: Hgb A1C | <5.7 % | [facility] | | | A1C | Interpretive | | LABORATORY | | | | Information: | | SERVICES, | | | | <5.7% - Normal | | SPECIAL IMM | | | | 5.7-6.4% - Consistent | | + COAG | | | | with pre-diabetes | | | | | | >6.4% - Consistent | | | | | | with diabetes | | | | | | | | | | + + + + + + + + | Specimen | + + | Blood - Blood | | (substance) | + + + + + | Narrative | Performed At | + + + | Alternate forms of testing such as fructosamine should be | [facility] | | considered for monitoring shelter glycemic control in patients with: | LABORATORY | | Increased red cell turnover, certain hemoglobinopathies (e.g., HbS, | SERVICES, | | HbE, HbC and thalassemia syndromes), anemias, blood loss, chronic | SPECIAL IMM + | | liver disease and hemochromatosis (artefactually low HbA1c); iron | [facility] | | deficiency anemia (artefactually high HbA1c due to enhanced glycation | | | of hemoglobin). | | + + + + + + + + | Performing | Address | City/State/Zipcode | Phone Number | | Organization | | | | + + + + + | [facility] | [address] | [place] [address] | | | SERVICES, SPECIAL | [address] | | | | IMM + [place] | | | | + + + + + COMPLETE METABOLIC SET (NA,K,CL,CO2,BUN,CREAT,GLUC,CA,AST,ALT,BILI TOTAL,ALK PHOS,ALB,PROT TOTAL) (03/23/2017 1:28 PM PST) + +---------+ + + + | Component | Value | Ref Range | Performed | Pathologist | | | | | At | Signature | + +---------+ + + + | GLUCOSE, | 88 | 70 - 99 mg/dL | [facility] | | | PLASMA | | | LABORATORY | | | (LAB) | | | SERVICES, | | | | | | CORE | | + +---------+ + + + | BUN, PLASMA | 25 (H) | 6 - 20 mg/dL | [facility] | | | (LAB) | | | LABORATORY | | | | | | SERVICES, | | | | | | CORE | | + +---------+ + + + | CREATININE | 0.67 | 0.60 - 1.10 | [facility] | | | PLASMA | | mg/dL | LABORATORY | | | (LAB) | | | SERVICES, | | | | | | CORE | | + +---------+ + + + | EGFR | >60 | >60 mL/min | [facility] | | | - | | | LABORATORY | | | BAHRAINI | | | SERVICES, | | | | | | CORE | | + +---------+ + + + | EGFR NON | >60 | >60 mL/min | [facility] | | | -[facility] | | | LABORATORY | | | RICAN | | | SERVICES, | | | | | | CORE | | + +---------+ + + + | SODIUM, | 138 | 136 - 145 | [facility] | | | PLASMA | | mmol/L | LABORATORY | | | (LAB) | | | SERVICES, | | | | | | CORE | | + +---------+ + + + | POTASSIUM, | 4.0 | 3.4 - 5.0 | [facility] | | | PLASMA | | mmol/L | LABORATORY | | | (LAB) | | | SERVICES, | | | | | | CORE | | + +---------+ + + + | CHLORIDE, | 103 | 97 - 108 mmol/L | [facility] | | | PLASMA | | | LABORATORY | | | (LAB) | | | SERVICES, | | | | | | CORE | | + +---------+ + + + | TOTAL CO2, | 30 | 21 - 32 mmol/L | [facility] | | | PLASMA | | | LABORATORY | | | (LAB) | | | SERVICES, | | | | | | CORE | | + +---------+ + + + | CALCIUM, | 9.2 | 8.6 - 10.2 | [facility] | | | PLASMA | | mg/dL | LABORATORY | | | (LAB) | | | SERVICES, | | | | | | CORE | | + +---------+ + + + | CALCIUM(ALB | 9.4 | 8.6 - 10.2 | [facility] | | | CORRECTED) | | mg/dL | LABORATORY | | | | | | SERVICES, | | | | | | CORE | | + +---------+ + + + | BILIRUBIN | 0.5 | 0.3 - 1.2 mg/dL | [facility] | | | TOTAL | | | LABORATORY | | | | | | SERVICES, | | | | | | CORE | | + +---------+ + + + | TOTAL | 8.1 | 6.4 - 8.2 g/dL | [facility] [...] + + + | ALK PHOS | 117 (H) | 42 - 98 U/L | [facility] | | | | | | LABORATORY | | | | | | SERVICES, | | | | | | CORE | | + +---------+ + + + | AST(SGOT) | 47 (H) | <=41 U/L | [facility] | | | | | | LABORATORY | | | | | | SERVICES, | | | | | | CORE | | + +---------+ + + + | ALT (SGPT) | 52 | <=60 U/L | [facility] | | | | | | LABORATORY | | | | | | SERVICES, | | | | | | CORE | | + +---------+ + + + | ANION GAP | 5 | 4 - 11 mmol/L | [facility] | | | | | | LABORATORY | | | | | | SERVICES, | | | | | | CORE | | + +---------+ + + + | ANION | 5 | 4 - 11 mmol/L | [facility] [...] + + | Blood - Blood | | (substance) | + + + + + | Narrative | Performed At | + + + | Adult glucose reference range change effective 7-12-17. GFR is | [facility] | | estimated using the MDRD equation recommended by the National Kidney | LABORATORY | | Disease Education Program. Estimated GFR Interpretive Information: | SERVICES, CORE | | <60 mL/min/1.73 sq m Chronic Kidney Disease | | | <15 mL/min/1.73 sq m Kidney Failure Estimated | | | GFR greater that 60 mL/min/1.73 sq m is of limited clinical value. | | | The MDRD equation is not valid in the following situations: - | | | Patients under 18 years of age - Severe malnutrition or obesity - | | | Vegetarian diet - Rapidly changing kidney function | | + + + + + + + + | Performing | Address | City/State/Zipcode | Phone Number | | Organization | | | | + + + + + | [facility] | [address] | [place] [address] | | | SERVICES, CORE | [address] | | | + + + + + documented in this encounter Visit Diagnoses + + | Diagnosis | + + | Mixed hyperlipidemia - Primary | + + | Controlled type 2 diabetes mellitus without complication, without long-term current | | use of insulin (HCC) | + + | Acquired hypothyroidism Unspecified hypothyroidism | + + | Metabolic syndrome Dysmetabolic Syndrome X | + + | Myalgia Mylagia and myositis, unspecified | + + documented in this encounter
--- OUTSIDE RECORDS SUMMARY | ~2018-12-08 | XMS | Encounter Summary ---
Demographics + + + | Address | [address] | | | [place] [address] | + + + | Home Phone | | + + + | Preferred Language | Unknown | + + + | Marital Status | Single | + + + | Scientology Affiliation | Unknown | + + + [...] Team Providers + +------+ + | Care Floorhand Name | Role | Phone | + [...] | | | | | INTERNAL | [place], [place] | | | | | lipoprotein( | MEDICINE | [address] | | | | | a) | [address] | Phone: | | | | | Hypothyroidi | [facility] | [phone] | | | | | sm | [address] | Fax: | | | | | Metabolic | [place], | [phone] | | | | | syndrome | [place] [address] | | | | | | Procedures | Phone: | | | | | | CONSULT TO | [phone] | | | | | | CARDIOLOGY | Fax: | | | | | | | [phone] | | +--------+--------+ + + + + Encounter Details +--------+---------+ + + + | Date | Type | Department | Care Team | Description | +--------+---------+ + + + | 05/18/ | Office | Cardiology | Tani Soriano MD | Hyperlipidemia, | | 2016 | Visit | Preventive at [facility] | [address] | unspecified | | | | [address] | [place], [place] | hyperlipidemia type | | | | Mailcode: [id number] | [id number] | (Primary Dx); | | | | [place] [facility] | [phone] | Metabolic syndrome; | | | | and Healing, | | Other specified | | | | [address] | | hypothyroidism; CARLENE | | | | [place], [place] | | (obstructive sleep | | | | [address] | | apnea) - sleep study | | | | [phone] | | in [place] AHI of | | | | | [...] AM. She had the sleep study in [place] and apparently was found to have an AHI of 30 per hour . CPAP has been ordered, but she is still trying to appeal a blockade by her insurance plan . 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 Metabolic syndrome CARLENE (obstructive sleep apnea) - sleep study in [place] AHI of 30 per hour. Allergies Allergen [...] meet with our dietitian today. Treatment of CARLEEN is likely to facilitate weight loss. Stress [...] (obstructive sleep apnea) - sleep study in [place] AHI of 30 per hour. | | Obstructive sleep apnea (adult) (pediatric) | + + documented in this encounter
--- OUTSIDE RECORDS SUMMARY | ~2018-12-08 | XMS | Encounter Summary ---
Demographics + + + | Address | [address] | | | [place] [address] | + + + | Home Phone [...] Author + + + | Author | [facility] | + + + | Organization | [facility] | + + + | Address | Unknown | + + + | Phone | Unavailable | + + + Support + + +---------+ + | Name | Relationship | Address | Phone | + + +---------+ + | Fanny Baez | ECON | Unknown | | + + +---------+ + Care Team Providers + +------+ + | Care Manager Customs Name | Role | Phone | + +------+ + | Sky Solis MD | PCP | | + +------+ + Encounter Details +--------+ + + + + | Date | Type | Department | Care Team | Description | +--------+ + + + + | 06/16/ | [facility] | Sleep Disorder | Fatmata Travis MD | RE: New Appointment | | 2016 | Encounter | [facility] | [address] | | | | | [facility] [place] | [place], | | | | | [address] | [place] [address] | | | | | Jen Munoz Mailcode: | [phone] | | | | | [id number] [facility] | | | | | | [facility] | | | | | | [address] [place], [place] | | | | | | [address] | | | | | | [phone] | | | +--------+ + + + [...]
--- OUTSIDE RECORDS SUMMARY | ~2018-12-08 | XMS | Encounter Summary ---
Demographics + + + | Address | [address] | | | [place] [address] | + + + | Home Phone [...] Team Providers + +------+ + | Care Rental Counter Clerk Name | Role | Phone | + [...] | | | | | INTERNAL | [place], [place] | | | | | lipoprotein( | MEDICINE | [address] | | | | | a) | [address] | Phone: | | | | | Hypothyroidi | [facility] | [phone] | | | | | sm | STONE [address] | Fax: | | | | | Metabolic | [place], | [phone] | | | | | syndrome | [place] [address] | | | | | | Procedures | Phone: | | | | | | AL EST | [phone] | | | | | | PATIENT | Fax: | | | | | | LEVEL V | [phone] | | +--------+--------+ + + + + Encounter Details +--------+---------+ + + + | Date | Type | Department | Care Team | Description | +--------+---------+ + + + | 03/23/ | Office | Cardiology | Tani Soriano MD | Mixed hyperlipidemia | | 2018 | Visit | Preventive at [facility] | [address] | (Primary Dx); | | | | [address] | [place], [place] | Controlled type 2 | | | | Mailcode: [facility] | [address] | diabetes mellitus | | | | [facility] | [phone] | without | | | | and Healing, | | complication, | | | | Building [address] | | without long-term | | | | [place], [place] | | current use of | | | | [address] | | insulin (HCC); | | | | [phone] | | Acquired | | | | [...] had izabel cristofer sleeve surgery 10/03/16 in [facility] on October 03. She is taking supplemental vi tamin B12, calcium and a multivitamin, but she stopped taking vitamin D. She has been havin g trouble with gout, with a most recent attack last month while taking colchicine and allopu rinol. She is being referred to a hone operator in [place] to clarify whether she actua lly has [...] (obstructive sleep apnea) - sleep study in [place] AHI of 30 per hour. Allergies Allergen [...] since under going gastric sleeve surgery in [place] in September 2016. She needs to resume taking vitamin D . She met with our dietitian at her last visit. 5. CARLENE: Prior sleep study in [place] apparently identified an AHI of 30 per [...] limited instruction fro m the surgeon in [place] and most of the communication was in Malay, which she does not spe ak. Continue F/U with her PCP in [facility] 4-5 months documented in this encoun ter [...] | + + + + + | [facility] | [address] | [place] [address] | | | NELDA GONZALEZ | ILIR [...] + | [facility] - | [address] | [place] [address] | | | [place] | | | [...] LABORATORY | [address] | [place] [address] | | | SERVICES, CORE | PARK [...] | + + + + + | [facility] | [address] | [place], [place] | | | SERVICES, LIPID | [address] | [address] | | + + + + + [...] | + + + + + | [facility] | [address] | [place], [place] | | | SERVICES, LIPID | [address] | [address] | | + + + + + HEMOGLOBIN A1C, BLOOD (03/23/2017 1:28 PM PST) + + + + + + | Component | Value | Ref Range | Performed | Pathologist | | | | | At | Signature | + + + + + + | HEMOGLOBIN | 6.0 (H)Comment: Hgb A1C | <5.7 % | [facility] | | | A1C | Interpretive | [...] | [facility] | | considered for monitoring group home glycemic control in patients with: | LABORATORY [...] | + + + + + | [facility] | [address] | [place] [address] | | | SERVICES, SPECIAL | PARK [...] | | | LABORATORY | | | [place] | | | SERVICES, | | | [...] BRUNER | [address] | [place] [address] | | | SERVICES, CORE | PARK [...]
--- OUTSIDE RECORDS SUMMARY | ~2018-12-08 | XMS | Encounter Summary ---
Demographics + + + | Address | [address] | | | [place] [address] | + + + | Home Phone | | + + + | Preferred Language | Unknown | + + + | Marital Status | Single | + + + | Restorationism Affiliation | Unknown | + + + | Race | White | + + + | Ethnic Group | Not or | + + + Author + + + | Author | [facility] | + + + | Organization | [facility] | + + + | Address | Unknown | + + + | Phone | Unavailable | + + + Support + + +---------+ + | Name | Relationship | Address | Phone | + + +---------+ + | Fanny Baez | ECON | Unknown | | + + +---------+ + Care Team Providers + +------+ + | Care Affiliate Manager Name | Role | Phone | + +------+ + | Sky Solis MD | PCP | | + +------+ + Encounter Details +--------+ + + + + | Date | Type | Department | Care Team | Description | +--------+ + + + + | 02/18/ | MyChart | Cardiology | Tani Soriano MD | RE: An Appointment | | 2014 | Encounter | Preventive at [facility] | [address] | | | | | [address] | [place], [place] | | | | | Mailcode: CH9A | [address] | | | | | [facility] | [phone] | | | | | and Healing, | | | | | | [address] | | | | | | [place], [place] | | | | | | [address] | | | | | | [phone] | | | +--------+ + + + [...]
--- OUTSIDE RECORDS SUMMARY | ~2018-12-08 | XMS | Encounter Summary ---
Demographics + + + | Address | [address] | | | [place] [address] | + + + | Home Phone | | + + + | Preferred Language | Unknown | + + + | Marital Status | Single | + + + | Yazdanism Affiliation | Unknown | + + + | Race | White | + + + | Ethnic Group | Not or | + + + Author + + + | Author | [facility] | + + + | Organization | [facility] | + + + | Address | Unknown | + + + | Phone | Unavailable | + + + Support + + +---------+ + | Name | Relationship | Address | Phone | + + +---------+ + | Fanny Baez | ECON | Unknown | | + + +---------+ + Care Team Providers + +------+ + | Care Abrasive Band Winder Name | Role | Phone | + [...] | 2016 | Encounter | [facility] at [place] | [address] | | | | | [facility] [place] | [place], | | | | | [address] | [place] [address] | | | | | Jen Munoz Mailcode: | [phone] | | | | | [address] [place] | | | | | | [facility] | | | | | | [address] [place], [place] | | | | | | [address] | | | | | | [phone] | | | +--------+ + + + [...]
--- OUTSIDE RECORDS SUMMARY | ~2018-12-08 | XMS | Encounter Summary ---
Demographics + + + | Address | [address] | | | [place] [address] | + + + | Home Phone | | + + + | Preferred Language | Unknown | + + + | Marital Status | Single | + + + | Adventist Affiliation | Unknown | + + + [...] Providers + +------+ + | Care Supervisor Extrusion Name | Role | Phone | + [...] 2019 | Encounter | at [facility] [address] | | reschedule your | | | | Daron Luna Mailcode: | | Cardiology | | | | [address] [place] [address] for | | appointment | | | | Health and Healing, | | | | | | | | | | | | [place], [place] | | | | | | [address] | | | | | | [phone] | | | +--------+ + + + [...]
--- OUTSIDE RECORDS SUMMARY | ~2018-12-08 | XMS | Encounter Summary ---
Demographics + + + | Address | [address] | | | [place] [address] | + + + | Home Phone | | + + + | Preferred Language | Unknown | + + + | Marital Status | Single | + + + | Church Affiliation | Unknown | + + + | Race | White | + + + | Ethnic Group | Not or | + + + Author + + + | Author | [facility] | + + + | Organization | [facility] | + + + | Address | Unknown | + + + | Phone | Unavailable | + + + Support + + +---------+ + | Name | Relationship | Address | Phone | + + +---------+ + | Fanny Baez | ECON | Unknown | | + + +---------+ + Care Team Providers + +------+ + | Care Rotary Surface Grinder Name | Role | Phone | + [...] | | | | | INTERNAL | [place], [place] | | | | | lipoprotein( | MEDICINE | [address] | | | | | a) | [address] | Phone: | | | | | Hypothyroidi | [facility] | [phone] | | | | | sm | STONE [address] | Fax: | | | | | Metabolic | [place], | [phone] | | | | | syndrome | [place] [address] | | | | | | Procedures | Phone: | | | | | | CONSULT TO | [phone] | | | | | | CARDIOLOGY | Fax: | | | | | | | [phone] | | +--------+--------+ + + + + Encounter Details +--------+---------+ + + + | Date | Type | Department | Care Team | Description | +--------+---------+ + + + | 06/27/ | Office | Cardiology | Tani Soriano MD | Hyperlipidemia, | | 2017 | Visit | Preventive at [facility] | [address] | unspecified | | | | [address] | [place], [place] | hyperlipidemia type | | | | Mailcode: CH9A | [address] | (Primary Dx); Other | | | | [facility] | [phone] | specified | | | | and Healing, | | hypothyroidism; | | | | [address] | | Metabolic syndrome | | | | [place], [place] | | | | | | [address] | | | | | | [phone] | | | +--------+---------+ + + + [...] + + + | Blood Pressure | 136/61 | 06/27/2016 1:44 PM | | | | | PDT | | + + + + + | Pulse | 88 | 06/27/2016 1:44 PM | | | | | PDT | | + + + + + | Temperature | - | - | | + + + + + | Respiratory Rate | - | - | | + + + + + | Oxygen Saturation | 95% | 06/27/2016 1:44 PM | | | | | PDT | | + + + + + | Inhaled Oxygen | - | - | | | Concentration | | | | + + + + + | Weight | 151.5 kg (334 lb) | 06/27/2016 1:44 PM | | | | | PDT | | + + + + + | Height | 154.9 cm (5' 1") | 06/27/2016 1:44 PM | | | | | PDT | | + + + + + | Body Mass Index | 63.11 | 06/27/2016 1:44 PM | | | | | PDT | | + + + + + documented in this encounter Progress Notes Tani Soriano MD - 06/27/2016 1:45 PM PDTFormatting of this note might be different from [facility] original. She went to [place] for a couple of weeks and made dramatic dietary changes (e.g. no soda, sugar avoidance, etc.). Unfortunately, she injured her knee , which apparently was an aggr avation of 3 injuries sustained during the Winter falling on ice, so she has been having jairo n for 2-3 months. Her orthopedist thinks she has a torn meniscus. She has been going to [facility] pool 3 times weekly after having a steroid injection 2 weeks ago. She had a UTI a few wee ks ago, treated with antibiotics. She started seeing a counselor to help her with her son, Curtis's, 18 months ago that aggravated excess eating and weight gain. Her arms stopped aching and were no longer painful to touch after terminating use of artificial sweeteners (p rior 3 packets daily + soda). Wt Readings from Last 10 Encounters: 06/27/16 151.5 kg (334 lb) 09/22/15 145.8 kg (321 lb 6.4 oz) 05/19/15 143.8 kg (317 lb) 05/19/15 143.8 kg (317 lb) 05/19/15 143.8 kg (317 lb) 01/13/15 142.5 kg (314 lb 1.6 oz) 01/12/15 142.4 kg (314 lb) 09/16/14 141.7 kg (312 lb 4.8 oz) 09/16/14 141.7 kg (312 lb 4.8 oz) 05/12/14 137.8 kg (303 lb 12.8 oz) P Check HgbA1c and ~ 3 hours PP glucose today to F/U on fasting glucose 120 mg/dl about 2 mon ths ago. She is still interested in having bariatric surgery, but her insurance [facility] November docum ented in this encounter Plan of Treatment Not on filedocumented as of this encounter Results GLUCOSE, PLASMA (06/27/2016 3:00 PM PDT) + +---------+ + + + | Component | Value | Ref Range | Performed | Pathologist | | | | | At | Signature | + +---------+ + + + | GLUCOSE, | 116 (H) | 60 - 99 mg/dL | [facility] [...] Performed At | + + + | About 3 hours postprandially | [facility] | | | LABORATORY | | | SERVICES, CORE | + + + + + + + + | Performing | Address | City/State/Zipcode | Phone Number | | Organization | | | | + + + + + | [facility] | [address] | [place] [address] | | | SERVICES, CORE | [address] | | | + + + + + HEMOGLOBIN A1C, BLOOD (06/27/2016 3:00 PM PDT) + + + + + + | Component | Value | Ref Range | Performed | Pathologist | | | | | At | Signature | + + + + + + | HEMOGLOBIN | 7.0 (H)Comment: Hgb A1C | <5.7 % | [facility] | | | A1C | Interpretive | [...] | Alternate forms of testing such as glycated serum protein or | [facility] | | glycated albumin should be considered for monitoring jira developer | LABORATORY | | glycemic control in patients with: Increased red cell turnover, | SERVICES, | | certain hemoglobinopathies (e.g., HbS, HbE, HbC and thalassemia | SPECIAL IMM + | | syndromes), anemias, blood loss, chronic liver disease and | [facility] | | hemochromatosis (artefactually low HbA1c); iron deficiency anemia | | | (artefactually high HbA1c due to enhanced glycation of hemoglobin). | | | | | + + + + + + + + | Performing | Address | City/State/Zipcode | Phone Number | | Organization | | | | + + + + + | [facility] | [address] | [place] [address] | | | SERVICES, SPECIAL | [address] | | | | IMM + [place] | | | | + + + + + documented in this encounter Visit Diagnoses + + | Diagnosis | + + | Hyperlipidemia, unspecified hyperlipidemia type - Primary | + + | Other specified hypothyroidism | + + | Metabolic syndrome Dysmetabolic Syndrome X | + + documented in this encounter
--- OUTSIDE RECORDS SUMMARY | ~2018-12-08 | XMS | Encounter Summary ---
Demographics + + + | Address | [address] | | | [place] [address] | + + + | Home Phone | | + + + | Preferred Language | Unknown | + + + | Marital Status | Single | + + + | Congregation Affiliation | Unknown | + + + [...] Team Providers + +------+ + | Care Hawk Missile System Crewmember Name | Role | Phone | + [...] | 2015 | on | [facility] | [address] | | | | | [facility] Center | Jen Munoz [place], | | | | | [address] | [place] [address] | | | | | Jen Munoz Mailcode: | [phone] | | | | | [address] [place] | | | | | | [facility] | | | | | | [id number] [place], [place] | | | | | | [address] | | | | | | [phone] | | | +--------+ + + + [...]
--- OUTSIDE RECORDS SUMMARY | ~2018-12-08 | XMS | Encounter Summary ---
Demographics + + + | Address | [address] | | | [place] [address] | + + + | Home Phone | | + + + | Preferred Language | Unknown | + + + | Marital Status | Single | + + + | Druze Affiliation | Unknown | + + + | Race | White | + + + | Ethnic Group | Not or | + + + Author + + + | Author | [facility] | + + + | Organization | [facility] | + + + | Address | Unknown | + + + | Phone | Unavailable | + + + Support + + +---------+ + | Name | Relationship | Address | Phone | + + +---------+ + | Fanny Baez | ECON | Unknown | | + + +---------+ + Care Team Providers + +------+ + | Care Skoog Machine Operator Name | Role | Phone | + +------+ + | Sky Solis MD | PCP | | + +------+ + Encounter Details +--------+------+ + + + | Date | Type | Department | Care Team | Description | +--------+------+ + + + | 10/28/ | Lab | Laboratory, | | Hypothyroidism; | | 2013 | | Specimen Collection | | Vitamin D | | | | at [facility] [address] | | deficiency; Morbid | | | | [address] [facility] | | obesity with BMI of | | | | [address] [place], | | 50.0-59.9, adult | | | | [place] [address] | | ([facility]); | | | | [phone] | | Hyperlipidemia | +--------+------+ + + + Social History [...] | + +--------+ + + + | CBC AND AUTO DIFF | Routin | 10/28/2013 | Morbid obesity | Results for this | | | e | 3:18 PM | with BMI of | procedure are in the | | | | PDT | 50.0-59.9, adult | results section. | | | | | (HCC) | | + +--------+ + + + | LIPOPROTEIN (A), | Routin | 10/28/2013 | Hyperlipidemia | Results for this | | SERUM | e | 3:18 PM | | procedure are in the | | | | PDT | | results section. | + +--------+ + + + | CBC, WITH | Routin | 10/28/2013 | Morbid obesity | Results for this | | DIFFERENTIAL | e | 3:18 PM | with BMI of | procedure are in the | | | | PDT | 50.0-59.9, adult | results section. | | | | | (HCC) | | + +--------+ + + + | VITAMIN D, | Routin | 10/28/2013 | Vitamin D | Results for this | | 25-HYDROXY, SERUM | e | 3:18 PM | deficiency | procedure are in the | | | | PDT | | results section. | + +--------+ + + + | COMPLETE METABOLIC | Routin | 10/28/2013 | Morbid obesity | Results for this | | SET | e | 3:18 PM | with BMI of | procedure are in the | | (NA,K,CL,CO2,BUN,CRE | | PDT | 50.0-59.9, adult | results section. | | AT,GLUC,CA,AST,ALT,B | | | (HCC) | | | IGGY TOTAL,ALK | | | | | | PHOS,ALB,PROT TOTAL) | | | | | + +--------+ + + + | SEDIMENTATION RATE | Routin | 10/28/2013 | Morbid obesity | Results for this | | | e | 3:18 PM | with BMI of | procedure are in the | | | | PDT | 50.0-59.9, adult | results section. | | | | | (HCC) | | | | | | Hypothyroidism | | + +--------+ + + + | FREE T4 | Routin | 10/28/2013 | Hypothyroidism | Results for this | | | e | 3:18 PM | | procedure are in the | | | | PDT | | results section. | + +--------+ + + + | TSH | Routin | 10/28/2013 | Hypothyroidism | Results for this | | | e | 3:18 PM | | procedure are in the | | | | PDT | | results section. | + +--------+ + + + | LIPID SET (TRIG, T | Routin | 10/28/2013 | Hyperlipidemia | Results for this | | CHOL, HDL, CALC LDL) | e | 3:18 PM | | procedure are in the | | | | PDT | | results section. | + +--------+ + + + documented in this encounter Results CBC AND AUTO DIFF (10/28/2013 3:18 PM PDT) + + + + + + | Component | Value | Ref Range | Performed | Pathologist | | | | | At | Signature | + + + + + + | WHITE CELL | 9.75 | 4.40 - 11.00 | [facility] | | | COUNT | | K/cu mm | LABORATORY | | | | | | SERVICES, | | | | | | CORE | | + + + + + + | RED CELL | 4.52 | 4.00 - 5.20 | [facility] | | | COUNT | | M/cu mm | LABORATORY | | | | | | SERVICES, | | | | | | CORE | | + + + + + + | HEMOGLOBIN | 13.4 | 12.0 - 16.0 | [facility] | | | | | g/dL | LABORATORY | | | | | | SERVICES, | | | | | | CORE | | + + + + + + | HEMATOCRIT | 40.2 | 36.0 - 46.0 % | [facility] | | | | | | LABORATORY | | | | | | SERVICES, | | | | | | CORE | | + + + + + + | MCV | 88.9 | 80.0 - 96.0 fL | [facility] | | | | | | LABORATORY | | | | | | SERVICES, | | | | | | CORE | | + + + + + + | MCHC | 33.3 | 33.0 - 35.5 | [facility] | | | | | g/dL | LABORATORY | | | | | | SERVICES, | | | | | | CORE | | + + + + + + | RDW SD | 44.8 | 35.1 - 46.3 fL | [facility] | | | | | | LABORATORY | | | | | | SERVICES, | | | | | | CORE | | + + + + + + | PLATELET | 304 | 150 - 400 K/cu | [facility] | | | COUNT | | mm | LABORATORY | | | | | | SERVICES, | | | | | | CORE | | + + + + + + | MPV | 8.7 (L) | 9.7 - 12.3 fL | [facility] | | | | | | LABORATORY | | | | | | SERVICES, | | | | | | CORE | | + + + + + + | NRBC% | 0.0 | 0.0 - 0.3 % | [facility] | | | | | | LABORATORY | | | | | | SERVICES, | | | | | | CORE | | + + + + + + | NRBC# | 0.00 | 0.00 - 0.02 | [facility] | | | | | K/cu mm | LABORATORY | | | | | | SERVICES, | | | | | | CORE | | + + + + + + | NEUTROPHIL | 60.1 | 50.0 - 70.0 % | [facility] | | | % | | | LABORATORY | | | | | | SERVICES, | | | | | | CORE | | + + + + + + | LYMPHOCYTE | 25.0 | 18.0 - 42.0 % | [facility] | | | % | | | LABORATORY | | | | | | SERVICES, | | | | | | CORE | | + + + + + + | MONOCYTE % | 7.7 | 3.5 - 9.0 % | [facility] | | | | | | LABORATORY | | | | | | SERVICES, | | | | | | CORE | | + + + + + + | EOS % | 5.5 (H) | 1.0 - 3.0 % | [facility] | | | | | | LABORATORY | | | | | | SERVICES, | | | | | | CORE | | + + + + + + | BASO % | 1.1 | 0.0 - 2.0 % | [facility] | | | | | | LABORATORY | | | | | | SERVICES, | | | | | | CORE | | + + + + + + | IG% | 0.6 | 0.0 - 0.6 % | [facility] | | | | | | LABORATORY | | | | | | SERVICES, | | | | | | CORE | | + + + + + + | NEUTROPHIL | 5.85 | 1.80 - 7.70 | [facility] | | | # | | K/cu mm | LABORATORY | | | | | | SERVICES, | | | | | | CORE | | + + + + + + | LYMPHOCYTE | 2.44 | 1.00 - 4.80 | [facility] | | | # | | K/cu mm | LABORATORY | | | | | | SERVICES, | | | | | | CORE | | + + + + + + | MONOCYTE # | 0.75 | 0.10 - 0.90 | [facility] | | | | | K/cu mm | LABORATORY | | | | | | SERVICES, | | | | | | CORE | | + + + + + + | EOS # | 0.54 (H) | 0.00 - 0.50 | [facility] | | | | | K/cu mm | LABORATORY | | | | | | SERVICES, | | | | | | CORE | | + + + + + + | BASO # | 0.11 (H) | 0.00 - 0.10 | [facility] | | | | | K/cu mm | LABORATORY | | | | | | SERVICES, | | | | | | CORE | | + + + + + + | IG# | 0.06 (H) | 0.00 - 0.03 | [facility] | | | | | K/cu mm | LABORATORY | | | | | | SERVICES, | | | | | | CORE | | + + + + + + + + | Specimen | + + | Blood - Blood | + + + + + | Narrative | Performed At | + + + | Immature Granulocytes (IG) include metamyelocytes, myelocytes | [facility] | | and promyelocytes. Bands are not included in the IG count. Bands are | LABORATORY | | included in the neutrophil count. | [facility] | + + + + + + + + | Performing | Address | City/State/Zipcode | Phone Number | | Organization | | | | + + + + + | [facility] | [address] | [place] [address] | | | SERVICES, CORE | [address] | | | + + + + + LIPID SET (TRIG, T CHOL, HDL, CALC LDL) (10/28/2013 3:18 PM PDT) + +---------+ + + + | Component | Value | Ref Range | Performed | Pathologist | | | | | At | Signature | + +---------+ + + + | CHOLESTEROL | 160 | <200 mg/dL | [facility] | | | (LAB) | | | LABORATORY | | | | | | SERVICES, | | | | | | CORE | | + +---------+ + + + | TRIGLYCERID | 147 | <150 mg/dL | [facility] | | | ES | | | LABORATORY | | | | | | SERVICES, | | | | | | CORE | | + +---------+ + + + | HDL | 53 | >40 mg/dL | [facility] | | | CHOLESTEROL | | | LABORATORY | | | | | | SERVICES, | | | | | | CORE | | + +---------+ + + + | HDL CMNT | No Hemo | | [facility] | | | | | | LABORATORY | | | | | | SERVICES, | | | | | | CORE | | + +---------+ + + + | LDL | 78 | <100 mg/dL | [facility] | | | CHOLESTEROL | | | LABORATORY | | | , | | | SERVICES, | | | CALCULATED | | | CORE | | + +---------+ + + + | VLDL | 29 | <31 mg/dL | [facility] | | | CHOLESTEROL | | | LABORATORY | | | , | | | SERVICES, | | | CALCULATED | | | CORE | | + +---------+ + + + | NON-HDL | 107 | <130 mg/dL | [facility] | | | CHOLESTEROL | | | LABORATORY | | | | | | SERVICES, | | | | | | CORE | | + +---------+ + + + + + | Specimen | + + | Blood - Blood | + + + + + | Narrative | Performed At | + + + | Cholesterol Reference Range: Desirable: <200 | [facility] | | mg/dL Borderline High: 200 - 239 mg/dL | LABORATORY | | High: >=240 mg/dL LDL Cholesterol | SERVICES, CORE | | Reference Range: Optimal: <100 mg/dL | | | Near Optimal: 100-129 mg/dL Borderline High: 130-159 | | | mg/dL High: 160-189 mg/dL | | | Very High: >=190 mg/dL non-HDL Cholesterol Reference Range: | | | Optimal: <130 mg/dL Near Optimal: | | | 130-159 mg/dL Borderline High: 160-189 mg/dL | | | High: 190-209 mg/dL Very High: | | | >=210 mg/dL Triglyceride Reference Range: | | | Normal: <150 mg/dL Borderline High: 150-199 mg/dL | | | High: 200-499 mg/dL Very High: >=500 mg/dL | | | HDL Reference Range: High Risk: <40 mg/dL | | | Desirable: >=60 mg/dL | | + + + + + + + + | Performing | Address | City/State/Zipcode | Phone Number | | Organization | | | | + + + + + | [facility] | [address] | [place] [address] | | | SERVICES, CORE | [address] | | | + + + + + LIPOPROTEIN (A), SERUM (10/28/2013 3:18 PM PDT) + + + + + + | Component | Value | Ref Range | Performed | Pathologist | | | | | At | Signature | + + + + + + | LIPOPROTEIN | 102 (H)Comment: | <=29 mg/dL | [facility] | | | (A) | Performed by [facility] | | [facility] | | | | [facility],[address] | | [facility] | | | | [place], [place] [address] | | | | | | [phone]. | | | | | | Prakash lockhart, | | | | | | MD Lab. Director | | | | + + + + + + + + | Specimen | + + | Blood - Blood | + + + + + + + | Performing | Address | City/State/Zipcode | Phone Number | | Organization | | | | + + + + + | [facility] | [address] | [place], [place] | | | [facility] | | [phone] | | + + + + + SEDIMENTATION RATE (10/28/2013 3:18 PM PDT) + +--------+ + + + | Component | Value | Ref Range | Performed | Pathologist | | | | | At | Signature | + +--------+ + + + | SEDIMENTATI | 43 (H) | 0 - 30 mm/hr | [facility] | | | ON RATE | | | LABORATORY | | | [...] | + + + + + | [facility] | [address] [facility] | [place] [address] | | | SERVICES, CORE | [address] | | | + + + + + COMPLETE METABOLIC SET (NA,K,CL,CO2,BUN,CREAT,GLUC,CA,AST,ALT,BILI TOTAL,ALK PHOS,ALB,PROT TOTAL) (10/28/2013 3:18 PM PDT) + +---------+ + + + | Component | Value | Ref Range | Performed | Pathologist | | | | | At | Signature | + +---------+ + + + | GLUCOSE, | 95 | 60 - 99 mg/dL | [facility] | | | PLASMA | | | LABORATORY | | | (LAB) | | | SERVICES, | | | | | | CORE | | + +---------+ + + + | BUN, PLASMA | 17 | 6 - 20 mg/dL | [facility] | | | (LAB) | | | LABORATORY | | | | | | SERVICES, | | | | | | CORE | | + +---------+ + + + | CREATININE | 0.83 | 0.60 - 1.10 | [facility] | | | PLASMA | | mg/dL | LABORATORY | | | (LAB) | | | SERVICES, | | | | | | CORE | | + +---------+ + + + | EGFR | >60 | >60 mL/min | [facility] | | | - | | | LABORATORY | | | [place] | | | SERVICES, | | | [...] +---------+ + + + | POTASSIUM, | 3.6 | 3.4 - 5.0 | [facility] | | | PLASMA | | mmol/L | LABORATORY | | | (LAB) | | | SERVICES, | | | | | | CORE | | + +---------+ + + + | CHLORIDE, | 105 | 97 - 108 mmol/L | [facility] | | | PLASMA | | | LABORATORY | | | (LAB) | | | SERVICES, | | | | | | CORE | | + +---------+ + + + | TOTAL CO2, | 29 | 21 - 32 mmol/L | [facility] | | | PLASMA | | | LABORATORY | | | (LAB) | | | SERVICES, | | | | | | CORE | | + +---------+ + + + | CALCIUM, | 9.1 | 8.6 - 10.2 | [facility] | | | PLASMA | | mg/dL | LABORATORY | | | (LAB) | | | SERVICES, | | | | | | CORE | | + +---------+ + + + | BILIRUBIN | 0.4 | 0.3 - 1.2 mg/dL | [facility] | | | TOTAL | | | LABORATORY | | | | | | SERVICES, | | | | | | CORE | | + +---------+ + + + | TOTAL | 8.2 | 6.4 - 8.2 g/dL | [facility] | | | PROTEIN, | | | LABORATORY | | | PLASMA | | | SERVICES, | | | (LAB) | | | CORE | | + +---------+ + + + | ALBUMIN, | 3.6 | 3.5 - 4.7 g/dL | [facility] | | | PLASMA | | | LABORATORY | | | (LAB) | | | SERVICES, | | | | | | CORE | | + +---------+ + + + | ALK PHOS | 90 | 42 - 98 U/L | [facility] | | | | | | LABORATORY | | | | | | SERVICES, | | | | | | CORE | | + +---------+ + + + | AST(SGOT) | 30 | 15 - 41 U/L | [facility] | | | | | | LABORATORY | | | | | | SERVICES, | | | | | | CORE | | + +---------+ + + + | ALT (SGPT) | 38 | 12 - 60 U/L | [facility] | | | | | | LABORATORY | | | | | | SERVICES, | | | | | | CORE | | + +---------+ + + + | ANION | 6 | 4 - 11 mmol/L | [facility] [...] + | ANION GAP | 5 | mmol/L | [facility] | | | [...] + | [facility] | [address] | [place] [address] | | | SERVICES, CORE | [address] | | | + + + + + VITAMIN D, 25-HYDROXY, SERUM (10/28/2013 3:18 PM PDT) + +-------+ + + + | Component | Value | Ref Range | Performed | Pathologist | | | | | At | Signature | + +-------+ + + + | VITAMIN D | 30.5 | 30 - 80 ng/mL | [facility] [...] [facility] | [address] | [place] [address] | | | SERVICES, SPECIAL | [address] | | | | IMM + COAG | | | | + + + + + FREE T4 (10/28/2013 3:18 PM PDT) + +-------+ + + + | Component | Value | Ref Range | Performed | Pathologist | | | | | At | Signature | + +-------+ + + + | FREE T4 | 1.2 | 0.6 - 1.2 ng/dL | [facility] | | | | | | LABORATORY | | | | | | SERVICES, | | | | | | CORE | | + +-------+ + + + + + | Specimen | + + | Blood - Blood | + + + + + | Narrative | Performed At | + + + | Test now performed at [facility]. New method effective 12/18/12. | [facility] | | | LABORATORY | | | SERVICES, CORE | + + + + + + + + | Performing | Address | City/State/Zipcode | Phone Number | | Organization | | | | + + + + + | [facility] | [address] | [place] [address] | | | SERVICES, CORE | [address] | | | + + + + + TSH (10/28/2013 3:18 PM PDT) + +-------+ + + + | Component | Value | Ref Range | Performed | Pathologist | | | | | At | Signature | + +-------+ + + + | TSH | 1.09 | 0.50 - 5.07 | [facility] | [...] utilizing a similar TSH assay, and | SERVICES, CORE | | should be interpreted with caution. | | + + + + + + + + | Performing | Address | City/State/Zipcode | Phone Number | | Organization | | | | + + + + + | [facility] | [address] | [place] [address] | | | SERVICES, CORE | [address] | | | + + + + + documented in this encounter Visit Diagnoses + + | Diagnosis | + + | Hypothyroidism Unspecified hypothyroidism | + + | Vitamin D deficiency | + + | Morbid obesity with BMI of 50.0-59.9, adult (HCC) | + + | Hyperlipidemia Other and unspecified hyperlipidemia | + + documented in this encounter"
--- OUTSIDE RECORDS SUMMARY | ~2018-12-08 | XMS | Encounter Summary ---
Demographics + + + | Address | [address] | | | [place] [address] | + + + | Home Phone | | + + + | Preferred Language | Unknown | + + + | Marital Status | Single | + + + | Anabaptist Affiliation | Unknown | + + + [...] Team Providers + +------+ + | Care Clinical Pharmacy Specialist Name | Role | Phone | + [...] Closed | | Cardiology | Diagnoses | Christie, | Gordo, | | | | | | MD Tani | JORGE Tineo | | | | | Hyperlipidem | [address] | [address] | | | | | ia, | Ave | Rad[place] | | | | | unspecified | [place] | Jorge [place]BRAMS | | | | | hyperlipidem | [address] | [place] | | | | | ia type | Phone: | [phone] | | | | | Elevated | [phone] | | | | | | lipoprotein( | Fax: | | | | | | a) | [phone] | | | | | | Metabolic | | | | | | | syndrome | | | | | | | Controlled | | | | | | | type 2 | | | | | | | diabetes | | | | | | | mellitus | | | | | | | without | | | | | | | complication | | | | | | | , without | | | | | | | long-term | | | | | | | current use | | | | | | | of insulin | | | | | | | (HCC) | | | | | | | Procedures | | | | | | | CONSULT TO | | | | | | | CAR | | | | | | | PREVENTATIVE | | | | | | | [facility] - | | | | | | | LIPIDS | | | +--------+--------+ + + + + Reason for Visit Consultation (Routine) +--------+--------+ + + + + | Status | Reason | Specialty | Diagnoses / | Referred By | Referred To | | | | | Procedures | Contact | Contact | +--------+--------+ + + + + | Closed | | Cardiology | Diagnoses | Sitz, | Christie | | | | | | Sky | MD Tani | | | | | Hyperlipidem | MD Wilfredo | [address] | | | | | ia Elevated | JULIAN | Ave | | | | | | INTERNAL | [place], [place] | | | | | lipoprotein( | MEDICINE | [address] | | | | | a) | [address] | Phone: | | | | | Hypothyroidi | [place] | [phone] | | | | | sm | [address] | Fax: | | | | | Metabolic | [place], | [phone] | | | | | syndrome | [place] [address] | | | | | | Procedures | Phone: | | | | | | CONSULT TO | [phone] | | | | | | CARDIOLOGY | Fax: | | | | | | | [phone] | | +--------+--------+ + + + + Encounter Details +--------+---------+ + + + | Date | Type | Department | Care Team | Description | +--------+---------+ + + + | 11/28/ | Office | Cardiology | Tani Soriano MD | Hyperlipidemia, | | 2017 | Visit | Preventive at [facility] | [address] | unspecified | | | | [address] | [place], [place] | hyperlipidemia type | | | | Mailcode: CH9A | [address] | (Primary Dx); | | | | [facility] | [phone] | Elevated | | | | and Healing, | | lipoprotein(a) 102 | | | | Building 1 | | mg/dl; Metabolic | | | | [place], [place] | | syndrome; Controlled | | | | [address] | | type 2 diabetes | | | | [phone] | | mellitus without | | | | | | complication, | | | | | | without long-term | | | | | | current use of | | | | | | insulin (HCC); | | | | | | Acquired | | | | | | hypothyroidism | +--------+---------+ + + + Social History [...] + + + | Blood Pressure | 115/54 | 11/28/2016 2:24 PM | | | | | PDT | | + + + + + | Pulse | 76 | 11/28/2016 2:24 PM | | | | | PDT | | + + + + + | Temperature | - | - | | + + + + + | Respiratory Rate | - | - | | + + + + + | Oxygen Saturation | 96% | 11/28/2016 2:24 PM | | | | | PDT | | + + + + + | Inhaled Oxygen | - | - | | | Concentration | | | | + + + + + | Weight | 127 kg (280 lb) | 11/28/2016 2:24 PM | | | | | PDT | | + + + + + | Height | 157.5 cm (5' 2") | 11/28/2016 2:24 PM | | | | | PDT | | + + + + + | Body Mass Index | 51.21 | 11/28/2016 2:24 PM | | | | | PDT | | + + + + + documented in this encounter Progress Notes Tani Soriano MD - 11/28/2016 1:45 PM PDTFormatting of this note might be different from yvette goddard. [facility] Subjective Rebel Singh is a 56 y.o. 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 She had izabel cristofer sleeve surgery 10/03/16 in [facility] on October 03. She has already lost 50 lbs o f body weight. She is taking supplemental vitamin B12, iron and vitamin D. She is not taki ng a regular multivitamin. She is eating solid foods. She is unable to walk much because o f a flare of gout after surgery. She is taking omeprazole for GERD that was aggravated by t he gastric sleeve surgery. 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 Metabolic syndrome CARLENE (obstructive sleep apnea) - sleep study in [place] AHI of 30 per hour. Allergies Allergen Reactions Penicillin G Hives and Dyspnea Sulfa (Sulfonamide Antibiotics) Hives Current Medications Patient is Taking: Cholecalciferol (vitamin D3) 2,000 Unit Tablet - Take 2,000 Units by mouth once daily. Desvenlafaxine Succinate Er 50 Mg Tablet,extended Release 24 Hr - Take 50 mg by mouth o nce daily. Liothyronine 5 Mcg Tablet - Take 7.5 mcg by mouth once daily. Metoprolol Tartrate 50 Mg Tablet - Take 50 mg by mouth two times daily. Mometasone Furoate (bulk) Misc - Apply to affected area. Indications: aplly 1% cream t opically Omeprazole 20 Mg Capsule,delayed Release - Take 20 mg by mouth once daily. Vitamin B Complex Oral - Take 1 tablet by mouth once daily. Losartan 100 Mg Tablet - Take 100 mg by mouth once daily. Indications: hypertension Prednisone 20 Mg Tablet - Take 20 mg by mouth once daily as needed (gout). Allopurinol 300 Mg Tablet - Take 300 mg by mouth once daily. Indications: prevention of acute gout attack Iron 18 Mg Tablet - Take 18 mg by mouth two times daily. Plus 30 mg of vitamin C per pi ll Multivitamin With Minerals Tablet - Take 1 tablet by mouth once daily. Lovastatin 20 Mg Tablet - Take 1 tablet by mouth once daily in the evening. Administer with evening meal. Physical Exam BP 115/54 | Pulse 76 | Ht 1.575 m (5' 2") | Wt 127 kg (280 lb) | SpO2 96% | BMI 51.21 kg/(m ^2) Body mass index is 51.21 kg/(m^2). Alert, NAD, mood WNL Skin mild acanthosis nigricans Thyroid 20-25 g. No palpable nodules Cardiac-RRR, no murmur/S3/S4/rubs. No JVD. Pulses 2+. No bruits Abdomen: No hepatosplenomegaly, masses, or tenderness Extremities: trace pretibial edema. Wt Readings from Last 10 Encounters: 11/28/16 127 kg (280 lb) 06/27/16 151.5 kg (334 lb) 09/22/15 145.8 kg (321 lb 6.4 oz) 05/19/15 143.8 kg (317 lb) 05/19/15 143.8 kg (317 lb) 05/19/15 143.8 kg (317 lb) 01/13/15 142.5 kg (314 lb 1.6 oz) 01/12/15 142.4 kg (314 lb) 09/16/14 141.7 kg (312 lb 4.8 oz) 09/16/14 141.7 kg (312 lb 4.8 oz) Labs Component Latest Ref Rng 10/28/2013 10/28/2013 [...] D 25-OH 30-80 ng/mL 33.1 Assessment Rebel Singh is a 56 y.o. female who has medical problems noted above. 1. Dyslipidemia: High Lp(a), but mostly acceptable LDL-C 80, HDL-C 49 and mildly elevated TG 173. An LDL-C < 70 may be preferable, but weight loss may help lower her LDL-C. Repeat fasting lab testing can be done 5-6 weeks after she resumes treatment with lovastatin. 2. Hypothyroidism: She has been euthyroid 3. HTN: BP is normal today 4. Metabolic syndrome: BMI was up to 63 kg/m2, but she has already lost about 50 lbs since undergoing gastric sleeve surgery in [place]. She needs to meet with our dietitian so she c an receive post-surgical dietary counseling. Treatment of CARLENE is likely to facilitate weigh t loss. Stress related to her son's after his struggle with metastatic esophageal can cer is negatively impacting her ability to lose weight. She received almost no post-operati ve guidance in [place], in part because most of the communication was in Venezuelan, which she d oes not speak 5. CARLENE: Prior sleep study in [place] apparently identified an AHI of 30 per hour. This should be improving in response to weight loss 6. Vitamin D deficiency: She needs to resume taking supplemental vit D Plan Continue taking supplemental vitamin B12, iron and vitamin D Resume taking lovastatin at reduced dose of 20 mg/d, which should be sufficient in the cont ext of weight loss Start taking a daily multivitamin She will have lab testing performed next week in [place] - I gave her printed orders Meet with our dietitian regarding meal planning - she received very limited instruction fro m the surgeon in [place] and most of the communication was in Venezuelan, which she does not spe ak. RTC 4-5 months with lab testing for CBC, iron, vitamin D, CMP, lipid profile, etc. F/U more frequently with her PCP in [place] Irwin De Jesus, PharmD - 1 1:45 PM PDT Preventive Cardiology Clinic Pharmacy Consult Met with Rebel Singh, a 56 year old female who returns to clinic today for managem ent of ASCVD risk factors. Last seen by Dr. Soriano 06/27/2016. Pertinent past medical history: 1. Obesity s/p bariatric sleeve 10/03/2016 in [place] Wt Readings from Last 3 Encounters: 11/28/16 127 kg (280 lb) 06/27/16 151.5 kg (334 lb) 09/22/15 145.8 kg (321 lb 6.4 oz) a. Lifetime max 334 lbs b. Weight trend: down c. Not currently on therapy. previously taking phentermine 37.5 mg daily, discontinued 09/24 16 post-bariatric surgery 2. Hypertension BP Readings from Last 3 Encounters: 06/27/16 136/61 09/22/15 140/80 05/19/15 144/81 a. BP goal <140/90 mmHg b. Currently taking losartan 100 mg daily, furosemide 40 mg daily, metoprolol tartrate 50 mg BID c. Medication concerns: none 3. Hypercholesterolemia - 10 year ASCVD risk 4.6%, lifetime ASCVD risk 50%, 10 year CHD MES A risk 4.7% a. LDL 80 mg/dl 09/2014 (goal <700 mg/dl), peak 80 mg/dl 09/2014 (treated) b. LP(a) 102 mg/dl 10/2013 c. TG 173 mg/dl 09/2014 d. Not currently on therapy i. Lipid lowering therapy history: previously taking lovastatin 40 mg daily (initiated >5 years ago), discontinued 09/2016 post-bariatric surgery. Was having GI distress on lovastati n post-surgery. 4. Type 2 diabetes a. A1C 7% 06/2016 (goal <7%), peak 7% 06/2016 b. Complications: none c. Hypoglycemic episodes: none d. Not currently on therapy 5. Hypothyroidism a. TSH 1.09 10/2013, FT4 1.1 04/2014, FT3 2.67 04/2014 b. Currently taking Liothyronine 7.5 mcg daily 6. Depression a. Currently taking desvenlafaxine 7. GERD a. Currently taking omeprazole 8. Gout a. Currently taking allopurinol, prednisone Social History Substance Use Topics Smoking status: Former Smoker Quit date: 02/05/1997 Smokeless tobacco: None Alcohol use None Vitals BP 115/54 | Pulse 76 | Ht 62" | Wt 127 kg (280 lb) | SpO2 96% | BMI 51.21 kg/(m^2) Waist Circumference: Labs Lipids Lab Results Component Value Date LDL 80 09/16/2014 LDL 78 10/28/2013 HDL 49 09/16/2014 HDL 53 10/28/2013 TRI 173 (H) 09/16/2014 TRI 147 10/28/2013 CHOL 164 09/16/2014 CHOL 160 10/28/2013 CMP Lab Results Component Value Date NA 139 09/16/2014 NA 139 10/28/2013 K 4.2 09/16/2014 K 3.6 10/28/2013 CL 100 09/16/2014 CL 105 10/28/2013 BICARB 28 09/16/2014 BICARB 29 10/28/2013 BUN 15 09/16/2014 BUN 17 10/28/2013 CR 0.82 09/16/2014 CR 0.83 10/28/2013 CA 9.9 09/16/2014 CA 9.1 10/28/2013 ALB 3.7 09/16/2014 ALB 3.6 10/28/2013 AST 35 09/16/2014 AST 30 10/28/2013 ALT 49 09/16/2014 ALT 38 10/28/2013 TBILI 0.3 09/16/2014 TBILI 0.4 10/28/2013 AP 102 (H) 09/16/2014 AP 90 10/28/2013 CBC Lab Results Lab Test Name Results Date/Time WBC 9.75 10/28/13 HCT 40.2 10/28/13 HB 13.4 10/28/13 PLT 304 10/28/13 MISC Lab Results Component Value Date TSH 1.09 10/28/2013 A1C 7.0 06/27/2016 Imaging EKG: none TTE: none Calcium score: none Allergies Allergies Allergen Reactions Penicillin G Hives and Dyspnea Sulfa (Sulfonamide Antibiotics) Hives Outpatient medications Current Outpatient Prescriptions: allopurinol 300 mg oral tablet, Take 300 mg by mouth once daily. Indications: prevention of acute gout attack, Disp: , Rfl: Cholecalciferol, Vitamin D3, (VITAMIN D3) 2,000 unit oral tablet, Take 2,000 Units by mouth once daily., Disp: , Rfl: Desvenlafaxine (PRISTIQ) 50 mg oral tablet extended release 24 hr, Take 50 mg by mouth once daily., Disp: , Rfl: Iron 18 mg oral tablet, Take 18 mg by mouth two times daily. Plus 30 mg of vitamin C per pi ll, Disp: , Rfl: liothyronine (CYTOMEL) 5 mcg oral tablet, Take 7.5 mcg by mouth once daily., Disp: , Rfl: losartan 100 mg oral tablet, Take 100 mg by mouth once daily. Indications: hypertension, Di sp: , Rfl: metoprolol tartrate 50 mg oral tablet, Take 50 mg by mouth two times daily., Disp: , Rfl: MOMETASONE FUROATE, BULK, MISC, Apply to affected area. Indications: aplly 1% cream ada liz, Disp: , Rfl: multivitamin-minerals oral tablet, Take 1 tablet by mouth once daily., Disp: , Rfl: omeprazole 20 mg oral capsule,delayed release(DR/EC), Take 20 mg by mouth once daily., Disp : , Rfl: predniSONE 20 mg oral tablet, Take 20 mg by mouth once daily as needed (gout)., Disp: , Rfl : VITAMIN B COMPLEX ORAL, Take 1 tablet by mouth once daily., Disp: , Rfl: Prescription insurance: Payor/Plan Subscr Sex Relation Sub. Ins. ID Effective Group Num 1. MODA - MODA C* REBEL SINGH* 1960 Female [id number] [birth year] [id number] [id number] Pharmacy Preferences: [facility] [address] [place] [address] Hours: 9am-7pm Mon - Fri / 9am-6pm Sat / Closed Sun E-Prescribing: Yes Assessment/Recommendations: Medication review and education was completed. I reviewed patient's home medication list an d found it to be accurate with these following exceptions: -Added: losartan, allopurinol, iron-vit c, prednisone -Changed: liothyronine -Removed: losartan-HCTZ, lovastatin, phentermine, furosemide Rebel Singh has a good understanding of medication regimen, reports ample supply a nd refills of medications and endorses good adherence. Recommendations for changes to medication list: -Repeat lipids, TSH, A1C, CBC, iron -Restart statin after repeat lipid lab is drawn Thank you, Irwin Mattson PharmD, BCPS-AQ Cardiology Clinical Pharmacist [facility] Department of Pharmacy, [address] [facility] [place] [address] Pager ID: [phone] documented in this encounter Plan of Treatment + +------+--------+ + + | Name | Type | Priori | Associated Diagnoses | Order Schedule | | | | ty | | | + +------+--------+ + + | TSH | Lab | Routin | Acquired | Ordered: 11/28/2016 | | | | e | hypothyroidism | | + +------+--------+ + + | COMPLETE METABOLIC | Lab | Routin | Metabolic syndrome | Ordered: 11/28/2016 | | SET | | e | | | | (NA,K,CL,CO2,BUN,CRE | | | | | | AT,GLUC,CA,AST,ALT,B | | | | | | IGGY TOTAL,ALK | | | | | | PHOS,ALB,PROT TOTAL) | | | | | + +------+--------+ + + | CBC ONLY | Lab | Routin | Metabolic syndrome | Ordered: 11/28/2016 | | | | e | | | + +------+--------+ + + | LIPID SET (TRIG, T | Lab | Routin | Metabolic syndrome | Ordered: 11/28/2016 | | CHOL, HDL, CALC LDL) | | e | | | + +------+--------+ + + documented as of this encounter Visit Diagnoses + + | Diagnosis | + + | Hyperlipidemia, unspecified hyperlipidemia type - Primary | + + | Elevated lipoprotein(a) 102 mg/dl Other disorders of lipoid metabolism | + + | Metabolic syndrome Dysmetabolic Syndrome X | + + | Controlled type 2 diabetes mellitus without complication, without long-term current | | use of insulin (HCC) | + + | Acquired hypothyroidism Unspecified hypothyroidism | + + documented in this encounter
--- OUTSIDE RECORDS SUMMARY | ~2018-12-08 | XMS | Encounter Summary ---
Demographics + + + | Address | [address] | | | [place] [address] | + + + | Home Phone | | + + + | Preferred Language | Unknown | + + + | Marital Status | Single | + + + | Gnosticist Affiliation | Unknown | + + + [...] Team Providers + +------+ + | Care Lamp Shades Supervisor Name | Role | Phone | [...] | | | | | hyperlipidem | [address] | [place] | | | | | ia type | Phone: | [phone] | | | | | Elevated | [phone] | | | | | | lipoprotein( | Fax: | | | | | | a) | [phone] | | | | | | Metabolic [...] | | | | | INTERNAL | [place], [place] | | | | | lipoprotein( | MEDICINE | [address] | | | | | a) | [address] | Phone: | | | | | Hypothyroidi | [place] | [phone] | | | | | sm | [address] | Fax: | | | | | Metabolic | [place], | [phone] | | | | | syndrome | [place] [address] | | | | | | Procedures | Phone: | | | | | | CONSULT TO | [phone] | | | | | | CARDIOLOGY | Fax: | | | | | | | [phone] | | +--------+--------+ + + + + Encounter Details +--------+---------+ + + + | Date | Type | Department | Care Team | Description | +--------+---------+ + + + | 11/28/ | Office | Cardiology | Tani Soriano MD | Hyperlipidemia, | | 2017 | Visit | Preventive at [facility] | [address] | unspecified | | | | [address] | [place], [place] | hyperlipidemia type | | | | Mailcode: CH9A | [address] | (Primary Dx); | | | | [facility] | [phone] | Elevated | | | | and Healing, | | lipoprotein(a) 102 | | | | Building 1 | | mg/dl; Metabolic | | | | [place], [place] | | syndrome; Controlled | | | | [address] | | type 2 diabetes | | | | [phone] | | mellitus without | | | [...] had izabel cristofer sleeve surgery 10/03/16 in [facility] on October 03. She has already lost [...] (obstructive sleep apnea) - sleep study in [place] AHI of 30 per hour. Allergies Allergen [...] lbs since undergoing gastric sleeve surgery in [place]. She needs to meet with our dietitian so she c an receive post-surgical dietary counseling. Treatment of CARLENE is likely to facilitate weigh t loss. Stress related to her son's after his struggle with metastatic esophageal can cer is negatively impacting her ability to lose weight. She received almost no post-operati ve guidance in [place], in part because most of the communication was in [place], which she d oes not speak 5. CARLENE: Prior sleep study in [place] apparently identified an AHI of 30 per [...] have lab testing performed next week in [place] - I gave her printed orders Meet with our dietitian regarding meal planning - she received very limited instruction fro m the surgeon in [place] and most of the communication was in [place], which she does not spe ak. RTC 4-5 months with lab testing for CBC, iron, vitamin D, CMP, lipid profile, etc. F/U more frequently with her PCP in [place] Irwin De Jesus, PharmD - 1 1:45 PM PDT [facility] Pharmacy Consult Met with Rebel Singh, a 56 year old female who returns to clinic today for managem ent of ASCVD risk factors. Last seen by Dr. Soriano 06/27/2016. Pertinent past medical history: 1. Obesity s/p bariatric sleeve 10/03/2016 in [place] Wt Readings from Last 3 Encounters: 11/28/16 [...] - MODA C* REBEL SINGH* 1960 Female [id number] [birth year] [id number] [id number] Pharmacy Preferences: [facility] [place] [address] Hours: 9am-7pm Mon - Fri / 9am-6pm [...] Irwin Mattson PharmD, BCPS-AQ Cardiology Clinical Pharmacist [facility] Department of Pharmacy, CR 9-[address] [place] [address] Pager ID: [phone] documented in this encounter Plan of Treatment [...]
--- OUTSIDE RECORDS SUMMARY | ~2018-12-08 | XMS | Encounter Summary ---
Demographics + + + | Address | [address] | | | [place] [address] | + + + | Home Phone | | + + + | Preferred Language | Unknown | + + + | Marital Status | Single | + + + | Oriental Orthodox Affiliation | Unknown | + + + [...] Team Providers + +------+ + | Care Patch Setter Name | Role | Phone | + [...] | | | | | disorder | [address] | [address] | | | | | breathing | Ave | [place] | | | | | Metabolic | [place], [place] | Jen Munoz | | | | | syndrome | [address] | Mailcode: | | | | | Procedures | Phone: | [phone] | | | | | CONSULT TO | [phone] | [facility] | | | | | ADULT SLEEP | Fax: | Research | | | | | MEDICINE | [phone] | [address] | | | | | | | [place], [place] | | | | | | | [address] | | | | | | | Phone: | | | | | | | [phone] | | | | | | | Fax: | | | | | | | [phone] | +--------+--------+ + + + + Encounter Details +--------+---------+ + + + | Date | Type | Department | Care Team | Description | +--------+---------+ + + + | 01/12/ | Office | Sleep Disorder | Fatmata Travis MD | Obstructive sleep | | 2015 | Visit | Medicine at [facility] | [address] | apnea (Primary Dx) | | | | [facility] | Jen [place]oz [place], | | | | | [address] | [place] [address] | | | | | [place]oz Mailcode: | [phone] | | | | | [id number] | | | | | | [facility] | | | | | | [address] [place], [place] | | | | | | [address] | | | | | | [phone] | | | +--------+---------+ + + + [...] Patient name Yousif Singh 1960 [address] [place] [address] No relevant phone numbers on file. Insurance Information Payor: MODA / Plan: MODA [employer] / Product Type: PPO / F/O Payor-Plan/Addr Policy # Cert # Phone # 1 MODA - [employer]A [employer] [id number] [address] [id number] Sub Name: YOUSIF SINGH Rel to Pt: Diagnosis: Obstructive Sleep Apnea (ICD-10: G47.33) Length of need: Lifetime (99 mo) 1. Auto CPAP set to pressure Minimum = 6 and Maximum = 15 cm H2O with heated humidification and wireless modem; assign [facility] Sleep Program as patient s provider [...] Fatmata Pappas MD Date: 01/12/2015 Sent to [facility], Fatmata Fournier MD - 015 3:27 PM PST [facility] Sleep Disorders Program Followup ASSESSMENT/PLAN Yousif Singh has h/o GERD reports snoring, EDS, awakening coughing htn, HL, situational depression, ordered split PSG last visit 09/2014. [place] study 11/06 015 revealed severe CARLENE 29/hr, O2 Kenny 84%. -Encouraged weight loss. - start APAP 6-15 from [facility] in [place]. Subjective In the interim since last visit she had PSG and reviewed results with her. Reports awaekni ng coughing and discussed possibilyt of reflux Patient Active Problem List Diagnosis Morbid obesity with BMI of 50.0-59.9, adult ([facility]) Hyperlipidemia Vitamin D deficiency Hypothyroidism Elevated lipoprotein(a) 102 mg/dl Metabolic syndrome Past Medical History Diagnosis Date Morbid obesity with BMI of 50.0-59.9, adult ([facility]) 10/28/2013 Hyperlipidemia 10/28/2013 Vitamin D deficiency 10/28/2013 [...]
--- OUTSIDE RECORDS SUMMARY | ~2018-12-08 | XMS | Encounter Summary ---
Demographics + + + | Address | [address] | | | [place] [address] | + + + | Home Phone | | + + + | Preferred Language | Unknown | + + + | Marital Status | Single | + + + | Voodoo Affiliation | Unknown | + + + [...] Team Providers + +------+ + | Care Trust Operations Assistant Name | Role | Phone | + +------+ + | Sky Solis MD | PCP | | + +------+ + Reason for Visit + + + | Reason | Comments | + + + | Refill Request | Phentermine 37.5mg | + + + Encounter Details +--------+ + + + + | Date | Type | Department | Care Team | Description | +--------+ + + + + | 04/11/ | Telephone | Cardiology | Tani Soriano MD | Refill Request | | 2017 | | Preventive at [facility] | [address] | (Phentermine 37.5mg) | | | | [address] | [place], [place] | | | | | Mailcode: CH9A | [address] | | | | | [facility] | [phone] | | | | | and Healing, | | | | | | [address] | | | | | | [place], [place] | | | | | | [address] | | | | | | [phone] | | | +--------+ + + + [...]
--- OUTSIDE RECORDS SUMMARY | ~2018-12-08 | XMS | Encounter Summary ---
Demographics + + + | Address | [address] | | | [place] [address] | + + + | Home Phone [...] + + + | Author | [facility] | + + + | Organization | [facility] | + + + | Address | Unknown | + + + | Phone | Unavailable | + + + Support + + +---------+ + | Name | Relationship | Address | Phone | + + +---------+ + | Fanny Baez | ECON | Unknown | | + + +---------+ + Care Team Providers + +------+ + | Care Shear Operator Name | Role | Phone | + +------+ + | Sky Solis MD | PCP | | + +------+ + Encounter Details +--------+ + + + + | Date | Type | Department | Care Team | Description | +--------+ + + + + | 05/26/ | Abstract | Cardiology | Tani Soriano MD | | | 2017 | | Preventive at [facility] | [address] | | | | | [address] | [place], [place] | | | | | Mailcode: CH9A | [address] | | | | | [facility] | [phone] | | | | | and [address], | | | | | | [address] | | | | | | [place], [place] | | | | | | [address] | | | | | | [phone] | | | +--------+ + + + [...]
--- OUTSIDE RECORDS SUMMARY | ~2018-12-08 | XMS | Encounter Summary ---
Demographics + + + | Address | [address] | | | [place] [address] | + + + | Home Phone [...] Author + + + | Author | [facility] | + + + | Organization | [facility] | + + + | Address | Unknown | + + + | Phone | Unavailable | + + + Support + + +---------+ + | Name | Relationship | Address | Phone | + + +---------+ + | Fanny Baez | ECON | Unknown | | + + +---------+ + Care Team Providers + +------+ + | Care Wine Manager Name | Role | Phone | + +------+ + | Sky Solis MD | PCP | | + +------+ + Encounter Details +--------+ + + + + | Date | Type | Department | Care Team | Description | +--------+ + + + + | 06/22/ | Abstract | Cardiology | Tani Soriano MD | | | 2016 | | Preventive at [facility] | [address] | | | | | [address] | [place], [place] | | | | | Mailcode: CH9A | [address] | | | | | [facility] | [phone] | | | | | and [address], | | | | | | [address] | | | | | | [place], [place] | | | | | | [address] | | | | | | [phone] | | | +--------+ + + + [...]
--- OUTSIDE RECORDS SUMMARY | ~2018-12-08 | XMS | Encounter Summary ---
Demographics + + + | Address | [address] | | | [place] [address] | + + + | Home Phone | | + + + | Preferred Language | Unknown | + + + | Marital Status | Single | + + + | Yarsanism Affiliation | Unknown | + + + | Race | White | + + + | Ethnic Group | Not or | + + + Author + + + | Author | [facility] | + + + | Organization | [facility] | + + + | Address | Unknown | + + + | Phone | Unavailable | + + + Support + + +---------+ + | Name | Relationship | Address | Phone | + + +---------+ + | Fanny Baez | ECON | Unknown | | + + +---------+ + Care Team Providers + +------+ + | Care Pattern Room Attendant Name | Role | Phone | + [...] | [place], | | | | | Metabolic | MD Tani | ALEXANDER Tineo | | | | | syndrome | [address] | [address] | | | | | Procedures | Ave | [address] | | | | | CONSULT TO | [place] | [place], | | | | | CAR | [address] | [place] | | | | | PREVENTATIVE | Phone: | [address] | | | | | [facility] - | [phone] | | | | | | LIPIDS | Fax: | | | | | | | [phone] | | +--------+--------+ + + + + [...] | | | ia | [address] | Ave | | | | | Procedures | INTERNAL | [place], [place] | | | | | CONSULT TO | MEDICINE | [address] | | | | | CARDIOLOGY | [address] | Phone: | | | | | | [place] | [phone] | | | | | | [address] | Fax: | | | | | | [place], | [phone] | | | | | | [place] [address] | | | | | | | Phone: | | | | | | | [phone] | | | | | | | Fax: | | | | | | | [phone] | | +--------+--------+ + + + + Encounter Details +--------+---------+ + + + | Date | Type | Department | Care Team | Description | +--------+---------+ + + + | 01/13/ | Office | Cardiology | Tani Soriano MD | Hyperlipidemia | | 2015 | Visit | Preventive at [facility] | [address] | (Primary Dx); | | | | [address] | [facility] [place] | Elevated | | | | Mailcode: CH9A | [address] | lipoprotein(a) 102 | | | | [facility] | [phone] | mg/dl; Other | | | | and Healing, | | specified | | | | [address] | | hypothyroidism; | | | | [place], [place] | | Metabolic syndrome | | | | [address] | | | | | | [phone] | | | +--------+---------+ + + + [...] + + + | Blood Pressure | 138/60 | 01/13/2015 11:55 AM | | | | | PST | | + + + + + | Pulse | 97 | 01/13/2015 11:55 AM | | | | | PST | | + + + + + | Temperature | - | - | | + + + + + | Respiratory Rate | - | - | | + + + + + | Oxygen Saturation | 98% | 01/13/2015 11:55 AM | | | | | PST | | + + + + + | Inhaled Oxygen | - | - | | | Concentration | | | | + + + + + | Weight | 142.5 kg (314 lb 1.6 | 01/13/2015 11:55 AM | | | | oz) | PST | | + + + + + | Height | 157.5 cm (5' 2") | 01/13/2015 11:55 AM | | | | | PST | | + + + + + | Body Mass Index | 57.45 | 01/13/2015 11:55 AM | | | | | PST | | + + + + + documented in this encounter Progress Notes Tani Soriano MD - 01/13/2015 1:30 PM PSTFormatting of this note might be different from yvette goddard. Endocrinology Clinic Subjective Rebel Skinner is a 54 y.o. 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 She has not lost weight. She has had a high level of stress. Her son's esophageal cancer has metastasi zed and he is doing worse because of nausea and emesis related to the new chemotherapy he st arted about 2 weeks ago. Exercise: She started walking around the track for 5-10 minutes t wice weekly and swimming twice weekly. No chest pain, chest pressure, chest discomfort, or exertional dyspnea. She has been eating fewer meals. She has been taking phentermine 37.5 mg at about 9 AM daily. She still gets hungry, but the medication suppresses snacking. She had the sleep study in [place] and apparently was found to have an [...] by mouth once daily. Physical Exam BP 138/60 | Pulse 97 | Ht 1.575 m (5' 2") | Wt 142.475 kg (314 lb 1.6 oz) | SpO2 98% | BMI 57.44 kg/(m^2) Body mass index is 57.44 kg/(m^2). Alert, NAD, mood WNL Skin mild acanthosis nigricans Thyroid 20-25 g. No palpable nodules Cardiac-RRR, no murmur/S3/S4/rubs. No JVD. Pulses 2+. No bruits Abdomen: No hepatosplenomegaly, masses, or tenderness Extremities: trace pretibial edema. Wt Readings from Last 5 Encounters: 01/13/15 142.475 kg (314 lb 1.6 oz) 01/12/15 142.429 kg (314 lb) 09/16/14 141.658 kg (312 lb 4.8 oz) 09/16/14 141.658 kg (312 lb 4.8 oz) 05/12/14 137.803 kg (303 lb 12.8 oz) Labs Component Latest Ref Rng 10/28/2013 [...] ng/mL 33.1 Assessment Rebel Skinner is a 54 y.o. female who has medical problems noted above. 1. Dyslipidemia: High Lp(a), but mostly acceptable LDL-C 80, HDL-C 49 and mildly elevated TG 173. An LDL-C < 70 may be preferable, but weight loss may help lower her LDL-C 2. Hypothyroidism: She has been euthyroid 3. BP is high normal, but acceptable for now 4. Metabolic syndrome: BMI 57. She will meet with our dietitian . Treatment of CARLENE may f acilitate weight loss. Stress related to her son's struggle with metastatic esophageal canc er is negatively impacting her ability to lose weight. Bariatric surgery would be very help ful in the endeavor to lower her excess body adiposity, but it has previously been blocked b y her insurance plan. 5. CARLENE: She needs to start treatment 6. Vitamin D deficiency: Her level was low normal in September Plan Continue gradually increasing her physical activity Meet with our dietitian Continue taking phentermine Start CPAP treatment as soon as she is allowed by her insurance plan to proceed RTC 3 months documented in this encounter Plan of Treatment Not on filedocumented as of this encounter Visit Diagnoses + + | Diagnosis | + + | Hyperlipidemia - Primary Other and unspecified hyperlipidemia | + + | Elevated lipoprotein(a) 102 mg/dl Other disorders of lipoid metabolism | + + | Other specified hypothyroidism | + + | Metabolic syndrome Dysmetabolic Syndrome X | + + documented in this encounter
--- OUTSIDE RECORDS SUMMARY | ~2018-12-08 | XMS | Encounter Summary ---
Demographics + + + | Address | [address] | | | [place] [address] | + + + | Home Phone [...] Team Providers + +------+ + | Care Hoop Driving Machine Operator Name | Role | Phone | + +------+ + | Sky Solis MD | PCP | | + +------+ + Encounter Details +--------+------+ + + + | Date | Type | Department | Care Team | Description | +--------+------+ + + + | 06/27/ | Lab | Laboratory at [facility] | | Metabolic syndrome | | 2017 | | [address] | | | | | | [place], [place] | | | | | | [address] | | | | | | [phone] | | | +--------+------+ + + + Social History [...] | + +--------+ + + + | HEMOGLOBIN A1C, | Routin | 06/27/2016 | Metabolic syndrome | Results for this | | BLOOD | e | 3:00 PM | | procedure are in the | | | | PDT | | results section. | + +--------+ + + + | GLUCOSE, PLASMA | Routin | 06/27/2016 | Metabolic syndrome | Results for this | | | e | 3:00 PM | | procedure are in the | | | | PDT | | results section. | + +--------+ + + + documented in this encounter Results GLUCOSE, PLASMA (06/27/2016 3:00 [...] | + + + + + | [facility] | [address] | [place] [address] | | | SERVICES, CORE | PARK [...] (H)Comment: Hgb A1C | <5.7 % | CTSU | | | A1C | Interpretive | [...] glycated albumin should be considered for monitoring petroleum terminal plant operator | LABORATORY | | glycemic control in [...] | + + + + + | [facility] | [address] | [place] [address] | | | SERVICES, SPECIAL | [address] | | | | IMM + COAG | | | | + + + + + documented in this encounter Visit Diagnoses + + | Diagnosis | + + | Metabolic syndrome Dysmetabolic Syndrome X | + + documented in this encounter"
--- OUTSIDE RECORDS SUMMARY | ~2018-12-08 | XMS | Encounter Summary ---
Demographics + + + | Address | [address] | | | [place] [address] | + + + | Home Phone [...] Author + + + | Author | [facility] | + + + | Organization | [facility] | + + + | Address | Unknown | + + + | Phone | Unavailable | + + + Support + + +---------+ + | Name | Relationship | Address | Phone | + + +---------+ + | Fanny Baez | ECON | Unknown | | + + +---------+ + Care Team Providers + +------+ + | Care Art Therapy Certified Supervisor Name | Role | Phone | + +------+ + | Sky Solis MD | PCP | | + +------+ + Encounter Details +--------+ + + + + | Date | Type | Department | Care Team | Description | +--------+ + + + + | 05/22/ | Abstract | Cardiology | Tani Soriano MD | | | 2015 | | Preventive at [facility] | [address] | | | | | [address] | [place], [place] | | | | | Mailcode: CH9A | [address] | | | | | [facility] | [phone] | | | | | and [address], | | | | | | [address] | | | | | | [place], [place] | | | | | | [address] | | | | | | [phone] | | | +--------+ + + + [...] + +--------+ + + + | FREE T3, SERUM | Routin | 04/24/2014 | | Results for this | | | e | | | procedure are in the | | | | | | results section. | + +--------+ + + + documented in this encounter Results FREE T3, SERUM (04/24/2014) + +-------+ + + + | Component | Value | Ref Range | Performed | Pathologist | | | | | At | Signature | + +-------+ + + + | FREE T4 | 1.1 | 0.7 - 1.7 ng/dL | NON [facility] | | | | | | LAB | | + +-------+ + + + | FREE T3 | 2.67 | 2.5 - 4.3 | NON [facility] | | | | | | LAB | | + +-------+ + + + + + | Specimen | + + | Blood - Blood | + + + +---------+ + + | Performing | Address | City/State/Zipcode | Phone Number | | Organization | | | | + +---------+ + + | NON [facility] | | | | + +---------+ + + documented in this encounter Visit Diagnoses Not on filedocumented in this encounter"
--- OUTSIDE RECORDS SUMMARY | ~2018-12-08 | XMS | Encounter Summary ---
Demographics + + + | Address | [address] | | | [place] [address] | + + + | Home Phone [...] + + + | Author | [facility] | + + + | Organization | [facility] | + + + | Address | Unknown | + + + | Phone | Unavailable | + + + Support + + +---------+ + | Name | Relationship | Address | Phone | + + +---------+ + | Fanny Baez | ECON | Unknown | | + + +---------+ + Care Team Providers + +------+ + | Care Diesel Engine Inspector Name | Role | Phone | + +------+ + | Sky Solis MD | PCP | | + +------+ + Encounter Details +--------+ + + + + | Date | Type | Department | Care Team | Description | +--------+ + + + + | 06/22/ | Abstract | Cardiology | Tani Soriano MD | | | 2016 | | Preventive at [facility] | [address] | | | | | [address] | [place], [place] | | | | | Mailcode: CH9A | [address] | | | | | [facility] | [phone] | | | | | and [address], | | | | | | [address] | | | | | | [place], [place] | | | | | | [address] | | | | | | [phone] | | | +--------+ + + + [...]
--- OUTSIDE RECORDS SUMMARY | ~2018-12-08 | XMS | Encounter Summary ---
Demographics + + + | Address | [address] | | | [place] [address] | + + + | Home Phone | | + + + | Preferred Language | Unknown | + + + | Marital Status | Single | + + + | Pentecostal Affiliation | Unknown | + + + | Race | White | + + + | Ethnic Group | Not or | + + + Author + + + | Author | [facility] | + + + | Organization | [facility] | + + + | Address | Unknown | + + + | Phone | Unavailable | + + + Support + + +---------+ + | Name | Relationship | Address | Phone | + + +---------+ + | Fanny Baez | ECON | Unknown | | + + +---------+ + Care Team Providers + +------+ + | Care Treasury Accountant Name | Role | Phone | + +------+ + | Sky Solis MD | PCP | | + +------+ + Reason for Visit + + + | Reason | Comments | + + + | Medical nutrition | | | therapy | | + + + Consultation (Routine) [...] | | | | CONSULT TO | [place], [place] | [facility], | | | | | CAR | [address] | [place] | | | | | PREVENTATIVE | Phone: | [phone] | | | | | [facility] - | [phone] | | | | | | LIPIDS | Fax: | | | | | | | [phone] | | +--------+--------+ + + + + Encounter Details +--------+---------+ + + + | Date | Type | Department | Care Team | Description | +--------+---------+ + + + | 05/18/ | Office | Cardiology | Rivka Caro, | Morbid obesity with | | 2016 | Visit | Preventive at [facility] | [address] | BMI of 50.0-59.9, | | | | [address] | [address] | adult (HCC) (Primary | | | | Mailcode: CH9A | [place], [place] | Dx); | | | | [place] [facility] | [address] | Hyperlipidemia, | | | | and Healing, | | unspecified | | | | [address] | | hyperlipidemia type | | | | [place], [place] | | | | | | [address] | | | | | | [phone] | | | +--------+---------+ + + + [...] + + + | Blood Pressure | - | - | | + + + + + | Pulse | - | - | | + [...] | 143.8 kg (317 lb) | 05/19/2015 12:59 PM | | | | | PDT | | + + + + + | Height | 157.5 cm (5' 2") | 05/19/2015 12:59 PM | | | | | PDT | | + + + + + | Body Mass Index | 57.98 | 05/19/2015 12:59 PM | | | | | PDT | | + + + + + documented in this encounter Progress Rivka Carson, RD - 05/19/2015 12:47 PM PDTFormatting of this note might be different fro m the original. [facility] Preventive Cardiology, Nutrition Consultation Referring Provider: Dr. Soriano Referring diagnosis: hyperlipidemia, very high Lp(a) 102 mg/dl, hypothyroidism, metabolic s yndrome, obesity Visit type: Initial; ekug-lo-ytko with patient & grandsonMathew SUBJECTIVE: Questions/Information desired today: Has been on Phentermine for a while (1 year) & wants t o lose more weight & be healthier. Has had a lot of emotional stress lately (son recently pa ssed away). Recent weight changes: Has gained in the past year which she attributes to stress, grief, b usy schedule (working 3 jobs), but states, "I can't imagine how much I would have gained if I hadn't been on Phentermine." Past diet education: no Current diet: regular; hates cooked vegetables (except corn) but likes raw vegetables. Typical food intake: 24-hr recall B (6:30am): HB egg S (10am): granola bar L (11:30): fruit (couple pieces each of pineapple, cantaloupe, watermelon) S (7-8pm): 1/2 bag chips (driving into [place]) D (9pm): 2 tacos w/ soft tortilla, beef, cheese lettuce - [employer] Fluids: water, coffee w/ Equal; occ coffee drink - caramel frappe (2/mo); occ diet soda (tr miranda to avoid); ETOH (2 glasses wine/wk; 1 cocktail/wk) Cooking and shopping done by pt or . likes to have ice cream for dinner, or cooks lunch - ckn/gravy over toast. If pt cooks - varies (works several jobs), usually a pre pared/packaged meal, e.g., pot pie. Is a fast eater. She & her 2 sisters just downloaded M[employer] ; she has not yet begun using. Dining out: almost daily - usually fast food (lunch or dinner; busy) Thinks she should change: probably everything Would like to change: everything. 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 Feels she could change: Thinks she is ready to change breakfast & dinner at least. Has done meal planning in the past while on [employer]. Food Allergies: No Food Intolerances: No Lactose Intolerance: Mild; limits portions Current Physical Activity: Not much. Plans to start going to gym w/ granddaughter when she returns from vacation. Goal is 2 days a week initially. 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 Range 10/28/2013 09/16/2014 CHOLESTEROL (LAB) Latest Ref Range: <=200 mg/dl 160 164 TRIGLYCERIDES Latest Ref Range: <150 mg/dL 147 HDL CHOLESTEROL Latest Ref Range: 49-120 mg/dl 53 49 HDL CMNT Unknown No Hemo LDL CHOLEST Latest Ref Range: <=100 mg/dl 78 80 VLDL CHOLESTEROL Latest Ref Range: <=31 mg/dl 29 35 (H) NON-HDL CHOLESTEROL Latest Ref Range: <=130 mg/dL 107 115 LIPOPROTEIN (A) Latest Ref Range: <=29 mg/dL 102 (H) TOTAL TRIGLYCERIDE - LIPID LAB Latest Ref Range: <=150 mg/dl 173 (H) Nutrition Diagnosis: Obesity related to stress, busy schedule, energy-dense food choices, i nadequate physical activity as evidenced by BMI 57.97 w/ weight gain despite taking Phenterm ine. Diet Assessment: Meal timing/spacing: erratic d/t busy schedule; no meal planning Food choices: High-fat (total/saturated), high in refined grains/sugar, high-sodium; inadeq uate fiber d/t poor intake of vegetables, fruits, whole grains, legumes. Primarily eating fa st food and high-fat frozen dinners - would benefit from switching to low-fat frozen entrees (< 600 mg sodium per meal) for portion-controlled, reduced-calorie balanced meals; still pr ocessed but would be a significant initial improvement over her current meal choices. Portions: small in the morning, large at lunch; often skips dinner - would benefit from spr eading intake more consistently throughout the day to help w/ overall portion control Fluid intake: appropriate overall; occ sweetened drinks - would benefit from d/c'ing Education provided: Provided written & verbal education to patient on heart-healthy diet and weight loss margo anna. Focused on weight loss strategies including meal timing, using healthy eating plate, Kopo Kopoin g food logs, meal planning, hydration, choosing foods that are high volume with low energy d ensity, and increasing physical activity. Handout(s) provided: Weight Loss Suggestions, Heart Healthy Meal & Snack Ideas, Overnight O ats recipe, My Heart-Healthy Plate Pt verbalized understanding of material; anticipate fair to good compliance. Patient's Comprehension: The patient is: Receptive Stage of change: Contemplation Barrier(s) to education: No Plan: Heart-healthy diet with calorie reduction to promote weight loss: -Eat within one hour of waking, then every 3 to 4 waking hours (usually 3 meals and 2-3 sna cks daily) -Use My Heart-Healthy Plate as a guide for portion-controlled, balanced meals -begin meal planning; try cooking at home more often & reduce frequency of fast food -use breakfast suggestions on handouts -use My Heart-Healthy Plate or low-fat frozen entree at lunch/dinner -Drink at least 64 ounces of calorie-free fluids throughout the day; avoid caloric beverage s such as coffee drinks -Begin practicing mindful eating - eat slowly (20-30 minutes for meals) without distraction s -Begin keeping daily food logs with [employer] -Increase physical activity; begin going to gym w/ granddaughter 2 days a week (initially) -Goal: 1-2 pounds weight loss per week; 5% w/in 6 months (16 lbs to 301 lbs by 11/2015) Follow up with dietitian as needed. Contact information was provided; call or send PhotoSynesi message to dietitian with any questions. Rivka Caro RD, LD documented in this en counter Plan of Treatment Not on filedocumented as of this encounter Visit Diagnoses + + | Diagnosis | + + | Morbid obesity with BMI of 50.0-59.9, adult (HCC) - Primary | + + | Hyperlipidemia, unspecified hyperlipidemia type | + + documented in this encounter
--- OUTSIDE RECORDS SUMMARY | ~2018-12-08 | XMS | Encounter Summary ---
Demographics + + + | Address | [address] | | | [place] [address] | + + + | Home Phone | | + + + | Preferred Language | Unknown | + + + | Marital Status | Single | + + + | Judaism Affiliation | Unknown | + + + [...] Team Providers + +------+ + | Care Microbiology Supervisor Name | Role | Phone | + +------+ + | Sky Solis MD | PCP | | + +------+ + Reason for Visit + + + | Reason | Comments | + + + | Refill Request | Phentermine HCL 37.5mg | + + + Encounter Details +--------+--------+ + + + | Date | Type | Department | Care Team | Description | +--------+--------+ + + + | /15/ | Refill | Cardiology | Duell, Tani, MD | Refill Request | | 2016 | | Preventive at [facility] | [address] | (Phentermine HCL | | | | [address] | [place], [place] | 37.5mg) | | | | Mailcode: CH9A | [address] | | | | | [facility] | [phone] | | | | | and Healing, | | | | | | [address] | | | | | | [place], [place] | | | | | | [address] | | | | | | [phone] | | | +--------+--------+ + + + [...]
--- OUTSIDE RECORDS SUMMARY | ~2018-12-08 | XMS | Encounter Summary ---
Demographics + + + | Address | [address] | | | [place] [address] | + + + | Home Phone [...] Author + + + | Author | [facility] | + + + | Organization | [facility] | + + + | Address | Unknown | + + + | Phone | Unavailable | + + + Support + + +---------+ + | Name | Relationship | Address | Phone | + + +---------+ + | Fanny Baez | ECON | Unknown | | + + +---------+ + Care Team Providers + +------+ + | Care Kitchen Runner Name | Role | Phone | + [...] | | 2017 | | Preventive at [facility] | [address] | (Phentermine 37.5mg) | | | | [address] | [place], [place] | | | | | Mailcode: CH9A | [address] | | | | | [facility] | [phone] | | | | | and Healing, | | | | | | [address] | | | | | | [place], [place] | | | | | | [address] | | | | | | [phone] | | | +--------+ + + + [...]
--- OUTSIDE RECORDS SUMMARY | ~2018-12-08 | XMS | Encounter Summary ---
Demographics + + + | Address | [address] | | | [place] [address] | + + + | Home Phone | | + + + | Preferred Language | Unknown | + + + | Marital Status | Single | + + + | Bahai Affiliation | Unknown | + + + | Race | White | + + + | Ethnic Group | Not or | + + + Author + + + | Author | [facility] | + + + | Organization | [facility] | + + + | Address | Unknown | + + + | Phone | Unavailable | + + + Support + + +---------+ + | Name | Relationship | Address | Phone | + + +---------+ + | Fanny Baez | ECON | Unknown | | + + +---------+ + Care Team Providers + +------+ + | Care Code Enforcement Officer Name | Role | Phone | [...] | Cardiology | Diagnoses | Irma, | Keesha Soriano | | | | | Sky | MD Tani | | | | | Hyperlipidem | MD Wilfredo | [address] | | | | | ia | [address] | [address] | | | | | Procedures | INTERNAL | [place], [place] | | | | | CONSULT TO | MEDICINE | [address] | | | | | CARDIOLOGY | [address] | Phone: | | | | | | [address] | [phone] | | | | | | [address] | Fax: | | | | | | [place], | [phone] | | | | | | [place] [address] | | | | | | | Phone: | | | | | | | [phone] | | | | | | | Fax: | | | | | | | [phone] | | +--------+--------+ + + + + Encounter Details +--------+---------+ + + + | Date | Type | Department | Care Team | Description | +--------+---------+ + + + | 09/16/ | Office | Cardiology | Tani Soriano MD | Hyperlipidemia | | 2015 | Visit | Preventive at [facility] | [address] | (Primary Dx); | | | | [address] | [place], [place] | Vitamin D | | | | Mailcode: CH9A | [address] | deficiency; | | | | [facility] | [phone] | Hypothyroidism, | | | | and Healing, | | unspecified | | | | [address] | | hypothyroidism type; | | | | [place], [place] | | Metabolic syndrome | | | | [address] | | | | | | [phone] | | | +--------+---------+ + + + [...] + + + | Blood Pressure | 122/64 | 09/16/2014 11:15 AM | | | | | PDT | | + + + + + | Pulse | 71 | 09/16/2014 11:15 AM | | | | | PDT | | + + + + + | Temperature | 36.6 C (97.9 F) | 09/16/2014 11:15 AM | | | | | PDT | | + + + + + | Respiratory Rate | - | - | | + + + + + | Oxygen Saturation | 98% | 09/16/2014 11:15 AM | | | | | PDT | | + + + + + | Inhaled Oxygen | - | - | | | Concentration | | | | + + + + + | Weight | 141.7 kg (312 lb 4.8 | 09/16/2014 11:15 AM | | | | oz) | PDT | | + + + + + | Height | 156.8 cm (5' 1.75") | 09/16/2014 11:15 AM | | | | | PDT | | + + + + + | Body Mass Index | 57.58 | 09/16/2014 11:15 AM | | | | | PDT | | + + + + + documented in this encounter Progress Notes Tani Soriano MD - 09/16/2014 12:57 PM PDTFormatting of this note might be different from yvette goddard. LIPID DISORDERS/ENDOCRINOLOGY CLINIC STAFF - Christie I have participated in hurst aspects of the review of records, patient interview and examinat ion, counseling, and formulation of the evaluation and treatment plan. I agree with luisumeosei vásquez by Dr. Ruelas. Please see attached notes for full details of the visit. I asked h er to try taking the phentermine later in the AM - e.g. 11 AM - because the medication is we aring off by mid to late afternoon. Mildly elevated TG; LDL-C 80 is fairly good, but LDL-C < 70 might be better in the context of her elevated Lp(a). 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/dl Metabolic syndrome Component Latest Ref Rng 09/16/2014 09/16/2014 1:15 PM 1:15 PM GLUCOSE, PLASMA (LAB) 60-99 mg/dL 82 BUN, PLASMA (LAB) 6-20 mg/dL 15 CREATININE PLASMA (LAB) 0.60-1.10 mg/dL 0.82 EGFR - ETHIOPIAN >60 mL/min >60 EGFR NON -ETHIOPIAN >60 mL/min >60 SODIUM, PLASMA (LAB) 136-145 mmol/L 139 POTASSIUM, PLASMA (LAB) 3.4-5.0 mmol/L 4.2 CHLORIDE, PLASMA (LAB) 97-108 mmol/L 100 TOTAL CO2, PLASMA (LAB) 21-32 mmol/L 28 CALCIUM, PLASMA (LAB) 8.6-10.2 mg/dL 9.9 BILIRUBIN TOTAL 0.3-1.2 mg/dL 0.3 TOTAL PROTEIN, PLASMA (LAB) 6.4-8.2 g/dL 8.3 (H) ALBUMIN, PLASMA (LAB) 3.5-4.7 g/dL 3.7 ALK PHOS 42-98 U/L 102 (H) AST(SGOT) <=41 U/L 35 ALT (SGPT) <=60 U/L 49 ANION GAP(ALB CORRECTED) 4-11 mmol/L 11 POTASSIUM CMNT No Hemo BILI T CMNT No Hemo AST CMNT No Hemo ANION GAP 11 TOTAL CHOLESTEROL - LIPID LAB <=200 mg/dl 164 VLDL CHOLESTEROL, MEASURED - LIPID LAB <=31 mg/dl 35 (H) LDL, CHOLESTEROL - LIPID LAB <=100 mg/dl 80 HDL, CHOLESTEROL - LIPID LAB 49-120 mg/dl 49 TOTAL TRIGLYCERIDE - LIPID LAB <=150 mg/dl 173 (H) IUV-RAC-FKNO <=130 mg/dL 115 25-OH vitamin D determination is still pending Kacey Soriano M.D. Karlo Lock MD - 01/2015 11:52 AM PDT Lipid Disorders Clinic Subjective Rebel Skinner is a 54 y.o. woman who is here for a followup visit regarding hyperlip idemia, very high Lp(a), hypothyroidism, and the metabolic syndrome. She is generally doing well, but is having more hunger than when she first started phentermine. She typically gets hungry around 3 in the afternoon. Her liothyronine was increased from 5 to 7.5 mcg a few mon ths ago and she is tolerating this well. Thyroid panel through her PCP in April was within n ormal limits with a TSH of 1.1. Lipids last checked in Oct. She sleeps well but endorses so me daytime fatigue. Will be having sleep study in December. She reports some constipation ov er the last few weeks, which she thinks may be related to not drinking enough water in the h ot weather. Exercise: she has difficulty walking much due to hip pain, but she is swimming regularly an d will be starting PT soon. She denies chest pain, chest pressure, or exercise intolerance. 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 Cholecalciferol, Vitamin D3, (VITAMIN D3) 2,000 unit oral tablet Take 2,000 Units by mo uth once daily. Desvenlafaxine (PRISTIQ) 50 mg oral tablet extended release 24 hr Take 50 mg by mouth o nce daily. liothyronine (CYTOMEL) 5 mcg oral tablet Take 5 mcg by mouth once daily. losartan-hydrochlorothiazide 100-25 mg oral tablet Take 1 tablet by mouth once daily. lovastatin 40 mg oral tablet Take 40 mg by mouth once daily in the evening. Administer with evening meal. meloxicam 15 mg oral tablet Take 15 mg by mouth once daily. metoprolol tartrate 50 mg oral tablet Take by mouth two times daily. MOMETASONE FUROATE, BULK, MISC Apply to affected area. Indications: aplly 1% cream top ically omeprazole 20 mg oral capsule,delayed release(DR/EC) Take 20 mg by mouth once daily. phentermine 37.5 mg oral tablet Take 1 tablet by mouth once daily in the morning. VITAMIN B COMPLEX ORAL Take 1 tablet by mouth once daily. No current facility-administered medications for this visit. Physical Exam BP 122/64 | Pulse 71 | Temp (Src) 36.6 C (97.9 F) (Oral) | Ht 1.568 m (5' 1.75") | Wt 1 41.658 kg (312 lb 4.8 oz) | SpO2 98% | BMI 57.62 kg/(m^2) Body mass index is 57.62 kg/(m^2). Alert, NAD, mood WNL Skin unremarkable Wt Readings from Last 4 Encounters: 09/16/14 141.658 kg (312 lb 4.8 oz) 09/16/14 141.658 kg (312 lb 4.8 oz) 05/12/14 137.803 kg (303 lb 12.8 oz) 01/06/14 139.164 kg (306 lb 12.8 oz) Labs Lab Results Component Value Date LDL 78 10/28/2013 HDL 53 10/28/2013 TRI 147 10/28/2013 CHOL 160 10/28/2013 Lab Results Component Value Date WBC 9.75 10/28/2013 HB 13.4 10/28/2013 HCT 40.2 10/28/2013 PLT 304 10/28/2013 MCV 88.9 10/28/2013 RDW 44.8 10/28/2013 NA 139 10/28/2013 K 3.6 10/28/2013 CR 0.83 10/28/2013 GLU 95 10/28/2013 CA 9.1 10/28/2013 CHOL 160 10/28/2013 LDL 78 10/28/2013 HDL 53 10/28/2013 TRI 147 10/28/2013 TSH 1.09 10/28/2013 Assessment Rebel Skinner is a 54 y.o. female who has medical problems noted above. 1. Dyslipidemia: High Lp(a), but acceptable LDL-C, HDL-C and TG. An LDL-C < 70 may be prefe rable. Weight loss may help lower her LDL-C 2. Hypothyroidism: She has been euthyroid. 3. BP is normal 4. Metabolic syndrome: 8 lb weight gain over last 4 months. 5. Vitamin D deficiency: She was barely replete, but aceptable Plan 1. Lipid panel today. Continue lovastatin. 2. Continue liothyronine 7.5 (PCP is managing; per pt she just had a repeat thyroid panel r ecently which was normal). 3. Continue phentermine 37.5 mg. We recommended that she try shifting this to later in the morning, e.g. around 11 am, to see if this reduces her afternoon hunger. 4. BP excellent today. Continue losartan-HCTZ and metoprolol. 5. 25-OH-D level today 6. Sleep study in Nov to assess for CARLENE 7. Healthy Lifestyle - increase exercise and healthy dietary habits. 8. RTC 3 Months - pt lives in [place]; we will try to coordinate this with her sleep stud y documented in this en counter Plan of Treatment Not on filedocumented as of this encounter Results VITAMIN D, 25-HYDROXY, SERUM [...] | + + + + + | [facility] | [address] | [place] [address] | | | SERVICES, SPECIAL | PARK [...] | | | LABORATORY | | | ETHIOPIAN | | | SERVICES, | | | [...] the MDRD equation recommended by the | [facility] | | National Kidney Disease Education Program. Estimated GFR | LABORATORY | | Interpretive Information: <60 mL/min/1.73 sq m | LISA, NELDA | | Chronic Kidney Disease <15 mL/min/1.73 [...] | + + + + + | [facility] | [address] | [place] [address] | | | NELDA GONZALEZ | [address] [...] | 173 (H) | <=150 mg/dl | [facility] | | | TRIGLYCERID | | | LAB | | | E - LIPID | | | | | | LAB | | | | | + +---------+ + + + | NON-HDL | 115 | <=130 mg/dL | [facility] | | | CHOLESTEROL | | | [...] + + + + | [facility] | [address] | [place], [place] | | | | [address] | [address] | | + + + + + | [facility] | [address] | [place], [place] | | | | [address] | [address] | | + + + + + documented in this encounter Visit Diagnoses + + | Diagnosis | + + | Hyperlipidemia - Primary Other and unspecified hyperlipidemia | + + | Vitamin D deficiency | + + | Hypothyroidism, unspecified hypothyroidism type | + + | Metabolic syndrome Dysmetabolic Syndrome X | + + documented in this encounter
--- OUTSIDE RECORDS SUMMARY | ~2018-12-08 | XMS | Encounter Summary ---
Demographics + + + | Address | [address] | | | [place] [address] | + + + | Home Phone [...] Team Providers + +------+ + | Care Workflow Developer Name | Role | Phone | + +------+ + | Sky Solis MD | PCP | | + +------+ + Encounter Details +--------+------+ + + + | Date | Type | Department | Care Team | Description | +--------+------+ + + + | 03/23/ | Lab | Laboratory at [facility] | | Mixed | | 2018 | | [address] | | hyperlipidemia; | | | | [place], [place] | | Controlled type 2 | | | | [address] | | diabetes mellitus | | | | [phone] | | without | | | | [...] | | | | | Myalgia | +--------+------+ + + + Social History [...] | + +--------+ + + + | C-REACTIVE PROTEIN, | Routin | 03/23/2017 | Mixed | Results for this | | HIGH SENSITIVITY | e | 1:28 PM | hyperlipidemia | procedure are in the | | | | PST | Controlled type 2 | results section. | | | | | diabetes mellitus | | | | | | without | | | | | | complication, | | | | | | without long-term | | | | | | current use of | | | | | | insulin (HCC) | | | | | | Acquired | | | | | | hypothyroidism | | | | | | Metabolic syndrome | | + +--------+ + + + | LIPID LAB - LIPID | Routin | 03/23/2017 | Mixed | Results for this | | PROFILE - PLASMA | e | 1:28 PM | hyperlipidemia | procedure are in the | | LIPIDS, HDL AND LDL | | PST | Controlled type 2 | results section. | | | | | diabetes mellitus | | | | | | without | | | | | | complication, | | | | | | without long-term | | | | | | current use of | | | | | | insulin (HCC) | | | | | | Metabolic syndrome | | + +--------+ + + + | COMPLETE METABOLIC | Routin | 03/23/2017 | Mixed | Results for this | | SET | e | 1:28 PM | hyperlipidemia | procedure are in the | | (NA,K,CL,CO2,BUN,CRE | | PST | Controlled type 2 | results section. | | AT,GLUC,CA,AST,ALT,B | | | diabetes mellitus | | | IGGY TOTAL,ALK | | | without | | | PHOS,ALB,PROT TOTAL) | | | complication, | | | | | | without long-term | | | | | | current use of | | | | | | insulin (HCC) | | | | | | Acquired | | | | | | hypothyroidism | | | | | | Metabolic syndrome | | + +--------+ + + + | RHEUMATOID FACTOR, | Routin | 03/23/2017 | Myalgia | Results for this | | SERUM | e | 1:28 PM | | procedure are in the | | | | PST | | results section. | + +--------+ + + + | TSH | Routin | 03/23/2017 | Controlled type 2 | Results for this | | | e | 1:28 PM | diabetes mellitus | procedure are in the | | | | PST | without | results section. | | | | | complication, | | | | | | without long-term | | | | | | current use of | | | | | | insulin (HCC) | | | | | | Acquired | | | | | | hypothyroidism | | + +--------+ + + + | HEMOGLOBIN A1C, | Routin | 03/23/2017 | Controlled type 2 | Results for this | | BLOOD | e | 1:28 PM | diabetes mellitus | procedure are in the | | | | PST | without | results section. | | | | | complication, | | | | | | without long-term | | | | | | current use of | | | | | | insulin (HCC) | | + +--------+ + + + | CK, PLASMA | Routin | 03/23/2017 | Controlled type 2 | Results for this | | | e | 1:28 PM | diabetes mellitus | procedure are in the | | | | PST | without | results section. | | | | | complication, | | | | | | without long-term | | | | | | current use of | | | | | | insulin (HCC) | | | | | | Acquired | | | | | | hypothyroidism | | | | | | Metabolic syndrome | | | | | | Myalgia | | + +--------+ + + + documented in this encounter Results TSH (03/23/2017 1:28 PM [...] [facility] | [address] | [place] [address] | | | LISA, NELDA | [address] | | | + [...] + | [facility] | [address] | [place] [address] | | | [facility] | | | | + + + [...] | + + + + + | [facility] | [address] | [place] [address] | | | SERVICES, CORE | [address] [...] [facility] | [address] | [place], [place] | | | SERVICES, LIPID | [address] | [address] | | + + + + + [...] | + + + + + | [facility] | [address] | [place], [place] | | | SERVICES, LIPID | [address] | [address] | | + + + + + [...] | [facility] | | considered for monitoring mcc glycemic control in patients with: | LABORATORY [...] | + + + + + | [facility] | [address] | [place] [address] | | | SERVICES, SPECIAL | [address] [...] | | | LABORATORY | | | SA[address]OME[address] | | | SERVICES, | | | [...] | Adult glucose reference range change effective 7-17. GFR is | [facility] | | estimated using the MDRD equation recommended by the National Kidney | LABORATORY | | Disease Education Program. Estimated GFR Interpretive Information: | LISA, NELDA | | <60 mL/min/1.73 sq m Chronic [...] | + + + + + | [facility] | [address] | [place] [address] | | | NELDA GONZALEZ | [address] | | | + + + + + documented in this encounter Visit Diagnoses + + | Diagnosis | + + | Mixed hyperlipidemia | + + | Controlled type 2 diabetes mellitus without complication, without long-term current | | use of insulin (HCC) | + + | Acquired hypothyroidism Unspecified hypothyroidism | + + | Metabolic syndrome Dysmetabolic Syndrome X | + + | Myalgia Mylagia and myositis, unspecified | + + documented in this encounter"
--- OUTSIDE RECORDS SUMMARY | ~2018-12-08 | XMS | Encounter Summary ---
Demographics + + + | Address | [address] | | | [place] [address] | + + + | Home Phone | | + + + | Preferred Language | Unknown | + + + | Marital Status | Single | + + + | Evangelical Affiliation | Unknown | + + + | Race | White | + + + | Ethnic Group | Not or | + + + Author + + + | Author | [facility] | + + + | Organization | [facility] | + + + | Address | Unknown | + + + | Phone | Unavailable | + + + Support + + +---------+ + | Name | Relationship | Address | Phone | + + +---------+ + | Fanny Baez | ECON | Unknown | | + + +---------+ + Care Team Providers + +------+ + | Care Hydraulic Lift Operator Name | Role | Phone | + +------+ + | Sky Solis MD | PCP | | + +------+ + Reason for Visit + + + | Reason | Comments | + + + | Refill Request | | + + + Encounter Details +--------+--------+ + + + | Date | Type | Department | Care Team | Description | +--------+--------+ + + + | 08/21/ | Refill | Cardiology | Tani Soriano MD | Refill Request | | 2014 | | Preventive at [facility] | [address] | | | | | [address] | [place], [place] | | | | | Mailcode: CH9A | [address] | | | | | [facility] | [phone] | | | | | and [address], | | | | | | [address] | | | | | | [place], [place] | | | | | | [address] | | | | | | [phone] | | | +--------+--------+ + + + [...]
--- OUTSIDE RECORDS SUMMARY | ~2018-12-08 | XMS | Encounter Summary ---
Demographics + + + | Address | [address] | | | [place] [address] | + + + | Home Phone | | + + + | Preferred Language | Unknown | + + + | Marital Status | Single | + + + | Jewish Affiliation | Unknown | + + + | Race | White | + + + | Ethnic Group | Not or | + + + Author + + + | Author | [facility] | + + + | Organization | [facility] | + + + | Address | Unknown | + + + | Phone | Unavailable | + + + Support + + +---------+ + | Name | Relationship | Address | Phone | + + +---------+ + | Fanny Baez | ECON | Unknown | | + + +---------+ + Care Team Providers + +------+ + | Care Sap Security Architect Name | Role | Phone | + +------+ + | Sky Solis MD | PCP | | + +------+ + Encounter Details +--------+ + + + + | Date | Type | Department | Care Team | Description | +--------+ + + + + | 12/04/ | Abstract | Cardiology | Tani Soriano MD | | | 2017 | | Preventive at [facility] | [address] | | | | | [address] | [place], [place] | | | | | Mailcode: CH9A | [address] | | | | | [facility] | [phone] | | | | | and [address], | | | | | | [address] | | | | | | [place], [place] | | | | | | [address] | | | | | | [phone] | | | +--------+ + + + [...]
--- OUTSIDE RECORDS SUMMARY | ~2018-12-08 | XMS | Encounter Summary ---
Demographics + + + | Address | [address] | | | [place] [address] | + + + | Home Phone | | + + + | Preferred Language | Unknown | + + + | Marital Status | Single | + + + | Religion Affiliation | Unknown | + + + | Race | White | + + + | Ethnic Group | Not or | + + + Author + + + | Author | [facility] | + + + | Organization | [facility] | + + + | Address | Unknown | + + + | Phone | Unavailable | + + + Support + + +---------+ + | Name | Relationship | Address | Phone | + + +---------+ + | Fanny Baez | ECON | Unknown | | + + +---------+ + Care Team Providers + +------+ + | Care Child Development Assistant Name | Role | Phone | + +------+ + | Sky Solis MD | PCP | | + +------+ + Encounter Details +--------+ + + + + | Date | Type | Department | Care Team | Description | +--------+ + + + + | 03/07/ | Abstract | Digestive Health | Clinic, Surgery | | | 2018 | | [place] [facility] [address] | | | | | | [address] | | | | | | Mailcode: [place] | | | | | | for Health and | | | | | | Healing, [address] | | | | | | [place], [place] | | | | | | [address] | | | | | | [phone] | | | +--------+ + + + [...]
--- OUTSIDE RECORDS SUMMARY | ~2018-12-08 | XMS | Encounter Summary ---
Demographics + + + | Address | [address] | | | [place] [address] | + + + | Home Phone [...] Team Providers + +------+ + | Care Journeyman Wireman Name | Role | Phone | + [...] CONSULT TO | [place], [place] | [facility], | | | | | CAR | [address] | [place] | | | | | PREVENTATIVE | Phone: | [phone] | | | | | [facility] - | [phone] | | | | | | LIPIDS | Fax: | | | | | | | [phone] | | +--------+--------+ + + + + Encounter Details +--------+---------+ + + + | Date | Type | Department | Care Team | Description | +--------+---------+ + + + | 05/18/ | Office | Cardiology | Rivka Caro, | Morbid obesity with | | 2016 | Visit | Preventive at [facility] | [address] | BMI of 50.0-59.9, | | | | [address] | [address] | adult (HCC) (Primary | | | | Mailcode: CH9A | [place], [place] | Dx); | | | | [facility] [place] [facility] | [address] | Hyperlipidemia, | | | | and Healing, | | unspecified | | | | [address] | | hyperlipidemia type | | | | [place], [place] | | | | | | [address] | | | | | | [phone] | | | +--------+---------+ + + + [...] might be different fro m the original. [facility] of Preventive Cardiology, Nutrition Consultation Referring Provider: Dr. 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 Contact information was provided; call or send StudyEgg message to dietitian with any questions. Rivka [...]
--- OUTSIDE RECORDS SUMMARY | ~2018-12-08 | XMS | Encounter Summary ---
Demographics + + + | Address | [address] | | | [place] [address] | + + + | Home Phone | | + + + | Preferred Language | Unknown | + + + | Marital Status | Single | + + + | Mandaeism Affiliation | Unknown | + + + | Race | White | + + + | Ethnic Group | Not or | + + + Author + + + | Author | [facility] | + + + | Organization | [facility] | + + + | Address | Unknown | + + + | Phone | Unavailable | + + + Support + + +---------+ + | Name | Relationship | Address | Phone | + + +---------+ + | Fanny Baez | ECON | Unknown | | + + +---------+ + Care Team Providers + +------+ + | Care Professor Of Nursing Name | Role | Phone | + +------+ + | Sky Solis MD | PCP | | + +------+ + Encounter Details +--------+ + + + + | Date | Type | Department | Care Team | Description | +--------+ + + + + | 06/22/ | Abstract | Cardiology | Tani Soriano MD | | | 2016 | | Preventive at [facility] | [address] | | | | | [address] | [place], [place] | | | | | Mailcode: CH9A | [address] | | | | | [facility] | [phone] | | | | | and [address], | | | | | | [address] | | | | | | [place], [place] | | | | | | [address] | | | | | | [phone] | | | +--------+ + + + [...]
--- OUTSIDE RECORDS SUMMARY | ~2018-12-08 | XMS | Encounter Summary ---
Demographics + + + | Address | [address] | | | [place] [address] | + + + | Home Phone [...] Author + + + | Author | [facility] | + + + | Organization | [facility] | + + + | Address | Unknown | + + + | Phone | Unavailable | + + + Support + + +---------+ + | Name | Relationship | Address | Phone | + + +---------+ + | Fanny Baez | ECON | Unknown | | + + +---------+ + Care Team Providers + +------+ + | Care Electrical Tester Name | Role | Phone | + +------+ + | Sky Solis MD | PCP | | + +------+ + Encounter Details +--------+ + + + + | Date | Type | Department | Care Team | Description | +--------+ + + + + | 03/25/ | MyChart | Cardiology | Tani Soriano MD | RE: Blood Test | | 2015 | Encounter | Preventive at [facility] | [address] | | | | | [address] | [place], [place] | | | | | Mailcode: CH9A | [address] | | | | | [facility] | [phone] | | | | | and [place], | | | | | | [address] | | | | | | [place], [place] | | | | | | [address] | | | | | | [phone] | | | +--------+ + + + [...]
--- OUTSIDE RECORDS SUMMARY | ~2018-12-08 | XMS | Encounter Summary ---
Demographics + + + | Address | [address] | | | [place] [address] | + + + | Home Phone | | + + + | Preferred Language | Unknown | + + + | Marital Status | Single | + + + | Latter-Day Affiliation | Unknown | + + + | Race | White | + + + | Ethnic Group | Not or | + + + Author + + + | Author | [facility] | + + + | Organization | [facility] | + + + | Address | Unknown | + + + | Phone | Unavailable | + + + Support + + +---------+ + | Name | Relationship | Address | Phone | + + +---------+ + | Fanny Baez | ECON | Unknown | | + + +---------+ + Care Team Providers + +------+ + | Care Psych Nurse Name | Role | Phone | + [...] | | | | | INTERNAL | [place], [place] | | | | | lipoprotein( | MEDICINE | [address] | | | | | a) | [address] | Phone: | | | | | Hypothyroidi | [address] | [phone] | | | | | sm | [address] | Fax: | | | | | Metabolic | [place], | [phone] | | | | | syndrome | [place] [address] | | | | | | Procedures | Phone: | | | | | | CONSULT TO | [phone] | | | | | | CARDIOLOGY | Fax: | | | | | | | [phone] | | +--------+--------+ + + + + Encounter Details +--------+---------+ + + + | Date | Type | Department | Care Team | Description | +--------+---------+ + + + | 06/27/ | Office | Cardiology | Tani Soriano MD | Hyperlipidemia, | | 2017 | Visit | Preventive at [facility] | [address] | unspecified | | | | [address] | [place], [place] | hyperlipidemia type | | | | Mailcode: CH9A | [address] | (Primary Dx); Other | | | | [facility] | [phone] | specified | | | | and Healing, | | hypothyroidism; | | | | [address] | | Metabolic syndrome | | | | [place], [place] | | | | | | [address] | | | | | | [phone] | | | +--------+---------+ + + + [...] of this note might be different from [facility] original. She went to [place] for a couple of weeks and made dramatic dietary changes (e.g. no soda, sugar avoidance, etc.). Unfortunately, she injured her knee , which apparently was an aggr avation of 3 injuries sustained during the Winter falling on ice, so she has been having jairo n for 2-3 months. Her orthopedist thinks she has a torn meniscus. She has been going to [facility] pool 3 times weekly after having a [...] her insurance will not cover the p [facility] in about November docum ented in [...] | + + + + + | [facility] | [address] | [place] [address] | | | SERVICES, CORE | ILIR [...] glycated albumin should be considered for monitoring spool cleaner hand | LABORATORY | | glycemic control in [...] | + + + + + | [facility] | [address] | [place] [address] | | | SERVICES, SPECIAL | ILIR [...]
--- OUTSIDE RECORDS SUMMARY | ~2018-12-08 | XMS | Encounter Summary ---
Demographics + + + | Address | [address] | | | [place] [address] | + + + | Home Phone | | + + + | Preferred Language | Unknown | + + + | Marital Status | Single | + + + | Christianity Affiliation | Unknown | + + + | Race | White | + + + | Ethnic Group | Not or | + + + Author + + + | Author | [facility] | + + + | Organization | [facility] | + + + | Address | Unknown | + + + | Phone | Unavailable | + + + Support + + +---------+ + | Name | Relationship | Address | Phone | + + +---------+ + | Fanny Baez | ECON | Unknown | | + + +---------+ + Care Team Providers + +------+ + | Care Training Executive Name | Role | Phone | + +------+ + | Sky Solis MD | PCP | | + +------+ + Encounter Details +--------+------+ + + + | Date | Type | Department | Care Team | Description | +--------+------+ + + + | 03/23/ | Lab | Laboratory at [facility] | | Mixed | | 2018 | | [address] | | hyperlipidemia; | | | | [place], [place] | | Controlled type 2 | | | | [address] | | diabetes mellitus | | | | [phone] | | without | | | | [...] [facility] | [address] | [place] [address] | | | LISA, NELDA | ILIR [...] + | [facility] | [address] | [place] [address] | | | [facility] | | | | + + + [...] | + + + + + | [facility] | [address] | [place] [address] | | | SERVICES, CORE | ILIR [...] [facility] | [address] | [place], [place] | | | SERVICES, LIPID | [address] | [address] | | + + + + + [...] | + + + + + | [facility] | [address] | [place], [place] | | | SERVICES, LIPID | [address] | [address] | | + + + + + [...] | [facility] | | considered for monitoring intermediate glycemic control in patients with: | LABORATORY [...] | + + + + + | [facility] | [address] | [place] [address] | | | SERVICES, SPECIAL | [address] [...] | | | LABORATORY | | | SCOTTISH | | | SERVICES, | | | [...] | + + + + + | [facility] | [address] | [place] [address] | | | NELDA GONZALEZ | PARK [...]
--- OUTSIDE RECORDS SUMMARY | ~2018-12-08 | XMS | Encounter Summary ---
Demographics + + + | Address | [address] | | | [place] [address] | + + + | Home Phone | | + + + | Preferred Language | Unknown | + + + | Marital Status | Single | + + + | Confucianist Affiliation | Unknown | + + + [...] Team Providers + +------+ + | Care Mortgage Accounting Clerk Name | Role | Phone | [...] | Cardiology | Diagnoses | Irma, | [place], | | | | | | Sky | MD Tani | | | | | Hyperlipidem | MD Wilfredo | [address] | | | | | ia Elevated | [place] | Ave | | | | | | INTERNAL | [place], [place] | | | | | lipoprotein( | MEDICINE | [address] | | | | | a) | [address] | Phone: | | | | | Hypothyroidi | [address] | [phone] | | | | | sm | [address] | Fax: | | | | | Metabolic | [place], | [phone] | | | | | syndrome | [place] [address] | | | | | | Procedures | Phone: | | | | | | [place] EST | [phone] | | | | | | PATIENT | Fax: | | | | | | LEVEL V | [phone] | | +--------+--------+ + + + + Encounter Details +--------+---------+ + + + | Date | Type | Department | Care Team | Description | +--------+---------+ + + + | 10/24/ | Office | Cardiology | Tani Soriano MD | Hyperlipidemia, | | 2018 | Visit | Preventive at [facility] | [address] | unspecified | | | | [address] | [place], [place] | hyperlipidemia type | | | | Mailcode: CH9A | [address] | (Primary Dx); | | | | [facility] | [phone] | Elevated | | | | and Healing, | | lipoprotein(a); | | | | Building [address] | | Vitamin D | | | | [place], [place] | | deficiency; | | | | [address] | | Controlled type 2 | | | | [phone] | | diabetes mellitus | | | | | | without | | | | | | complication, | | | | | | without long-term | | | | | | current use of | | | | | | insulin (HCC) | +--------+---------+ + + + Social History [...] + + + documented in this encounter Patient Instructions Patient Instructions Brit Cooper MD - 10/24/2017 4:30 PM PDTYou were seen today for you r high cholesterol. You have had intolerances to atorvastatin (Lipitor), rosuvastatin (Crestor), and lovastatin (Altoprev). We will order pitavastatin to control your cholesterol. documented in this encounter Progress Notes Tani Soriano MD - 10/24/2017 4:30 PM PDTFormatting of this note might be different from th e original. LIPID DISORDERS CLINIC STAFF - Christie I have participated in hurst aspects of the review of records, patient interview and examinat ion, counseling, and formulation of the evaluation and treatment plan. I agree with documen tation by Dr. Cooper. Please see attached notes for full details of the visit. Will add pit avastatin. 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 Controlled type 2 diabetes mellitus without complication, without long-term current use of insulin ([facility]) Component Latest Ref Rng & Units 06/27/2016 03/23/2017 GLUCOSE, PLASMA 70 - 99 mg/dL 116 (H) 88 BUN, PLASMA (LAB) 6 - 20 mg/dL 25 (H) CREATININE PLASMA 0.60 - 1.10 mg/dL 0.67 EGFR >60 mL/min >60 SODIUM, PLASMA (LAB) 136 - 145 mmol/L 138 POTASSIUM, PLASMA 3.4 - 5.0 mmol/L 4.0 CHLORIDE, PLASMA 97 - 108 mmol/L 103 TOTAL CO2, PLASMA 21 - 32 mmol/L 30 CALCIUM, PLASMA 8.6 - 10.2 mg/dL 9.2 CALCIUM([place]) 8.6 - 10.2 mg/dL 9.4 BILIRUBIN TOTAL 0.3 - 1.2 mg/dL 0.5 T[address] PROTEIN, PL 6.4 - 8.2 g/dL 8.1 ALBUMIN, PLASMA (LAB) 3.5 - 4.7 g/dL 3.7 ALK PHOS 42 - 98 U/L 117 (H) AST(SGOT) <=41 U/L 47 (H) ALT (SGPT) <=60 U/L 52 ANION GAP 4 - 11 mmol/L 5 CHOLESTEROL (LAB) <220 mg/dl 179 VLDL CHOLESTEROL <=31 mg/dl 24 LDL CHOLEST <100 mg/dl 103 (H) HDL CHOLESTEROL >50 mg/dl 52 TOTAL TRIGLYCERIDE - LIPID LAB <150 mg/dl 121 NON-HDL CHOLESTEROL <=130 mg/dL 127 HEMOGLOBIN A1C <5.7 % 7.0 (H) 6.0 (H) hsCRP - LIPID LAB <=2.00 mg/L 16.62 (H) CK 38 - 234 U/L 36 (L) RHEUMATOID FACTOR <=14 IU/mL <10 TSH 0.50 - 5.07 mIU/L 1.75 Lab Results Component Value Date [id number] 33.1 09/16/2014 Kacey Soriano M.D. digital marketing analyst [facility] hu, MD Brit - 10/24/2017 4:30 PM PDT Preventive Cardiology Clinic Subjective Rebel Skinner is a 57 y.o. 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 She had gastric sleeve surgery 10/03/16 in [facility] on October 03. She is taking supplemental vitamin B12, calcium and a multivitamin, and is now taking Vitam in D3 2,000 units twice daily. Exercise: Pool walking and water weights for 1 hour about one day weekly. Diet: Has smoothies with vegetables in the morning, has yogurt with granola, has meat and p otatoes. Has difficulty with bloating from vegetables. Does not eat bread, pasta, rice. Drinks one glass of wine a week. She has no chest pain, chest pressure, chest discomfort, or exertional dyspnea. She has fagan d intermittent numbness in her left arm extending down to her thumb. She resumed treatment with lovastatin in late November 2016; had myalgias for 6 months. She had run out of it for 4 days, when the myalgias resolved completely. She had the statin refi lled, restarted it and myalgias restarted as well. She subsequently discontinued it 5 months prior to today's visit. She had tried Crestor and atorvastatin previously and had developed myalgias to them. She does not believe she has tried simvastatin. 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 Allergies Allergen Reactions Penicillin G Hives and Dyspnea Sulfa (Sulfonamide Antibiotics) Hives Current Medications Patient is Taking: Calcium Citrate Oral - Take 1 tablet by mouth three times daily. Cholecalciferol (vitamin D3) 2,000 Unit Tablet - Take 2,000 Units by mouth once daily. Desvenlafaxine Succinate Er 50 Mg Tablet,extended Release 24 Hr - Take 50 mg by mouth o nce daily. Iron 18 Mg Tablet - Take 18 mg by mouth two times daily. Plus 30 mg of vitamin C per pi ll Liothyronine 5 Mcg Tablet - Take 7.5 mcg by mouth once daily. Losartan 100 Mg Tablet - Take 100 mg by mouth once daily. Indications: hypertension Metoprolol Tartrate 50 Mg Tablet - Take 50 mg by mouth two times daily. Mometasone Furoate (bulk) Misc - Apply to affected area. Indications: aplly 1% cream t opically Multivitamin With Minerals Tablet - Take 1 tablet by mouth once daily. Omeprazole 20 Mg Capsule,delayed Release - Take 20 mg by mouth once daily. Prednisone 20 Mg Tablet - Take 20 mg by mouth once daily as needed (gout). Vitamin B Complex Oral - Take 1 tablet by mouth two times daily. Estradiol 0.01% (0.1 Mg/gram) Vaginal Cream - Insert 2 g vaginally once daily. Colchicine 0.6 Mg Tablet - Take 0.6 mg by mouth two times daily. Physical Exam BP 145/75 | Pulse 66 | Ht 1.575 m (5' 2") | Wt 112.9 kg (249 lb) | SpO2 96% | BMI 45.54 kg/ (m^2) Body mass index is 45.54 kg/m. Alert, NAD, mood WNL Skin mild [...] 115 VITAMIN D 25-OH 30-80 ng/mL 33.1 Results for SAMANTHA TANMAYLUPE ALLAN ( ) as of 10/24/2017 13:58 Ref. Range 03/23/2017 13:28 CHOLESTEROL (LAB) Latest Ref Range: <220 mg/dl 179 HDL CHOLESTEROL Latest Ref Range: >50 mg/dl 52 LDL CHOLEST Latest Ref Range: <100 mg/dl 103 (H) VLDL CHOLESTEROL Latest Ref Range: <=31 mg/dl 24 NON-HDL CHOLESTEROL Latest Ref Range: <=130 mg/dL 127 C-REACTIVE PRTN, HIGH SENS - LIPID LAB Latest Ref Range: <=2.00 mg/L 16.62 (H) TOTAL TRIGLYCERIDE - LIPID LAB Latest Ref Range: <150 mg/dl 121 06/18/2017 TSH 2.38 FT4 0.97 AST 33 ALT 33 Vit D25-OH 37 Glucose 93 Hgb 14.2 Hct 43.3 Assessment Rebel Skinner is a 57 y.o. female who has medical problems noted above. 1. Dyslipidemia: High Lp(a), but mostly acceptable LDL-C 80, HDL-C 49 and mildly elevated TG 173 in the past. An LDL-C concentration < 70 mg/dl may be preferable. Has had intoleranc es to atorvastatin, rosuvastatin, lovastatin. Will try pitavastatin. 2. Hypothyroidism: She has been biochemically euthyroid as of 03/2017. 3. HTN: BP is normal today 4. Metabolic syndrome: BMI was up to 63 kg/m2, but she has lost nearly 100lbs since then. 5. CARLENE: Prior sleep study in [place] apparently identified an AHI of 30 per hour. Repor ts improvement with sleeping since her sleeve gastrectomy. 6. Vitamin D deficiency: Currently on Vitamin D3 2,000units BID. 7. Myalgias: Unclear etiology but has temporal relationship to lovastatin. 8. Grief over losing her son 2 years ago. She is doing fairly well. Plan Will prescribe pitavastatin, Lipid labs and CMP in 7 weeks after pitavastatin initiation Continue taking vitamin D 2000 units BID. Continue F/U with her PCP in [facility] 4-5 months Brit Cooper Endocrinology Fellow This patient was seen and discussed with Dr. Cristopher Soriano, who agrees with the plan. documented in this enco unter Plan of Treatment + +------+--------+ + + | Name | Type | Priori | Associated Diagnoses | Order Schedule | | | | ty | | | + +------+--------+ + + | LIPID LAB - | Lab | Routin | Elevated | Expected: 11/11/2017 | | C-REACTIVE PROTEIN, | | e | lipoprotein(a) | (Approximate), | | HIGH SENSITIVITY | | | Hyperlipidemia, | Expires: 12/12/2018 | | | | | unspecified | | | | | | hyperlipidemia type | | + +------+--------+ + + documented as of this encounter Visit Diagnoses + + | Diagnosis | + + | Hyperlipidemia, unspecified hyperlipidemia type - Primary | + + | Elevated lipoprotein(a) Other disorders of lipoid metabolism | + + | Vitamin D deficiency | + + | Controlled type 2 diabetes mellitus without complication, without long-term current | | use of insulin (HCC) | + + documented in this encounter
--- OUTSIDE RECORDS SUMMARY | ~2018-12-08 | XMS | Encounter Summary ---
Demographics + + + | Address | [address] | | | [place] [address] | + + + | Home Phone [...] + + + | Author | [facility] | + + + | Organization | [facility] | + + + | Address | Unknown | + + + | Phone | Unavailable | + + + Support + + +---------+ + | Name | Relationship | Address | Phone | + + +---------+ + | Fanny Baez | ECON | Unknown | | + + +---------+ + Care Team Providers + +------+ + | Care Network Solutions Architect Name | Role | Phone | [...] | | | | [address] | [place], [place] | | | | | | [place], | [address] | | | | | | [place] [address] | Phone: | | | | | | Phone: | [phone] | | | | | | [phone] | Fax: | | | | | | Fax: | [phone] | | | | | | [phone] | | +--------+--------+ + + + + [...] | | | [facility] | [place], [place] | Hypothyroidism; | | | | [address] | [address] | Elevated | | | | [address] | [phone] | lipoprotein(a) 102 | | | | Physician's | | mg/dl; Metabolic | | | | Pavilion | | syndrome | | | | [facility] | | | | | | [place], [place] | | | | | | [address] | | | | | | [phone] | | | +--------+---------+ + + + [...] unit oral tablet Take 2,000 Units by [facility] once daily. Desvenlafaxine (PRISTIQ) 50 mg oral [...] 4 months (due to long distance from [place]) with F/U with her PCP in [place]ou [...]
--- OUTSIDE RECORDS SUMMARY | ~2018-12-08 | XMS | Encounter Summary ---
Demographics + + + | Address | [address] | | | [place] [address] | + + + | Home Phone | | + + + | Preferred Language | Unknown | + + + | Marital Status | Single | + + + | Yazidi Affiliation | Unknown | + + + [...] Team Providers + +------+ + | Care Roofer Apprentice Name | Role | Phone | + [...] | 2014 | Encounter | Preventive at [facility] | [address] | | | | | [address] | [place], [place] | | | | | Mailcode: CH9A | [address] | | | | | [facility] | [phone] | | | | | and Healing, | | | | | | [address] | | | | | | [place], [place] | | | | | | [address] | | | | | | [phone] | | | +--------+ + + + [...]
--- OUTSIDE RECORDS SUMMARY | ~2018-12-08 | XMS | Encounter Summary ---
Demographics + + + | Address | [address] | | | [place] [address] | + + + | Home Phone | | + + + | Preferred Language | Unknown | + + + | Marital Status | Single | + + + | Lutheran Affiliation | Unknown | + + + | Race | White | + + + | Ethnic Group | Not or | + + + Author + + + | Author | [facility] | + + + | Organization | [facility] | + + + | Address | Unknown | + + + | Phone | Unavailable | + + + Support + + +---------+ + | Name | Relationship | Address | Phone | + + +---------+ + | Fanny Baez | ECON | Unknown | | + + +---------+ + Care Team Providers + +------+ + | Care Application Counselor Name | Role | Phone | + [...] | | Hyperlipidem | MD Wilfredo | [address] | | | | | ia Elevated | [place] | Ave | | | | | | INTERNAL | [place], [place] | | | | | lipoprotein( | MEDICINE | [address] | | | | | a) | [address] | Phone: | | | | | Hypothyroidi | [address] | [phone] | | | | | sm | [address] | Fax: | | | | | Metabolic | [place], | [phone] | | | | | syndrome | [place] [address] | | | | | | Procedures | Phone: | | | | | | [place] EST | [phone] | | | | | | PATIENT | Fax: | | | | | | LEVEL V | [phone] | | +--------+--------+ + + + + Encounter Details +--------+---------+ + + + | Date | Type | Department | Care Team | Description | +--------+---------+ + + + | 10/24/ | Office | Cardiology | Tani Soriano MD | Hyperlipidemia, | | 2018 | Visit | Preventive at [facility] | [address] | unspecified | | | | [address] | [place], [place] | hyperlipidemia type | | | | Mailcode: CH9A | [address] | (Primary Dx); | | | | [facility] | [phone] | Elevated | | | | and Healing, | | lipoprotein(a); | | | | [address] | | Vitamin D | | | | [place], [place] | | deficiency; | | | | [address] | | Controlled type 2 | | | | [phone] | | diabetes mellitus | | | [...] (obstructive sleep apnea) - sleep study in [place] AHI of 30 per hour. Controlled type 2 diabetes mellitus without complication, without long-term current use of insulin ([facility]) Component Latest Ref Rng & Units 06/27/2016 [...] mIU/L 1.75 Lab Results Component Value Date [id number] 33.1 09/16/2014 Kacey Soriano M.D. zoo keeper [facility] hu, MD Brit - 10/24/2017 4:30 PM PDT Preventive Cardiology Clinic Subjective Rebel Skinner is a 57 y.o. 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 She had gastric sleeve surgery 10/03/16 in [facility] on October 03. 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 Allergies Allergen [...] then. 5. CARLENE: Prior sleep study in [place] apparently identified an AHI of 30 per [...] BID. Continue F/U with her PCP in [facility] 4-5 months Brit Cooper Endocrinology [...]
--- OUTSIDE RECORDS SUMMARY | ~2018-12-08 | XMS | Encounter Summary ---
Demographics + + + | Address | [address] | | | [place] [address] | + + + | Home Phone | | + + + | Preferred Language | Unknown | + + + | Marital Status | Single | + + + | Adventism Affiliation | Unknown | + + + [...] Team Providers + +------+ + | Care Solar Hot Water Installer Name | Role | Phone | + [...] Hyperlipidem | [address] | [address] | | | | | ia, | Ave | [address] | | | | | unspecified | [place], [place] | Rd [place], | | | | | hyperlipidem | [address] | [place] | | | | | ia type | Phone: | [phone] | | | | | Elevated | [phone] | | | | | | lipoprotein( | Fax: | | | | | | a) | [phone] | | | | | | Metabolic [...] Description | +--------+---------+ + + + | 02/07/ | Office | Cardiology | Rivka Caro, | Morbid obesity with | | 2017 | Visit | Preventive at [facility] | [address] | BMI of 50.0-59.9, | | | | [address] | [address] | adult (HCC) (Primary | | | | Mailcode: CH9A | [place], [place] | Dx); | | | | [facility] | [address] | Hyperlipidemia, | | | | and Healing, | | unspecified | | | | Building [address] | | hyperlipidemia type | | | | [place], [place] | | | | | | [address] | | | | | | [phone] | | | +--------+---------+ + + + [...] + + + + | Weight | 116.6 kg (257 lb) | 02/07/2017 11:28 AM | | | | | PST | | + + + + + | Height | 157.5 cm (5' 2") | 02/07/2017 11:28 AM | | | | | PST | | + + + + + | Body Mass Index | 47.01 | 02/07/2017 11:28 AM | | | | | PST | | + + + + + documented in this encounter Patient Instructions Patient Instructions Rivka Caor RD - 02/07/2017 11:35 AM PST documented in this encounter Progress Notes Rivka Caro RD - 02/07/2017 11:35 AM PSTFormatting of this note might be different fro m the original. [facility] Center of Preventive Cardiology, Nutrition Consultation Referring provider: Dr. Cristopher Soriano MD Referring diagnosis: obesity w/ recent gastric sleeve (in [place] - received no education) Visit type: Follow-up; bdpb-[id number] visit with patient Questions/Information desired today: Feeling pretty good. Has struggled w/ gout flares sinc e surgery. Confused about what to eat & how many calories/protein to get. Has lost a lot of hair. Struggling to eat slowly. ASSESSMENT MEDICAL HISTORY Patient Active Problem List Diagnosis Morbid obesity with BMI of 50.0-59.9, adult ([facility]) Hyperlipidemia Vitamin D deficiency Hypothyroidism Elevated lipoprotein(a) 102 mg/dl Metabolic syndrome CARLENE (obstructive sleep apnea) - sleep study in [place] AHI of 30 per hour. Controlled type 2 diabetes mellitus without complication, without long-term current use of insulin ([facility]) - Obesity s/p bariatric sleeve 10/03/2016 in [place] FOOD AND NUTRITION HISTORY Food Allergies/Intolerances: eggs - vomiting (since surgery; ok w/ egg whites) GI symptoms: none regularly Current diet: bariatric stage 4 Typical food intake: 24-hr recall B: Green smoothie: V8 green fusion (6-8 oz/ 8 oz = 60 kcal & 11 g sugar), spinach (2 cups), 1/4 c yogurt (Danish, vanilla light) L: Hormel small plates protein (meat/cheese) S: Andino protein bar D: Hormel small plates protein Fluids: water (aims for 32 oz/d) - from meals by 30 min Physical activity: had been limited d/t gout & knee problem. Joined a gym 2 weeks ago - has been working out in the pool w18 yo granddaughter; goal is 3x/wk. Vitamins/Minerals/Herbal Supplements: all chewable - vit D, multivitamin/mineral (bariatric ), vitamin C, tart zepeda, B12 (gummy) Pertinent Medications: See [employer] medications for complete list. ANTHROPOMETRICS: Height: Ht Readings from Last 1 Encounters: 02/07/17 1.575 m (5' 2") Weight: Wt Readings from Last 1 Encounters: 02/07/17 116.6 kg (257 lb) 11/28/16 127.007 kg (280 lb) 06/27/16 151.501 kg (334 lb) 05/19/15 143.79 kg (317 lb) 05/12/14 137.803 kg (303 lb 13 oz) Body mass index is 47.01 kg/m. Weight change since surgery: 77 lb weight loss Waist Circumference: n/a NUTRITION DIAGNOSIS Nutrition-related knowledge deficit related to recent bariatric surgery as evidenced by no pre- or post-surgery diet education & patient with questions re: appropriate diet. Has been following an appropriate diet due to her own research, but she has found conflicting info at times. Is meeting protein goals; fluid intake inadequate; tolerating foods well. INTERVENTION Education provided: Post-bariatric diet guidelines, including vitamin/mineral supplementati on, protein & fluid goals, mindful eating, meal planning, & behavior modifications. [facility] ed patient to establish care / [facility] bariatric department to monitor progress & labs (provid ed contact info). Recommended website for bariatric recipes. Handout(s) provided: Post-bariatric stage 4 guidelines, long-term guidelines, sample menus & meal/snack recommendations Patient's Comprehension: Receptive Stage of change: Action Barrier(s) to education: No Anticipated compliance: Good - has done a lot of research on bariatric surgery and is follo wing an appropriate diet despite having no post-surgery education (due to materials being pr ovided in Hungarian, which she does not speak/read) MONITORING AND EVALUATION Plan: Follow stage 4 according to bariatric diet guidelines -Continue to eat protein foods first; stop eating as soon as you begin to feel full -Choose foods with < 14 g sugar & < 5 g fat per serving -Continue fluids from meals by 30 minutes before & after Continue vitamin & mineral supplementation per post-bariatric surgery guidelines -complete multivitamin & mineral (with iron) supplement, 2/day -add 0325-9586 mg calcium citrate with vitamin D/day (take in divided doses, not within 2 hours of multivitamin or iron supplement) -500 mcg/day sublingual B12 supplement (or monthly injections) PATIENT GOALS: 1. D/c fruit juice in smoothie; switch to skim milk 2. Add calcium supplement (per above recs) 3. Continue regular physical activity 4. Continue to increase intake of non-starchy vegetables and fruit (once protein needs are met) Contact information was provided; call or send [employer] message to dietitian with any questi ons. Rivka Caro RD, LD documented in this en counter Plan of Treatment Not on filedocumented as of this encounter Visit Diagnoses + + | Diagnosis | + + | Morbid obesity with BMI of 50.0-59.9, adult (HCC) - Primary | + + | Hyperlipidemia, unspecified hyperlipidemia type | + + documented in this encounter
--- OUTSIDE RECORDS SUMMARY | ~2018-12-08 | XMS | Encounter Summary ---
Demographics + + + | Address | [address] | | | [place] [address] | + + + | Home Phone [...] + + + | Author | [facility] | + + + | Organization | [facility] | + + + | Address | Unknown | + + + | Phone | Unavailable | + + + Support + + +---------+ + | Name | Relationship | Address | Phone | + + +---------+ + | Fanny Baez | ECON | Unknown | | + + +---------+ + Care Team Providers + +------+ + | Care Shotgun Shell Assembly Machine Adjuster Name | Role | Phone | + +------+ + | Sky Solis MD | PCP | | + +------+ + Encounter Details +--------+ + + + + | Date | Type | Department | Care Team | Description | +--------+ + + + + | 06/17/ | Documentati | Mick Dyer | [facility], | | | 2013 | on | Diabetes Health | Endocrinology | | | | | Psychiatric | | | | | | Pavilion [address] | | | [address] | | | | | | Physician's | | | | | | Pavilion | | | | | | Physician's Pavilion | | | | | | [place], [place] | | | | | | [address] | | | | | | [phone] | | | +--------+ + + + [...]
--- OUTSIDE RECORDS SUMMARY | ~2018-12-08 | XMS | Clinical Summary ---
Demographics + + + | Address | [address] | | | [place] [address] | + + + | Home Phone [...] Author + + + | Author | [facility] | + + + | Organization | [facility] | + + + | Address | Unknown | + + + | Phone | Unavailable | + + + Support + + +---------+ + | Name | Relationship | Address | Phone | + + +---------+ + | Fanny Baez | ECON | Unknown | | + + +---------+ + Care Team Providers + +------+ + | Care Unemployment Specialist Name | Role | Phone | + +------+ + | Irina Brooks | PCP | | + +------+ + Source Comments JOHN PAUL is fully live on both EpicCare Ambulatory and EpicCare InPatient.[facility] Allergies + + + + + + [...] (obstructive sleep apnea) - sleep study in [place] AHI of | 05/23/2015 | | 30 [...] | MODA | [phone] | 07/07/19 | [phone] | [address] | [address] | | | [place] | | 12-Pre | 4 | [id number] | | | | [place] | | sent | | [place], | | | | | | | | [place] [address] | | +-------+--------+ +--------+ + +------+ + [...] | 1961 | [phone] | [place] [address] | | | vicky | | | 3 (Home) | | + +--------+ +--------+ + +
--- OUTSIDE RECORDS SUMMARY | ~2018-12-08 | XMS | Encounter Summary ---
Demographics + + + | Address | [address] | | | [place] [address] | + + + | Home Phone [...] + + + | Author | [facility] | + + + | Organization | [facility] | + + + | Address | Unknown | + + + | Phone | Unavailable | + + + Support + + +---------+ + | Name | Relationship | Address | Phone | + + +---------+ + | Fanny Baez | ECON | Unknown | | + + +---------+ + Care Team Providers + +------+ + | Care Life Skills Trainer Name | Role | Phone | + [...] deficiency; Morbid | | | | [address] | | obesity with BMI of | | | | [address] [place], | | 50.0-59.9, adult | | | | [place] [address] | | ([facility]); | | | | [phone] | | Hyperlipidemia | +--------+------+ + + [...] [facility] | [address] | [place] [address] | | | SERVICES, CORE | PARK [...] | + + + + + | [facility] | [address] | [place] [address] | | | SERVICES, CORE | PARK [...] - INTFC | | | | [place], [place] [address] | | | | | | [phone]. | | | | | | Prakash [...] [facility] | [address] | [place], [place] | | | UNIV PTH - INTFC | | [address] | | + + + + + [...] | [facility] | [address] [facility] | [place] [address] | | | SERVICES, CORE | ILIR [...] | | | LABORATORY | | | [place] | | | SERVICES, | | | [...] [facility] | [address] | [place] [address] | | | SERVICES, CORE | PARK [...] [facility] | [address] | [place] [address] | | | SERVICES, SPECIAL | PARK [...] + + | Test now performed at [facility]. New method effective 12/18/12. | [facility] | | | LABORATORY | | | SERVICES, CORE | + + + + + + + + | Performing | Address | City/State/Zipcode | Phone Number | | Organization | | | | + + + + + | [facility] | [address] | [place] [address] | | | SERVICES, CORE | PARK [...] | + + + + + | [facility] | [address] | [place] [address] | | | SERVICES, CORE | ILIR [...]
--- OUTSIDE RECORDS SUMMARY | ~2018-12-08 | XMS | Clinical Summary ---
Demographics + + + | Address | [address] | | | [place] [address] | + + + | Home Phone | | + + + | Preferred Language | Unknown | + + + | Marital Status | Single | + + + | Adventist Affiliation | Unknown | + + + | Race | Unknown | + + + | Ethnic Group | Unknown | + + + Author + + + | Author | [facility] | | | and Darianana | + + + | Organization | [facility] | | | and Darianana [...] Team Providers + +------+ + | Care Nanoscience Technician Name | Role | Phone | [...] + +------+ | MODA | MODA | [id number] | 07/07/19 | [phone] | [address] | PPO | | | [employer] | | 12-Pre | 9 | [address] | | | | [place] | | sent | | [place], | | | | [place] | | | | [place] [address] | | +-------+--------+ +--------+ + +------+ + [...] | 1961 | [phone] | [place] [address] | | | vicky | | | 3 (Home) | | + +--------+ +--------+ + + Advance Directives Patient has advance care planning documents on file. For more information, please contact:[facility] [place] [address]"
--- OUTSIDE RECORDS SUMMARY | ~2018-12-08 | XMS | Encounter Summary ---
Demographics + + + | Address | [address] | | | [place] [address] | + + + | Home Phone | | + + + | Preferred Language | Unknown | + + + | Marital Status | Single | + + + | Muslim Affiliation | Unknown | + + + | Race | White | + + + | Ethnic Group | Not or | + + + Author + + + | Author | [facility] | + + + | Organization | [facility] | + + + | Address | Unknown | + + + | Phone | Unavailable | + + + Support + + +---------+ + | Name | Relationship | Address | Phone | + + +---------+ + | Fanny Baez | ECON | Unknown | | + + +---------+ + Care Team Providers + +------+ + | Care Religious Education Director Name | Role | Phone | [...] | 2015 | Encounter | Preventive at [facility] | [address] | | | | | [address] | [place], [place] | | | | | Mailcode: CH9A | [address] | | | | | [facility] | [phone] | | | | | and [address], | | | | | | Building [address] | | | | | | [place], [place] | | | | | | [address] | | | | | | [phone] | | | +--------+ + + + [...]
--- OUTSIDE RECORDS SUMMARY | ~2018-12-08 | XMS | Encounter Summary ---
Demographics + + + | Address | [address] | | | [place] [address] | + + + | Home Phone [...] + + + | Author | [facility] | + + + | Organization | [facility] | + + + | Address | Unknown | + + + | Phone | Unavailable | + + + Support + + +---------+ + | Name | Relationship | Address | Phone | + + +---------+ + | Fanny Baez | ECON | Unknown | | + + +---------+ + Care Team Providers + +------+ + | Care Dietitian Therapeutic Name | Role | Phone | + [...] | | | | | INTERNAL | [place], [place] | | | | | lipoprotein( | MEDICINE | [address] | | | | | a) | [address] | Phone: | | | | | Hypothyroidi | [address] | [phone] | | | | | sm | [address] | Fax: | | | | | Metabolic | [place], | [phone] | | | | | syndrome | [place] [address] | | | | | | Procedures | Phone: | | | | | | CONSULT TO | [phone] | | | | | | CARDIOLOGY | Fax: | | | | | | | [phone] | | +--------+--------+ + + + + Encounter Details +--------+---------+ + + + | Date | Type | Department | Care Team | Description | +--------+---------+ + + + | 09/21/ | Office | Cardiology | Tani Soriano MD | Hyperlipidemia, | | 2016 | Visit | Preventive at [facility] | [address] | unspecified | | | | [address] | [place], [place] | hyperlipidemia type | | | | Mailcode: CH9A | [address] | (Primary Dx); Other | | | | [facility] | [phone] | specified | | | | and Healing, | | hypothyroidism; | | | | Building [address] | | Elevated | | | | [place], [place] | | lipoprotein(a) 102 | | | | [address] | | mg/dl; Metabolic | | | | [phone] | | syndrome | +--------+---------+ + + [...] Her dog a few weeks ago. Her eskizyvl-ka-pmu is not wesley ing her see her grandchildren, the children of her son who earlier this year. Exercise : Walking in the swimming pool 2-3 times weekly with her 17 yo granddaughter. No chest pain , chest pressure, chest discomfort, or exertional dyspnea. She also joined the local gym in [place]. Her BP at home has been about [...]
--- OUTSIDE RECORDS SUMMARY | ~2018-12-08 | XMS | Encounter Summary ---
Demographics + + + | Address | [address] | | | [place] [address] | + + + | Home Phone [...] + + + | Author | [facility] | + + + | Organization | [facility] | + + + | Address | Unknown | + + + | Phone | Unavailable | + + + Support + + +---------+ + | Name | Relationship | Address | Phone | + + +---------+ + | Fanny Baez | ECON | Unknown | | + + +---------+ + Care Team Providers + +------+ + | Care Woodworking Machine Setter Name | Role | Phone | [...] | | 2016 | | Preventive at [facility] | [address] | ([facility] | | | | [address] | [place], [place] | 37.5mg) | | | | Mailcode: CH9A | [address] | | | | | [facility] | [phone] | | | | | and Healing, | | | | | | Building [address] | | | | | | [place], [place] | | | | | | [address] | | | | | | [phone] | | | +--------+--------+ + + + [...]
--- OUTSIDE RECORDS SUMMARY | ~2018-12-08 | XMS | Encounter Summary ---
Demographics + + + | Address | [address] | | | [place] [address] | + + + | Home Phone [...] + + + | Author | [facility] | + + + | Organization | [facility] | + + + | Address | Unknown | + + + | Phone | Unavailable | + + + Support + + +---------+ + | Name | Relationship | Address | Phone | + + +---------+ + | Fanny Baez | ECON | Unknown | | + + +---------+ + Care Team Providers + +------+ + | Care Waiter/Waitress Tavern Name | Role | Phone | + [...] | 2017 | Encounter | Preventive at [facility] | [address] | | | | | [address] | [place], [place] | | | | | Mailcode: CH9A | [address] | | | | | [facility] | [phone] | | | | | and Healing, | | | | | | [address] | | | | | | [place], [place] | | | | | | [address] | | | | | | [phone] | | | +--------+ + + + [...]
--- OUTSIDE RECORDS SUMMARY | ~2018-12-08 | XMS | Encounter Summary ---
Demographics + + + | Address | [address] | | | [place] [address] | + + + | Home Phone [...] Author + + + | Author | [facility] | + + + | Organization | [facility] | + + + | Address | Unknown | + + + | Phone | Unavailable | + + + Support + + +---------+ + | Name | Relationship | Address | Phone | + + +---------+ + | Fanny Baez | ECON | Unknown | | + + +---------+ + Care Team Providers + +------+ + | Care Electrical Tests Supervisor Name | Role | Phone | + +------+ + | Sky oSlis MD | PCP | | + +------+ + Encounter Details +--------+ + + + + | Date | Type | Department | Care Team | Description | +--------+ + + + + | 05/22/ | Abstract | Cardiology | Tani Soriano MD | | | 2015 | | Preventive at [facility] | [address] | | | | | [address] | [place], [place] | | | | | Mailcode: CH9A | [address] | | | | | [facility] | [phone] | | | | | and [address], | | | | | | [address] | | | | | | [place], [place] | | | | | | [address] | | | | | | [phone] | | | +--------+ + + + [...]
--- OUTSIDE RECORDS SUMMARY | ~2018-12-08 | XMS | Encounter Summary ---
Demographics + + + | Address | [address] | | | [place] [address] | + + + | Home Phone [...] Team Providers + +------+ + | Care Associate Director Qa Name | Role | Phone | + [...] | | | | | unspecified | [place], [place] | Rd [place], | | | | | hyperlipidem | [address] | [place] | | | | | ia type | Phone: | [phone] | | | | | Elevated | [phone] | | | | | | lipoprotein( | Fax: | | | | | | a) | [phone] | | | | | | Metabolic [...] | 2017 | Visit | Preventive at [facility] | [address] | BMI of 50.0-59.9, | | | | [address] | [address] | adult (HCC) (Primary | | | | Mailcode: CH9A | [place], [place] | Dx); | | | | [facility] | [address] | Hyperlipidemia, | | | | and Healing, | | unspecified | | | | Building [address] | | hyperlipidemia type | | | | [place], [place] | | | | | | [address] | | | | | | [phone] | | | +--------+---------+ + + + [...] this encounter Patient Instructions Patient Instructions Rivka Caro RD - 02/07/2017 11:35 AM PST documented in this encounter Progress Notes Rivka Caro RD - 02/07/2017 11:35 AM PSTFormatting of this note might be different fro m the original. [facility] Center of Preventive Cardiology, Nutrition Consultation Referring provider: Dr. Cristopher Soriano MD Referring diagnosis: obesity w/ recent gastric sleeve (in [place] - received no education) Visit type: Follow-up; ukcb-or-junx visit with patient Questions/Information desired today: Feeling pretty good. Has struggled w/ gout flares sinc e surgery. Confused about what to eat & how many calories/protein to get. Has lost a lot of hair. Struggling to eat slowly. ASSESSMENT MEDICAL HISTORY Patient Active Problem List Diagnosis Morbid obesity with BMI of 50.0-59.9, adult ([facility]) Hyperlipidemia Vitamin D deficiency Hypothyroidism Elevated lipoprotein(a) 102 mg/dl Metabolic syndrome CARLENE (obstructive sleep apnea) - sleep study in [place] AHI of 30 per hour. Controlled type 2 diabetes mellitus without complication, without long-term current use of insulin ([facility]) - Obesity s/p bariatric sleeve 10/03/2016 in [place] FOOD AND NUTRITION HISTORY Food Allergies/Intolerances: eggs - vomiting (since surgery; ok w/ egg whites) GI symptoms: none regularly Current diet: bariatric stage 4 Typical food intake: 24-hr recall B: Green smoothie: V8 green fusion (6-8 oz/ 8 oz = 60 kcal & 11 g sugar), spinach (2 cups), 1/4 c yogurt (Uruguayan, vanilla light) L: Hormel small plates protein [...] tart zepeda, B12 (gummy) Pertinent Medications: See [employer] medications for complete list. ANTHROPOMETRICS: Height: Ht [...] mindful eating, meal planning, & behavior modifications. [facility] ed patient to establish care / [facility] bariatric department to monitor progress & labs [...] (due to materials being pr ovided in Salvadorean, which she does not speak/read) MONITORING AND [...] & mineral (with iron) supplement, 2/day -add 4761-2141 mg calcium citrate with vitamin D/day (take [...] Contact information was provided; call or send [employer] message to dietitian with any questi ons. [...]
--- OUTSIDE RECORDS SUMMARY | ~2018-12-08 | XMS | Encounter Summary ---
Demographics + + + | Address | [address] | | | [place] [address] | + + + | Home Phone [...] Team Providers + +------+ + | Care Urology Physician Assistant Name | Role | Phone | [...] + + + | Closed | | Surgery | Diagnoses | Keesha Pozo | | | | | | Olinda Cox MD | [facility] | | | | | Hyperlipidem | [address] | [address] | | | | | ia | Radames | [address] | | | | | Metabolic | Ilir Munoz | Mailcode: | | | | | syndrome | [facility] [place] | [place] [facility] | | | | | Procedures | [address] | Health and | | | | | CONSULT TO | Phone: | Healing, | | | | | BARIATRIC | [phone] | [address] | | | | | SURGERY | Fax: | [place], [place] | | | | | | [phone] | [address] | | | | | | | Phone: | | | | | | | [phone] | | | | | | | Fax: | | | | | | | [phone] | +--------+--------+ + + + + Reason for Visit + + + | Reason | Comments | + + + | New patient | | | consultation | | + + + Consultation (Routine) +--------+--------+ + + + + | Status | Reason | Specialty | Diagnoses / | Referred By | Referred To | | | | | Procedures | Contact | Contact | +--------+--------+ + + + + | Closed | | Endocrinology | | Irma, | End General | | | | , Diabetes & | | Sky | [address] | | | | Metabolism | | MD Wilfredo | [address] | | | | | | [place] | [place] Munoz | | | | | | INTERNAL | Physician's | | | | | | MEDICINE | Pavilion | | | | | | [address] | Physician's | | | | | | [address] | Pavilion | | | | | | [address] | [place], [place] | | | | | | [place], | [address] | | | | | | [place] [address] | Phone: | | | | | | Phone: | [phone] | | | | | | [phone] | Fax: | | | | | | Fax: | [phone] | | | | | | [phone] | | +--------+--------+ + + + + Encounter Details +--------+---------+ + + + | Date | Type | Department | Care Team | Description | +--------+---------+ + + + | 10/28/ | Office | Mick Dyer | Tani Soriano MD | Hyperlipidemia | | 2013 | Visit | Diabetes Health | [address] | (Primary Dx); | | | | [facility] | [place], [place] | Vitamin D | | | | Pav[address] | [address] | deficiency; | | | | [address] | [phone] | Hypothyroidism; | | | | Physician's | | Metabolic syndrome | | | | Pavilion | | | | | | Physician's [address] | | | | | | [place], [place] | | | | | | [address] | | | | | | [phone] | | | +--------+---------+ + + + [...] + + + | Blood Pressure | 138/82 | 10/28/2013 1:06 PM | | | | | PDT | | + + + + + | Pulse | 70 | 10/28/2013 1:06 PM | | | [...] + + + + | Weight | 141.1 kg (311 lb) | 10/28/2013 1:06 PM | | | | | PDT | | + + + + + | Height | 157.5 cm (5' 2") | 10/28/2013 1:06 PM | | | | | PDT | | + + + + + | Body Mass Index | 56.88 | 10/28/2013 1:06 PM | | | | | PDT | | + + + + + documented in this encounter Patient Instructions Patient Instructions Olinda Pozo MD - 10/28/2013 3:00 PM PDTWe have ordered a weight loss medication called phentermine. Take this in the morning, play around around with what time. Work on continued efforts with diet and exercise Call the number to schedule the informational meeting with the bariatric surgery team. This offers the best chance jail for significant weight loss that can be maintained. Please consider sleep apnea testing Take care! documented in this encounter Progress Notes Tani Soriano MD - 12/01/2013 1:59 AM PDTFormatting of this note might be different from yvette goddard. ENDOCRINOLOGY CLINIC STAFF - Christie I have participated in hurst aspects of the review of records, patient interview and examinat ion, counseling, and formulation of the evaluation and treatment plan. I agree with documen tation by Dr. Pozo. Please see attached notes for full details of the visit. Patient Active Problem List Diagnosis Morbid obesity with BMI of 50.0-59.9, adult Hyperlipidemia Vitamin D deficiency Hypothyroidism Component Latest Ref Rng 10/28/2013 WHITE CELL [...] IMMATURE GRANULOCYTE# 0.00-0.03 K/cu mm 0.06 (H) TSH 0.50-5.07 mIU/L 1.09 FREE T4, SERUM 0.6-1.2 ng/dL 1.2 VITAMIN D 25 HYDROXY 30-80 ng/mL 30.5 Component Latest Ref [facility] 10/28/2013 GLUCOSE, PLASMA (LAB) 60-99 mg/dL 95 BUN, PLASMA (LAB) 6-20 mg/dL 17 CREATININE PLASMA (LAB) 0.60-1.10 mg/dL 0.83 EGFR - CITIZEN [place] >60 mL/min >60 EGFR NON -CITIZEN [place] >60 mL/min >60 SODIUM, PLASMA (LAB) 136-145 mmol/L 139 POTASSIUM, PLASMA (LAB) 3.4-5.0 mmol/L 3.6 CHLORIDE, PLASMA (LAB) 97-108 mmol/L 105 TOTAL CO2, PLASMA (LAB) 21-32 mmol/L 29 CALCIUM, PLASMA (LAB) 8.6-10.2 mg/dL 9.1 BILIRUBIN TOTAL 0.3-1.2 mg/dL 0.4 TOTAL PROTEIN, PLASMA (LAB) 6.4-8.2 g/dL 8.2 ALBUMIN, PLASMA (LAB) 3.5-4.7 g/dL 3.6 ALK PHOS 42-98 U/L 90 AST(SGOT) 15-41 U/L 30 ALT (SGPT) 12-60 U/L 38 ANION GAP 5 Component Latest Ref Rn 10/28/2013 10/28/2013 10/28/2013 3:18 PM 3:18 PM 3:18 PM CHOLESTEROL (LAB) <200 mg/dL 160 TRIGLYCERIDES <150 mg/dL 147 HDL CHOLESTEROL >40 mg/dL 53 HDL CMNT No Hemo LDL CHOLEST <100 mg/dL 78 VLDL CHOLESTEROL <31 mg/dL 29 NON-HDL CHOLESTEROL <130 mg/dL 107 SEDIMENTATION RATE 0-30 mm/hr 43 (H) LIPOPROTEIN (A) <=29 mg/dL 102 (H) Kacey Soirano M.D. Olinda Monahan MD - 1:35 PM PDT ENDOCRINOLOGY CLINIC NEW CONSULT Physician Requesting Consult: Dr. Solis/ PCP Reason for Consult:options for weight loss History of Present Illness: Ms. Skinner is a 53 yo morbidly obese F with a PMHx of depression, hypothyroidism, htn, h ld OA who was referred by her provider to discuss medical options for weight loss. Patient states that she was thin as a child and teenager (underweight even- states was 80# when became with her first child) Did gain some weight with of children- up to 130# after of last child at age 24 Stable weight until age 27 when patient's daughter Gained 80# in the year after she And then continued to increase since then, mostly eats poor diet as emotional response- gai ns up to 10# many years Is currently at lifetime maximal weight of 311# Wants to lose weight now bc son diagnosed with cancer and she is afraid he won't be around and she will need to take care of the grandkids- she wants to be around to do this. Was anxi ous to come here today bc was afraid would be told she was fat and nothing could be done. Diet- eats out 2 meals a day- both fast food or takeout from grocery store, etc. When stres sed food choices become more unhealthy Exercise- sedentary at work. Exercise limited by OA pain. Has recently started walking abou t 4 blocks 3x a week. No exertional SOB or CP/pressure. Has tried weight watchers and Curves in the past. Lost about 50# with curves and maintained for a year and 37# with weight watchers Looked into lap band in past but insurance didn't cover it Would be interested in learning more about bariatric surgery and medical weight loss option s PMHx Depression Hypothyroidism- managed by Dr. Solis. Has been on stable dose of LT4 since diagnosis maybe 3 years ago. Dx based on routine labs. Takes med first thing in the morning on empty stomach 20-30 mins before anything else Thyroid nodules- seen by Dr. Jarrett RIOS who said they were benign. Last us 01/16 htn- well-controlled on losartan hydrochlorthiazide and metop, gen runs 130s/70s, never abo ve 140/90 hld OA No diabetes, no heart conditions, lung conditions ROS- (see scanned pt sheet for more details) +worsened acid reflux- was on omeprazole in the past +fatigue- "tired all the time" ?depression vs. Weight x 1.5 years, stable +age spots +snoring and daytime sleeping + occ headaches +pain from OA +RIOS +abd swelling +anxiety/depression (-)NO CP, at rest or exertional, no palpitation, tremor, SOB, f/c, d/c Current Medication List Name Sig ASCORBIC ACID 500 MG TABLET Take 500 mg by mouth two times daily. CHOLECALCIFEROL (VITAMIN D3) 2,000 UNIT TABLET Take 2,000 Units by mouth once daily. DESVENLAFAXINE SUCCINATE ER 50 MG TABLET,EXTENDED RELEASE 24 HR Take 50 mg by mouth once da vicky. LEVOTHYROXINE 50 MCG TABLET Take 50 mcg by mouth once daily. LOSARTAN-HYDROCHLOROTHIAZIDE ORAL Take by mouth. LOVASTATIN 40 MG TABLET Take 40 mg by mouth once daily in the evening. Administer with even ing meal. MELOXICAM 15 MG TABLET Take 15 mg by mouth once daily. METOPROLOL TARTRATE 50 MG TABLET Take by mouth two times daily. VITAMIN B COMPLEX ORAL Take by mouth. (Not in a hospital admission) Allergies Allergen Reactions Penicillin G Hives and Dyspnea Sulfa (Sulfonamide Antibiotics) Hives History Social History Marital Status: Single Spouse Name: N/A Number of Children: N/A Years of Education: N/A Occupational History Not on file. Social History Main Topics Smoking status: Former Smoker Quit date: 02/05/1997 Smokeless tobacco: Not on file Alcohol Use: Not on file Drug Use: Not on file Sexual Activity: Not on file Other Topics Concern Not on file Social History Narrative No narrative on file Family history father- diabetes, BCC Mother- COPD, CAD with [place] at age 63, breast CA, thyroid disease Son with esophageal cancer Both maternal and paternal GM also with thyroid disease Paternal GM with lupus No other AI dz or endocrinopathies Physical Exam: BP 138/82 | Pulse 70 | RR 16 | Wt 141.069 kg (311 lb) Body mass index is 56.87 kg/(m^2). General Appearance: Morbidly obese, NAD, pleasant. In no acute distress HEENT: EOMI. No scleral icterus. Moist mucus membranes. No OP lesions. Erythema in posteri or OP Neck: JVP not elevated. Supple, no lymphadenopathy. Thyroid normal size, no nodules appreciated, nontender Chest: Lungs clear to ausculation bilaterally. Normal work of breathing. CV: RRR no r/m/g.+2 distal pulses in lower extremities. Abd: Abd obese, soft and non tender, nondistended. Normal bowel sounds. + light-striae but no purple striae Extremities: No edema, no cyanosis, good distal pulses Skin: Warm and dry, and well perfused/ + small amt of acanthosis on nape of neck Neurologic: Awake and oriented. No focal deficits. Biceps reflexes 2+ b/l. Fine trremor wit h arms outstretched Psych: appropriate affect, congruent. Labs: Outside labs (see scanned records for more details) 12/18: TSH 1.15 FT4 1.44 ESR 447 CRP 151 Na 139 K 4.3 Cr 0.88 Gluc 94 TC 173 TG 133 HDL 50.7 LDL 95 VLDL 28 Studies: ( (see scanned records for full report details) Outside thyroid ultrasound 01/2012: Impression 1) small 2.4mm cyst in the right lobe which is otherwise unremarkable. Left lobe with 2 ech osolid nodules measuring 7.7 x 4.7 x6.3 mm and 5x8 x4.7 x4.9 mm 2) the isthmus appears thickened but no discrete nodularity is seen Assessment/Plan: Ms. Skinner is a 53 yo F with morbid obesity here for discussion of weight loss options. She also has htn that is well controlled, hld, OA and depression/anxiety as well as hypothyr oidism on a small dose of LT4 with 2 <1cm thyroid nodules seen in the left lobe. #. Morbid obesity- patient is motivated to lose weight, but clearly frustrated by inability to sustain weight loss in the past and feelings of guilt and anxiety around this diagnosis. We spent an extensive amount of time discussing current understanding regarding body weight regulation, the role of the hypothalamus in the control of appetite and energy expenditure, and how in patients with a genetic predisposition to obesity the body weight set point incr eases. We discussed the importance of lifestyle (diet and exercise) as a first line therap y, as well as current medical and surgical options for weight loss. Given her degree of obes ity we recommended bariatric surgery as best chance for significant, maintained weight loss. We then recommended patient consider starting phentermine while awaiting workup for bariatr ic surgery. Discussed common side effects of this medication. Will start at 18.75mg daily a nd f/u in ~6 weeks. Will also obtain labs as below, last were almost 1 year prior. -internal referral to bariatric surgery -start phentermine 18.75mg daily. -recommend CARLENE evaluation for daytime sleepiness/fatigue in setting of obesity, snoring and headaches #. Thyroid nodules- f/u per PCP/Dr. Farias- patient should have repeat imaging to assess st ability of left lobe nodules #. Hypothyroidism- on low dose LT4 (ida weight-based). checking TFTs. Clinically euvolemic. #. hld- last FLP at goal on lovastatin. Rechecking (nonfasting) profile + Lp(a) today #. Vit D deficiency- vit D 25 oh level RTC 6-8 Weeks to review lab results and f/u phentermine start Patient was discussed and staffed with Dr. Soriano who agrees with this assessment and recom mendations. Olinda Pozo MD Endocrinology Fellow [id number] documented in this e ncounter Plan of Treatment Not on filedocumented as of this encounter Results LIPID SET (TRIG, T CHOL, HDL, CALC [...] | + + + + + | [facility] | [address] | [place] [address] | | | SERVICES, CORE | [address] [...] | | | (A) | Performed by [facility] | | REG UNIV | | | | Laboratories,[address] | | PTH - INTFC | | | | [place], [facility] [place] [address] | | | | | | [phone]. | | | | | | Prakash lockhart, | | | | | | MD, Lab. Director | | | | + + + + + + + + | Specimen | + + | Blood - Blood | + + + + + + + | Performing | Address | City/State/Zipcode | Phone Number | | Organization | | | | + + + + + | [facility] | [address] | [place], [place] | | | UNIV PTH - INTFC | | [address] | | + + + + + [...] + | [facility] | [address] | [place] [address] | | | SERVICES, NELDA | [address] | | | [...] | | | LABORATORY | | | [place] | | | SERVICES, | | | [...] | + + + + + | [facility] | [address] | [place] [address] | | | SERVICES, NELDA | [address] | | | + [...] + + | [facility] | [address] | [place] [address] | | | SERVICES, SPECIAL | [address] [...] + + | Test now performed at [facility]. New method effective 12/18/12. | [facility] | | | LABORATORY | | | [place] GONZALEZ | + + + + + + + + | Performing | Address | City/State/Zipcode | Phone Number | | Organization | | | | + + + + + | [facility] | [address] | [place] [address] | | | NELDA GONZALEZ | [address] [...] | + + + + + | [facility] | [address] | [place] [address] | | | NELDA GONZALEZ | [address] | | | + + + + + documented in this encounter Visit Diagnoses + + | Diagnosis | + + | Hyperlipidemia - Primary Other and unspecified hyperlipidemia | + + | Vitamin D deficiency | + + | Hypothyroidism Unspecified hypothyroidism | + + | Metabolic syndrome Dysmetabolic Syndrome X | + + documented in this encounter
--- OUTSIDE RECORDS SUMMARY | ~2018-12-08 | XMS | Encounter Summary ---
Demographics + + + | Address | [address] | | | [place] [address] | + + + | Home Phone [...] Team Providers + +------+ + | Care Staffing Rn Name | Role | Phone | + [...] | | | | | Metabolic | [place], [place] | Jen Munoz | | | | | syndrome | [address] | Mailcode: | | | | | Procedures | Phone: | [id number] | | | | | CONSULT TO | [phone] | [facility] | | | | | ADULT SLEEP | Fax: | Research | | | | | MEDICINE | [phone] | [place] [address] | | | | | | | [place], [place] | | | | | | | [address] | | | | | | | Phone: | | | | | | | [phone] | | | | | | | Fax: | | | | | | | [phone] | +--------+--------+ + + + + Encounter Details +--------+---------+ + + + | Date | Type | Department | Care Team | Description | +--------+---------+ + + + | 05/18/ | Office | Sleep Disorder | Fatmata Travis MD | Obstructive sleep | | 2016 | Visit | [facility] | [address] | apnea (Primary Dx) | | | | [facility] | [place], | | | | | [address] | [place] [address] | | | | | Jen Munoz Mailcode: | [phone] | | | | | CR139 [facility] | | | | | | Research Center | | | | | | [address] [place], [place] | | | | | | [address] | | | | | | [phone] | | | +--------+---------+ + + + [...] might be different from th e original. [facility] Sleep Disorders Program Followup ASSESSMENT/PLAN Rebel Skinner has h/o GERD reports snoring, EDS, awakening coughing htn, HL, situational depression, ordered split PSG last visit 09/2014. spencer study 11/24 14 revealed severe CARLENE 29/hr, O2 Kenny 84%. 01/2015: start APAP 6-15 from [facility] in [place]. -Encouraged weight loss. -Followup: Next Appointment in [facility] is on 05/19/15 at [...]
--- OUTSIDE RECORDS SUMMARY | ~2018-12-08 | XMS | Encounter Summary ---
Demographics + + + | Address | [address] | | | [place] [address] | + + + | Home Phone [...] Team Providers + +------+ + | Care Crushing Foreman Name | Role | Phone | + [...] | | | | | syndrome | [facility] [place] | [place] for | | | | | Procedures | [address] | Health and | | | | | CONSULT TO | Phone: | Healing, | | | | | BARIATRIC | [phone] | [address] | | | | | SURGERY | Fax: | [place], [place] | | | | | | [phone] | [address] | | | | | | | Phone: | | | | | | | [phone] | | | | | | | Fax: | | | | | | | [phone] | +--------+--------+ + + + + Reason [...] Diabetes & | | Sky | [address] | | | | Metabolism | [...] | | | | [address] | [place], [place] | | | | | | [place], | [address] | | | | | | [place] [address] | Phone: | | | | | | Phone: | [phone] | | | | | | [phone] | Fax: | | | | | | Fax: | [phone] | | | | | | [phone] | | +--------+--------+ + + + + [...] | | | [facility] | [place], [place] | Vitamin D | | | | Pav[address] | [address] | deficiency; | | | | [address] | [phone] | Hypothyroidism; | | | | Physician's | | Metabolic syndrome | | | | Pavilion | | | | | | Physician's [address] | | | | | | [place], [place] | | | | | | [address] | | | | | | [phone] | | | +--------+---------+ + + + [...] surgery team. This offers the best chance retirement for significant weight loss that can be [...] HYDROXY 30-80 ng/mL 30.5 Component Latest Ref [facility] 10/28/2013 GLUCOSE, PLASMA (LAB) 60-99 mg/dL 95 BUN, PLASMA (LAB) 6-20 mg/dL 17 CREATININE PLASMA (LAB) 0.60-1.10 mg/dL 0.83 EGFR - [place] >60 mL/min >60 EGFR NON -[place] >60 mL/min >60 SODIUM, PLASMA (LAB) 136-145 [...] LIPOPROTEIN (A) <=29 mg/dL 102 (H) Kacey Soriano M.D. Olinda Monahan MD - 1:35 PM [...] father- diabetes, BCC Mother- COPD, CAD with [place] at age 63, breast CA, thyroid disease [...] recom mendations. Olinda Pozo MD Endocrinology Fellow [id number] documented in this e ncounter Plan of [...] + + + + + | [facility] | [address] | [place] [address] | | | SERVICES, CORE | [address] [...] - INTFC | | | | [place], [facility] [place] [address] | | | | | | [phone]. | | | | | | Prakash [...] [facility] | [address] | [place], [place] | | | UNIV PTH - INTFC | | [address] | | + + + + + [...] [facility] | [address] | [place] [address] | | | SERVICES, NELDA | [address] [...] | | | LABORATORY | | | [place] CITIZ[place] | | | SERVICES, | | | [...] + + + + + | [facility] | [address] | [place] [address] | | | SERVICES, NELDA | [address] [...] + | [facility] | [address] | [place] [address] | | | SERVICES, SPECIAL | P[address] [...] + | Test now performed at [facility]. New method effective 12/18/12. | [facility] | | | LABORATORY | | | NELDA GONZALEZ | + + + + + + + + | Performing | Address | City/State/Zipcode | Phone Number | | Organization | | | | + + + + + | [facility] | [address] | [place] [address] | | | NELDA GONZALEZ | [address] [...] + + + + + | [facility] | [address] | [place] [address] | | | NELDA GONZALEZ | [address] [...]
--- OUTSIDE RECORDS SUMMARY | ~2018-12-08 | XMS | Encounter Summary ---
Demographics + + + | Address | [address] | | | [place] [address] | + + + | Home Phone [...] Team Providers + +------+ + | Care Real Estate Utilization Officer Name | Role | Phone | [...] | | 2014 | | Preventive at [facility] | [address] | | | | | [address] | [place], [place] | | | | | Mailcode: CH9A | [address] | | | | | [facility] | [phone] | | | | | and [place], | | | | | | [address] | | | | | | [place], [place] | | | | | | [address] | | | | | | [phone] | | | +--------+--------+ + + + [...]
--- OUTSIDE RECORDS SUMMARY | ~2018-12-08 | XMS | Encounter Summary ---
Demographics + + + | Address | [address] | | | [place] [address] | + + + | Home Phone [...] Author + + + | Author | [facility] | + + + | Organization | [facility] | + + + | Address | Unknown | + + + | Phone | Unavailable | + + + Support + + +---------+ + | Name | Relationship | Address | Phone | + + +---------+ + | Fanny Baez | ECON | Unknown | | + + +---------+ + Care Team Providers + +------+ + | Care Stove Polisher Name | Role | Phone | + [...] | | 2016 | | Preventive at [facility] | [address] | (phentermine 37.5 mg | | | | [address] | [place], [place] | ) | | | | Mailcode: CH9A | [address] | | | | | [facility] | [phone] | | | | | and Healing, | | | | | | [address] | | | | | | [place], [place] | | | | | | [address] | | | | | | [phone] | | | +--------+--------+ + + + [...]
--- OUTSIDE RECORDS SUMMARY | ~2018-12-08 | XMS | Encounter Summary ---
Demographics + + + | Address | [address] | | | [place] [address] | + + + | Home Phone [...] Team Providers + +------+ + | Care Bakery Supervisor Name | Role | Phone | + +------+ + | Sky Solis MD | PCP | | + +------+ + Encounter Details +--------+------+ + + + | Date | Type | Department | Care Team | Description | +--------+------+ + + + | 06/27/ | Lab | Laboratory at [facility] | | Metabolic syndrome | | 2017 | | [address] | | | | | | [place], [place] | | | | | | [address] | | | | | | [phone] | | | +--------+------+ + + + [...] + + + + | [facility] | [address] | [place] [address] | | | SERVICES, CORE | [address] [...] (H)Comment: Hgb A1C | <5.7 % | [facility] | | | A1C | Interpretive | [...] glycated albumin should be considered for monitoring regional intermodal truck driver | LABORATORY | | glycemic control in [...] | + + + + + | [facility] | [address] | [place] [address] | | | SERVICES, SPECIAL | [address] | | | | IMM + COAG | | | | + + + + + documented in this encounter Visit Diagnoses + + | Diagnosis | + + | Metabolic syndrome Dysmetabolic Syndrome X | + + documented in this encounter"
--- OUTSIDE RECORDS SUMMARY | ~2018-12-08 | XMS | Encounter Summary ---
Demographics + + + | Address | [address] | | | [place] [address] | + + + | Home Phone [...] Team Providers + +------+ + | Care Photo Equipment Technician Name | Role | Phone | [...] | | Hyperlipidem | MD Wilfredo | [address] | | | | | ia | [place] | Ave | | | | | Procedures | INTERNAL | [place], [place] | | | | | CONSULT TO | MEDICINE | [address] | | | | | CARDIOLOGY | [address] | Phone: | | | | | | [address] | [phone] | | | | | | [address] | Fax: | | | | | | [place], | [phone] | | | | | | [place] [address] | | | | | | | Phone: | | | | | | | [phone] | | | | | | | Fax: | | | | | | | [phone] | | +--------+--------+ + + + + Encounter Details +--------+---------+ + + + | Date | Type | Department | Care Team | Description | +--------+---------+ + + + | 09/16/ | Office | Cardiology | Tani Soriano MD | Hyperlipidemia | | 2015 | Visit | Preventive at [facility] | [address] | (Primary Dx); | | | | [address] | [place], [place] | Vitamin D | | | | Mailcode: CH9A | [address] | deficiency; | | | | [facility] | [phone] | Hypothyroidism, | | | | and Healing, | | unspecified | | | | [address] | | hypothyroidism type; | | | | [place], [place] | | Metabolic syndrome | | | | [address] | | | | | | [phone] | | | +--------+---------+ + + + [...] PLASMA (LAB) 0.60-1.10 mg/dL 0.82 EGFR - BAHAMIAN >60 mL/min >60 EGFR NON -BAHAMIAN >60 mL/min >60 SODIUM, PLASMA (LAB) 136-145 [...] - LIPID LAB <=150 mg/dl 173 (H) FMN-NWO-DSWO <=130 mg/dL 115 25-OH vitamin D determination [...] RTC 3 Months - pt lives in [place]; we will try to coordinate this with [...] | + + + + + | [facility] | [address] | [place] [address] | | | SERVICES, SPECIAL | PARK [...] | | | LABORATORY | | | BAHAMIAN | | | SERVICES, | | | [...] the MDRD equation recommended by the | [facility] | | National Kidney Disease Education Program. [...] | + + + + + | [facility] | [address] | [place] [address] | | | NELDA GONZALEZ | ILIR [...] | 173 (H) | <=150 mg/dl | [facility] | | | TRIGLYCERID | | | LAB | | | E - LIPID | | | | | | LAB | | | | | + +---------+ + + + | NON-HDL | 115 | <=130 mg/dL | [facility] | | | CHOLESTEROL | | | [...] [facility] | [address] | [place], [place] | | | | ILIR RODRIGEZ | [address] | | + + + + + | [facility] | [address] | [place], [place] | | | | IL[place] RODRIGEZ | [address] | | + + + + + [...]
--- OUTSIDE RECORDS SUMMARY | ~2018-12-08 | XMS | Encounter Summary ---
Demographics + + + | Address | [address] | | | [place] [address] | + + + | Home Phone | | + + + | Preferred Language | Unknown | + + + | Marital Status | Single | + + + | Episcopal Affiliation | Unknown | + + + [...] Team Providers + +------+ + | Care Splitting Machine Tender Name | Role | Phone | + [...] | | | | | CAR | [address] | [place] | | | | | PREVENTATIVE | Phone: | [address] | | | | | [facility] - | [phone] | | | | | | LIPIDS | Fax: | | | | | | | [phone] | | +--------+--------+ + + + + [...] | | | Procedures | INTERNAL | [place], [place] | | | | | CONSULT TO | MEDICINE | [address] | | | | | CARDIOLOGY | [address] | Phone: | | | | | | [address] | [phone] | | | | | | [address] | Fax: | | | | | | [place], | [phone] | | | | | | [place] [address] | | | | | | | Phone: | | | | | | | [phone] | | | | | | | Fax: | | | | | | | [phone] | | +--------+--------+ + + + + Encounter Details +--------+---------+ + + + | Date | Type | Department | Care Team | Description | +--------+---------+ + + + | 01/13/ | Office | Cardiology | Tani Soriano MD | Hyperlipidemia | | 2015 | Visit | Preventive at [facility] | [address] | (Primary Dx); | | | | [address] | [facility] [place] | Elevated | | | | Mailcode: CH9A | [address] | lipoprotein(a) 102 | | | | [facility] | [phone] | mg/dl; Other | | | | and Healing, | | specified | | | | [address] | | hypothyroidism; | | | | [place], [place] | | Metabolic syndrome | | | | [address] | | | | | | [phone] | | | +--------+---------+ + + + [...] different from yvette goddard. Endocrinology Clinic Subjective eRbel Skinner is a 54 y.o. woman who [...] snacking. She had the sleep study in [place] and apparently was found to have an [...]
--- OUTSIDE RECORDS SUMMARY | ~2018-12-08 | XMS | Encounter Summary ---
Demographics + + + | Address | [address] | | | [place] [address] | + + + | Home Phone | | + + + | Preferred Language | Unknown | + + + | Marital Status | Single | + + + | Caodaism Affiliation | Unknown | + + + | Race | White | + + + | Ethnic Group | Not or | + + + Author + + + | Author | [facility] | + + + | Organization | [facility] | + + + | Address | Unknown | + + + | Phone | Unavailable | + + + Support + + +---------+ + | Name | Relationship | Address | Phone | + + +---------+ + | Fanny Baez | ECON | Unknown | | + + +---------+ + Care Team Providers + +------+ + | Care Social Service Agency Director Name | Role | Phone | [...] [address] | [address] [facility] | | | | | Procedures | [facility] | [address] | | | | | [address] | [address] | Mailcode: | | | | | NIGHT PSG | [place], [place] | [address] | | | | | [place] | [address] | [place], [place] | | | | | POLYSOMNOGRA | Phone: | [address] | | | | | PHY W/CPAP | [phone] | Phone: | | | | | | Fax: | [phone] | | | | | | [phone] | Fax: | | | | | | | [phone] | +--------+--------+ + + + + Reason [...] | | | | | disorder | [address] | [address] | | | | | breathing | [address] | [address] | | | | | Metabolic | [place], [place] | Jen Munoz | | | | | syndrome | [address] | Mailcode: | | | | | Procedures | Phone: | [address] | | | | | CONSULT TO | [phone] | [facility] | | | | | [facility]ULT SLE[facility] | Fax: | Research | | | | | MEDICINE | [phone] | [id number] | | | | | | | [place], [place] | | | | | | | [address] | | | | | | | Phone: | | | | | | | [phone] | | | | | | | Fax: | | | | | | | [phone] | +--------+--------+ + + + + Encounter Details +--------+---------+ + + + | Date | Type | Department | Care Team | Description | +--------+---------+ + + + | 09/16/ | Office | Sleep Disorder | Norma Travis MD | Unspecified sleep | | 2015 | Visit | Medicine at [facility] | [address] | apnea (Primary Dx); | | | | [facility] | [address] [place], | Morbid obesity (HCC) | | | | [address] | [place] [address] | | | | | [place] Mailcode: | [phone] | | | | | [address] | | | | | | [facility] | | | | | | [address] [place], [place] | | | | | | [address] | | | | | | [phone] | | | +--------+---------+ + + + [...] of study and treatment options, lives in [facility]. -She agrees to take precautions to prevent [...] or inattention. Scor es 5/24 on their [place] Sleepiness Scale. Daytime somnolence is mild She [...] and vitals reviewed. MD NORMA Pappas MD [facility] Sleep Disorders Program documented in this encoun [...]
[~2018-12-08 07:06] MED LIST: ASPIRIN EC325 MG PO; CIPRO500 MG PO; CIPRO500 MG/5 M PO; COLCRYS0.6 MG PO; COZAAR25 MG PO; DESVENLAFAXINE50 M2 PO; GABAPENTIN600 MG PO; HEALTHYLAX17 GM PO; IRON325 M1 PO; KETOROLAC TROME10 MG PO; LASIX40 MG PO; LEVOTHYROXINE50 MCG PO; LIOTHYRONINE SO5 MCG PO; METOPROLOL TART50 MG PO; MULTIVITAMINS1 EAC8 PO; OMEPRAZOLE20 MG PO; OXYCODONE HCL5 MG PO; SENNA LAX8.6 MG PO; VITAMIN C500 M1 PO
--- OUTSIDE RECORDS SUMMARY | 2018-12-08 07:08 | XMS ---
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 Edith VISIT COUNT (12 MO.) 1 MARJORIE Cruz TOTAL 1 NOTE: Visits indicate total known visits. ED/UCC VISIT TRACKING (12 MO.) 12/08/2018 07:[address] [facility] [place] TYPE: Emergency COMPLAINT: - SOB, POST OF PROBLEM INPATIENT VISIT TRACKING (12 MO.) No inpatient visits to display in this time frame [email or web address]
[2018-12-08] MEDS ORDERED: OXYCODONE HCL5 MG PO (10:31)
--- NOTE | 2018-12-08 15:34 | EKG ---
[facility] [address] [facility] [place], [place] [address] Signed Normal sinus rhythm Normal ECG When compared with ECG of 31-OCT-2018 15:42, Nonspecific T wave abnormality now evident in Inferior leads Confirmed by VASYL SARMIENTO DO ([id number]) on 12/08/2018 3:33:49 PM Electronically Signed By: VASYL SARMIENTO DO 12/08/18 1534 PATIENT NAME: NACHOABISAIYOUSIF Electrocardiogram DATE OF : 58 PHYSICIAN: VASYL SARMIENTO DO REPORT #: [id number] REPORT IS CONFIDENTIAL AND NOT TO BE RELEASED WITHOUT AUTHORIZATION
== END 2018-12-08 10:50 | disposition home or self-care (01) ==
LOC: ED 07:06
DX: J18.9 Pneumonia, unspecified organism (principal); R07.9 Chest pain, unspecified; I10 Essential (primary) hypertension; E78.5 Hyperlipidemia, unspecified; Z87.891 Personal history of nicotine dependence; Z88.0 Allergy status to penicillin; Z88.2 Allergy status to sulfonamides; Z91.048 Other nonmedicinal substance allergy status; Z79.82 Long term (current) use of aspirin; Z79.899 Other long term (current) drug therapy
CPT/HCPCS: 71045; 71260; 80053; 83880; 84484; 85025; 93005; 93010; 96374; 99285-25; J2270

== ENCOUNTER 2019-10-19 15:17 | Emergency (ER) | payer OTHER ==
[~2019-10-19] VITALS: Ht 157.5 cm; Wt 108.9 kg
--- OUTSIDE RECORDS SUMMARY | 2019-10-19 15:20 | XMS ---
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 ETalat VISIT COUNT (12 MO.) 2 MARJORIE Cruz TOTAL 2 NOTE: Visits indicate total known visits. ED/UCC VISIT TRACKING (12 MO.) 10/19/2019 15:17 [facility] [place] TYPE: Emergency COMPLAINT: - KNEE PAIN, INJ 12/08/2018 07:06 [facility] TYPE: Emergency COMPLAINT: - SOB, POST OF PROBLEM DIAGNOSES: - Other nonmedicinal substance allergy status - Pneumonia, unspecified organism - Allergy status to penicillin - Personal history of nicotine dependence - correction (current) use of aspirin - Other group home (current) drug therapy - Chest pain, unspecified - Allergy status to sulfonamides status - Hyperlipidemia, unspecified - Essential (primary) hypertension - Shortness of breath INPATIENT VISIT TRACKING (12 MO.) No inpatient visits to display in this time frame [email or web address]
[2019-10-19] MEDS ORDERED: OMEPRAZOLE20 MG PO (15:32)
[2019-10-19] MEDS ORDERED: NUCYNTA75 MG PO (15:33)
== END 2019-10-19 17:38 | disposition home or self-care (01) ==
LOC: ED 15:17
DX: S83.91XA Sprain of unspecified site of right knee, initial encounter (principal); X50.1XXA Overexertion from prolonged static or awkward postures, initial encounter; I10 Essential (primary) hypertension; E78.5 Hyperlipidemia, unspecified; Z88.0 Allergy status to penicillin; Z88.2 Allergy status to sulfonamides; Z91.048 Other nonmedicinal substance allergy status; Z79.899 Other long term (current) drug therapy
CPT/HCPCS: 73560; 99283-25

== ENCOUNTER 2023-08-16 13:50 | Emergency (ER) | payer OTHER ==
[~2023-08-16 13:50] MED LIST changes: +CYTOMEL5 MCG PO; +NUCYNTA75 MG PO; +XARELTO10 MG PO
[2023-08-16] MEDS ORDERED: ADULT ASPIRIN R81 MG PO (14:08)
[2023-08-16] MEDS ORDERED: FAMOTIDINE20 MG PO (14:09)
[2023-08-16 14:23] LABS: EOSINOPHILS 4.9 % (0-6); HEMATOCRIT 37.1 % (35.0-50.0); HEMOGLOBIN 12.2 g/dL (12.0-18.0); LYMPHOCYTES 24.1 % (24-44); MCH 31.5 (27-36); MCHC 32.9 g/dl (30-36); MCV 95.8 fl (81-99); MONOCYTES 9.3 % (0-12); NEUTROPHILS 60.7 % (39-80); PLATELET COUNT 315 K/uL (140-440); RBC 3.87 M/ul (4.3-5.7); RDW 13.4 (10.5-15.0)
[2023-08-16 14:33] LABS: ALBUMIN/GLOBULIN RATIO 0.79 (1.1-2.4); ANION GAP 11.4 (7-21); BILIRUBIN, TOTAL 0.4 ng/dL (0.2-1.0); BUN/CREATININE RATIO 14.56 (6.0-28.6); CALCIUM 8.3 mg/dL (8.5-10.1); CREATININE, SERUM 1.51 mg/dL (0.55-1.02); MAGNESIUM 1.6 mg/dL (1.8-2.4); POTASSIUM 4.4 mmol/L (3.5-5.1); PROTEIN, TOTAL 6.8 g/dL (6.4-8.2)
[2023-08-16 14:49] LABS: ABO O; ANTIBODY SCREEN NEGATIVE; RH POSITIVE
[2023-08-16 16:22] VITALS: BP 124/54
--- NOTE | 2023-08-17 22:42 | EKG ---
[facility] [address] [place] [address] Signed Sinus bradycardia Inferior infarct , age undetermined Abnormal ECG When compared with ECG of 22-JAN-2020 11:50, Inferior infarct is now present T wave inversion now evident in Inferior leads Confirmed by Cameron Quintanilla MD () on 08/17/2023 10:42:44 PM Electronically Signed By: CAMERON QUINTANILLA MD 08/17/23 224 PATIENT NAME: YOUSIF SINGH Electrocardiogram DATE OF : 58 PHYSICIAN: CAMERON QUINTANILLA MD REPORT #: [id number] REPORT IS CONFIDENTIAL AND NOT TO BE RELEASED WITHOUT AUTHORIZATION
== END 2023-08-16 16:25 | disposition home or self-care (01) ==
LOC: ED 13:50
PROVIDERS: Emergency Medicine
DX: L76.32 Postprocedural hematoma of skin and subcutaneous tissue following other procedure (principal); I10 Essential (primary) hypertension; E78.5 Hyperlipidemia, unspecified; Z79.82 Long term (current) use of aspirin; Z79.899 Other long term (current) drug therapy; Z88.2 Allergy status to sulfonamides; Z88.0 Allergy status to penicillin; Z91.048 Other nonmedicinal substance allergy status
CPT/HCPCS: 36415; 71275; 80053; 83735; 84484; 85025; 86850; 86900; 86901; 93005; 93010; 99284-25; Q9967

== ENCOUNTER 2024-02-23 21:38 | Emergency (ER) | payer OTHER ==
[~2024-02-23] VITALS: Ht 157.5 cm; Wt 126.6 kg
[~2024-02-23 21:38] MED LIST changes: +ADULT ASPIRIN R81 MG PO; +FAMOTIDINE20 MG PO
[2024-02-23] MEDS ORDERED: DIPHTH,PERTUSS(ACELL),TET VAC 0.5 ML SYRINGE IM ONE (22:30)
[2024-02-23 23:14] VITALS: BP 143/88
== END 2024-02-23 23:14 | disposition home or self-care (01) ==
LOC: ED 21:38
DX: S91.311A Laceration without foreign body, right foot, initial encounter (principal); I10 Essential (primary) hypertension; E78.5 Hyperlipidemia, unspecified; Z23 Encounter for immunization; Z88.0 Allergy status to penicillin; Z88.2 Allergy status to sulfonamides; Z91.048 Other nonmedicinal substance allergy status; Z79.82 Long term (current) use of aspirin; Z79.899 Other long term (current) drug therapy; W25.XXXA Contact with sharp glass, initial encounter
CPT/HCPCS: 12001; 90471; 90715; 99282-25